=== PATIENT | male | born 1975 | race Two or more races ===

== ENCOUNTER 2021-01-19 09:57 | Emergency (ER) | payer BC, SELFPAY ==
--- NOTE | ~2021-01-19 | XR_ITS ---
EXAMINATION: XR CHEST CLINICAL INFORMATION: Chest pain COMPARISON: None TECHNIQUE: Frontal view of the chest was obtained. FINDINGS: There is no pneumothorax, pleural reaction, airspace consolidation, or effusion. The costophrenic sulci are clear. The heart is normal in size. The hilar and mediastinal contours and visualized bony structures are unremarkable. XR/XR chest 1V IMPRESSION: Unremarkable examination.
[2021-01-19 10:33] VITALS: BP 148/95; PULSE 91; RESP 20; TEMP 36.7; O2SAT 97; BMI 53.2
--- NOTE | 2021-01-19 10:39 | ECG_ITS ---
Test Reason : CHEST PAIN Blood Pressure : / mmHG Vent. Rate : 079 BPM Atrial Rate : 079 BPM P-R Int : 168 ms QRS Dur : 100 ms QT Int : 396 ms P-R-T Axes : 045 -22 031 degrees QTc Int : 454 ms Normal sinus rhythm Left axis deviation Minimal voltage criteria for LVH, may be normal variant ( R in aVL ) RSR' or QR pattern in V1 suggests right ventricular conduction delay Borderline ECG No previous ECGs available Referred By: Generic ED Physician Electronically Signed By:CONCEPCIÓN TOLBERT MD
[2021-01-19 10:57] LABS: MANUAL DIFF FLAG NO
[2021-01-19 11:02] LABS: Basophils Percent Auto 0.4 % (0-2); Eosinophils Absolute Auto 0.1 X10*3/uL (0.0-0.4); Hematocrit 42.9 % (42.0-52.0); Imm Gran Abs Auto 0.01 X10*3/uL (0.00-0.03); Imm Gran Pct Auto 0.1 % (0.0-0.4); Lymphocytes Absolute Auto 2.3 X10*3/uL (1.2-4.9); Lymphocytes Percent Auto 29.1 % (20-40); Mean Corpuscular HGB Conc 32.6 g/dl (31.0-36.0); Mean Corpuscular Hemoglobin 28.2 pg (27.0-33.0); Mean Corpuscular Volume 86.3 fL (80.0-98.0); Mean Platelet Volume 9.6 fL (9.4-12.4); Monocytes Absolute Auto 0.5 X10*3/uL (0.1-1.2); Monocytes Percent Auto 6.5 % (2-11); Neutrophils Absolute Auto 4.9 x10*3/uL (2.0-8.3); Neutrophils Percent Auto 62.9 % (45-73); Platelet Count 229 X10*3/uL (160-400); Red Blood Count 4.97 X10*6/uL (4.60-5.80); Red Cell Distribution Width 13.4 % (11.0-16.0); White Blood Count 7.8 X10*3/uL (4.8-10.8)
[2021-01-19 11:16] LABS: Anion Gap 12 (12-20); Blood Urea Nitrogen 15 mg/dL (9-16); Calcium 8.9 mg/dL (8.4-10.2); Carbon Dioxide 25 mmol/L (22-29); Chloride 104 mmol/L (96-108); Creatinine Clr Calc Pharmacy 168.9; Estimated Glomerular Filt Rate > 60; Glucose Random 128 mg/dL (60-115); Potassium 3.8 mmol/L (3.3-5.1); Sodium 137 mmol/L (135-145)
[2021-01-19 11:24] LABS: Troponin-I High Sensitivity 4.3 ng/L (<3.5-35.0)
[2021-01-19 11:55] VITALS: BP 138/81; PULSE 80; RESP 18; TEMP 36.6; O2SAT 96
--- NOTE | 2021-01-19 12:16 | ED_ITS ---
HPI - Chest Pain General Chief Complaint: Chest Pain Stated Complaint: HTN Time Seen by Provider: 01/19/21 12:16 Source: patient Mode of arrival: ambulatory Limitations: no limitations History of Present Illness HPI narrative: 45-YEAR-OLD MALE CAME IN FOR EVALUATION OF CHEST PAIN. 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 Patient nonsmoker, no history of diabetes. Patient is also complaining occipital headache since this morning, patient has no headache now. Related Data Home Medications Medication Instructions Recorded Confirmed acetaminophen 500 mg tablet 500 mg PO Q6H PRN 01/19/21 (Tylenol Extra Strength) Allergies Allergy/AdvReac Type Severity Reaction Status Date / Time No Known Allergies Allergy Unverified 11/07/19 15:33 Environmental Allergy Unknown Uncoded 11/29/17 00:00 Review of Systems Review of Systems: All other systems are reviewed and are negative Constitutional: Reports as per HPI and Reports no additional constitutional complaints Eyes: Reports as per HPI and Reports no additional eye complaints Reports system reviewed and no additional complaints, except as documented Cardiovascular: Reports as per HPI and Reports no additional cardiovascular complaints Respiratory: Reports as per HPI and Reports no additional respiratory complaints Gastrointestinal: Reports as per HPI and Reports no additional gastrointestinal complaints Genitourinary: Reports no additional female genitourinary complaints Musculoskeletal: Reports no additional musculoskeletal complaints Skin/Breast: Reports system reviewed and no additional complaints, except as docu Psychiatric: Reports no additional psychiatric complaints Endocrine: Reports no additional endocrine complaints Hematologic/Lymphatic: Reports no additional hematologic/lymphatic complaints Allergic/Immunologic: Reports no additional allergic/immunologic complaints Reports system reviewed and no additional complaints, except as documented and Reports Abnormal speech present [facility] [place] Past Medical History Medical History Hypertension Social History Social History Patient Tobacco Use Status: Former Tobacco user (4 years ago ) Advance Directives: No Advance Directives Information Provided: No Physical Exam Vital Signs: Vital Signs: Last Vital Signs Temp 98 F 01/19/21 11:55 Pulse 80 01/19/21 11:55 Resp 18 01/19/21 11:55 BP 138/81 01/19/21 11:55 Pulse Ox 96 01/19/21 11:55 Body Mass Index 53.2 Vital signs have been reviewed as appeared to be correct. Blood pressure normal. Heart rate normal. Respiration rate normal. Temperature normal. Oxygen saturation normal. Appearance: Alert. Oriented X3. No acute distress. Head: Normal external exam. Normocephalic. Atraumatic. No Stewart signs noted. No raccoon eyes noted Eyes: PERRLA. EOMI. Conjunctiva and sclera normal. Eyelids normal. ENT: TM's Normal. Pharynx normal. Uvula midline. Moist mucous membranes. No t rismus noted. No drooling noted. No muffled voice noted. Neck: Normal inspection. Neck supple. FROM. No adenopathy. Thyroid Normal. No meningeal signs. No neck mass noted. CVS: Normal heart rate and rhythm. Heart sound normal. No murmurs noted. Pulses normal throughout. Respiratory: No respiratory distress. Painless inspiration. Breath sounds normal. No wheezes/rales/rhonchi noted. Chest nontender. No accessory muscle usage noted or decreased air movement noted. Abdomen: Soft, obese, nontender Bowel sounds normal in all 4 quadrants. No distention noted. No organomegaly noted. No visible injury noted. Back: No CVA tenderness. Full range of motion noted. Skin: Skin warm and dry. Normal skin color. Normal skin turgor. No rashes/lesions/lacerations noted. Extremities: No lower extremity edema. Extremities exhibit normal range of motion. Extremities nontender. Neuro: Oriented X 3. Cranial nerve exam: II-XII are grossly intact No motor deficit. No sensory deficit. Reflexes normal. Course Course Course Narrative: Assessment and plan. 45-year-old male came in for evaluation of 1 episode of chest pain last night lasted for about 5 minutes, never re-occurred, unremarkable EKG, unremarkable troponin, chest x-ray is normal. Patient has been chest pain free for the past 15 hours. Patient also was complaining of headache that he had when his blood pressure was elevated but now he has no headache. With normal neuro exam. Patient was instructed to follow up with his PCP and keep monitoring his blood pressure. MDM - Chest Pain Medical Records Data Attestation: I reviewed the patient's medical records. Lab Data Attestation: I reviewed the patient's lab results. Result diagrams: 01/19/21 10:52 01/19/21 10:52 Labs: Lab Results 01/19/21 01/19/21 01/19/21 Range/Units 10:52 10:52 10:52 WBC 7.8 (4.8-10.8) X10*3/uL RBC 4.97 (4.60-5.80) X10*6/uL Hgb 14.0 (14.0-18.0) g/dl Hct 42.9 (42.0-52.0) % MCV 86.3 (80.0-98.0) fL MCH 28.2 (27.0-33.0) pg MCHC 32.6 (31.0-36.0) g/dl RDW 13.4 (11.0-16.0) % Plt Count 229 (160-400) X10*3/uL MPV 9.6 (9.4-12.4) fL Immature Gran % (Auto) 0.1 (0.0-0.4) % Neut % (Auto) 62.9 (45-73) % Lymph % (Auto) 29.1 (20-40) % [place] % (Auto) 6.5 (2-11) % Eos % (Auto) 1.0 (0-4) % Baso % (Auto) 0.4 (0-2) % Lymph # (Auto) 2.3 (1.2-4.9) X10*3/uL [place] # (Auto) 0.5 (0.1-1.2) X10*3/uL Eos # (Auto) 0.1 (0.0-0.4) X10*3/uL Baso # (Auto) 0.0 (0.0-0.2) X10*3/uL Abs Immat Gran (auto) 0.01 (0.00-0.03) X10*3/uL Absolute Neuts (auto) 4.9 (2.0-8.3) x10*3/uL Absolute Nucleated RBC 0.000 (0.0-0.012) X10*3/uL Nucleated RBC % (auto) 0.0 (0.0-0.2) /100WBC Sodium 137 (135-145) mmol/L Potassium 3.8 (3.3-5.1) mmol/L Chloride 104 (96-108) mmol/L Carbon Dioxide 25 (22-29) mmol/L Anion Gap 12 (12-20) BUN 15 (9-16) mg/dL Creatinine 0.80 (0.5-1.4) mg/dL Estim Creat Clear Calc 168.9 Estimated GFR > 60 Random Glucose 128 H (60-115) mg/dL Calcium 8.9 (8.4-10.2) mg/dL Troponin I High Sens 4.3 (<3.5-35.0) ng/L Imaging Data Chest x-ray: Radiologist's impression: Unremarkable chest x-ray. ECG Data ECG #1: Interpretation: Normal sinus rhythm at 79 beats per minutes, normal intervals, nonspecific ST-T changes. Discharge Plan Discharge Clinical Impression: Chest pain Patient Disposition: Home, Self-Care Instructions: Chest Pain (ED) Prescriptions: No Action acetaminophen [Tylenol Extra Strength] 500 mg tablet 500 mg PO Q6H PRNRF: 0 Referrals: Warner Burns, FITNESS ATTENDANT-BC [Primary Care Provider] - 2 days Stand Alone Forms: Work/School Release
== END 2021-01-19 12:31 | disposition home or self-care (01) ==
PROVIDERS: Emergency Provider Emergency Medicine; PCP Nurse Practitioner Family
DX: R07.9 Chest pain, unspecified (principal); I10 Essential (primary) hypertension
CPT/HCPCS: 36415; 71045; 80048; 84484; 85025; 93005; 99283

== ENCOUNTER 2021-05-03 09:20 | Outpatient (REF) | payer BC, SELFPAY ==
[2021-05-03 11:29] LABS: Appearance Urine TURBID; Color Urine YELLOW; Glucose Urine UA NEG (NEG); Leukocyte Esterase Urine NEG (NEG); Nitrite Urine NEG (NEG); PH 5.5 (5.0-8.0); Specific Gravity - Urine >= 1.030 (1.005-1.025); UACC Culture Trigger NO; Urine Blood NEG (NEG); Urine Ketones NEG (NEG); Urine Protein 1+ MG/DL (NEG-TRACE)
[2021-05-03 11:40] LABS: MANUAL DIFF FLAG NO
[2021-05-03 11:52] LABS: Amorphous Sediment Urine 4+ /LPF; Basophils Percent Auto 0.7 % (0-2); Eosinophils Absolute Auto 0.3 X10*3/uL (0.0-0.4); Eosinophils Percent Auto 5.4 % (0-4); Hematocrit 45.3 % (42.0-52.0); Hemoglobin 14.4 g/dl (14.0-18.0); Imm Gran Abs Auto 0.02 X10*3/uL (0.00-0.03); Imm Gran Pct Auto 0.3 % (0.0-0.4); Lymphocytes Percent Auto 34.4 % (20-40); Mean Corpuscular HGB Conc 31.8 g/dl (31.0-36.0); Mean Corpuscular Hemoglobin 28.2 pg (27.0-33.0); Mean Corpuscular Volume 88.6 fL (80.0-98.0); Mean Platelet Volume 10.4 fL (9.4-12.4); Monocytes Absolute Auto 0.4 X10*3/uL (0.1-1.2); Monocytes Percent Auto 6.4 % (2-11); Neutrophils Percent Auto 52.8 % (45-73); Platelet Count 218 X10*3/uL (160-400); RBC Urine 0 /HPF (0); Red Blood Count 5.11 X10*6/uL (4.60-5.80); Red Cell Distribution Width 13.5 % (11.0-16.0); Squamous Epithelial Cell Urine TRACE /LPF; WBC Urine 0 /HPF (0-4); White Blood Count 5.8 X10*3/uL (4.8-10.8)
[2021-05-03 12:09] LABS: Alanine Aminotransferase 24 U/L (0-40); Alkaline Phosphatase 61 U/L (39-117); Anion Gap 12 (12-20); Aspartate Amino Transferase 14 U/L (5-37); Bilirubin Total 0.4 mg/dL (0.0-1.0); Blood Urea Nitrogen 17 mg/dL (9-16); Calcium 8.5 mg/dL (8.4-10.2); Carbon Dioxide 26 mmol/L (22-29); Chloride 108 mmol/L (96-108); Cholesterol 151 mg/dL; Estimated Glomerular Filt Rate > 60; Glucose Fasting 122 mg/dL (60-99); HDL Cholesterol 35 mg/dL; LDL Cholesterol Calculated 106 mg/dl; Potassium 4.1 mmol/L (3.3-5.1); Sodium 142 mmol/L (135-145); Total Protein 6.5 g/dL (6.5-8.0); Triglycerides 53 mg/dL
[2021-05-03 12:35] LABS: TSH reflex Free T4 0.85 uIU/mL (0.32-4.0)
[2021-05-03 12:41] LABS: Estimated Average Glucose 126 mg/dL
== END 2021-05-03 09:21 | disposition home or self-care (01) ==
LOC: HO.HMGCLDS 09:20
PROVIDERS: PCP Nurse Practitioner Family; Visit Provider Nurse Practitioner Family
DX: Z00.00 Encounter for general adult medical examination without abnormal findings (principal); I10 Essential (primary) hypertension; R73.01 Impaired fasting glucose
CPT/HCPCS: 36415; 80053; 80061; 81001; 83036; 84443; 85025

== ENCOUNTER 2021-08-13 19:22 | Emergency (ER) | payer BC, SELFPAY ==
--- NOTE | 2021-08-13 | ECG_ITS ---
Test Reason : CHEST PAIN Blood Pressure : / mmHG Vent. Rate : 079 BPM Atrial Rate : 079 BPM P-R Int : 166 ms QRS Dur : 102 ms QT Int : 380 ms P-R-T Axes : 049 -22 034 degrees QTc Int : 435 ms Normal sinus rhythm Minimal voltage criteria for LVH, may be normal variant ( R in aVL ) Borderline ECG When compared with ECG of 19-JAN-2021 10:44, No significant change was found Referred By: Generic ED Physician Electronically Signed By:JUSTIN VERDIN MD
[2021-08-13 19:25] VITALS: BMI 53.1
[2021-08-13 19:33] VITALS: BP 147/81; PULSE 84; RESP 18; TEMP 36.9; O2SAT 98
[2021-08-13 19:36] LABS: MANUAL DIFF FLAG NO
[2021-08-13 19:37] LABS: Basophils Percent Auto 0.4 % (0-2); Eosinophils Absolute Auto 0.2 X10*3/uL (0.0-0.4); Eosinophils Percent Auto 2.5 % (0-4); Hematocrit 41.7 % (42.0-52.0); Hemoglobin 13.8 g/dl (14.0-18.0); Imm Gran Abs Auto 0.02 X10*3/uL (0.00-0.03); Imm Gran Pct Auto 0.3 % (0.0-0.4); Lymphocytes Absolute Auto 1.8 X10*3/uL (1.2-4.9); Lymphocytes Percent Auto 26.3 % (20-40); Mean Corpuscular HGB Conc 33.1 g/dl (31.0-36.0); Mean Corpuscular Volume 87.6 fL (80.0-98.0); Mean Platelet Volume 9.5 fL (9.4-12.4); Monocytes Absolute Auto 0.5 X10*3/uL (0.1-1.2); Monocytes Percent Auto 7.8 % (2-11); Neutrophils Absolute Auto 4.3 x10*3/uL (2.0-8.3); Neutrophils Percent Auto 62.7 % (45-73); Platelet Count 216 X10*3/uL (160-400); Red Blood Count 4.76 X10*6/uL (4.60-5.80); Red Cell Distribution Width 13.5 % (11.0-16.0); White Blood Count 6.9 X10*3/uL (4.8-10.8)
[2021-08-13 19:53] LABS: Alanine Aminotransferase 33 U/L (0-40); Albumin Level 4.1 g/dL (3.5-5.0); Alkaline Phosphatase 61 U/L (39-117); Anion Gap 11 (12-20); Aspartate Amino Transferase 17 U/L (5-37); Bilirubin Total 0.3 mg/dL (0.0-1.0); Blood Urea Nitrogen 18 mg/dL (9-16); Calcium 8.5 mg/dL (8.4-10.2); Carbon Dioxide 26 mmol/L (22-29); Chloride 106 mmol/L (96-108); Creatinine Clr Calc Pharmacy 171.2; Estimated Glomerular Filt Rate > 60; Glucose Random 177 mg/dL (60-115); Potassium 4.2 mmol/L (3.3-5.1); Sodium 139 mmol/L (135-145); Total Protein 6.5 g/dL (6.5-8.0)
[2021-08-13 19:56] LABS: Troponin-I High Sensitivity < 3.5 ng/L (<3.5-35.0)
--- NOTE | 2021-08-13 20:06 | ED_ITS ---
HPI - Chest Pain General Chief Complaint: Chest Pain Stated Complaint: Chest pain Time Seen by Provider: 08/13/21 20:05 History of Present Illness HPI narrative: Patient is a 46-year-old male presents today with having chest pain. The chest pain is mid chest. 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 Denies any leg swelling no history of DVTs in the past no history of travel. No history of blood clots. Patient claims the pain lasted for about an hour still have some residual pain but not as severe. Patient denies any fever chills no cough no congestion immunized for COVID. No history diabetes. Positive history of hypertension un bob control. No history of [place]. No history of smoking. No focal weakness. Related Data Home Medications Medication Instructions Recorded Confirmed acetaminophen 500 mg tablet 500 mg PO Q6H PRN 01/19/21 07/12/21 (Tylenol Extra Strength) Previous Rx's Medication Instructions Recorded lisinopril 10 mg tablet 10 mg PO DAILY 30 days #30 tabs 05/22/21 Allergies Allergy/AdvReac Type Severity Reaction Status Date / Time Environmental Allergy Unknown unknown Uncoded 07/12/21 09:43 Review of Systems Review of Systems: Positive chest pain No diaphoresis No fever no chills All system reviewed otherwise negative PMFSH Past Medical History Attestation statement: The following information was validated with the patient. Medical History Hypertension Family History Family History Other Mental health disorder Social History Social History Housing: House Patient Tobacco Use Status: Former Tobacco user (4 years ago ) Tobacco use type: Cigarette e-Cigarette/Vaping Use: Never Used Second Hand Smoke Exposure: No Advance Directives: No Advance Directives Information Provided: Yes Current occupational status: employed Cognitive needs: No Hearing needs: No Vision needs: No Physical Exam Vital Signs: Vital Signs: Last Vital Signs Temp 97.6 F 08/13/21 21:24 Pulse 78 08/13/21 21:24 Resp 18 08/13/21 21:24 BP 170/89 H 08/13/21 21:24 Pulse Ox 96 08/13/21 21:24 O2 Del Method 08/13/21 21:24 BMI result Body Mass Index 53.1 Appearance: Alert. Oriented X3. No acute distress. Eyes: Pupils equal, round and reactive to light. ENT: Pharynx normal. Neck: Normal inspection. Neck supple. No lymph nodes noted. No crepitus CVS: Normal heart rate and rhythm. Pulses normal. Normal S1 and S2 Respiratory: No respiratory distress. Breath sounds normal. No Wheezing. No rales Abdomen: Soft and nontender. No rigidity. No distention. good BS x4 Skin: Skin warm and dry. Normal skin color. Normal skin turgor. Extremities: No lower extremity edema. Neurovascular intact to all extremities. No Lacerations. No Rash Neuro: Oriented X 3. No motor deficit. No sensory deficit. Moving all extermities. No slurred speech MDM - Chest Pain MDM Narrative Medical decision making narrative: EKG showed a sinus pattern heart rate is 80 VA QRS QTC within normal limits is no acute ST segment elevation noted. Two sets of cardiac enzymes were negative. Patient well-appearing. Chest pain atypical for ACS. Patient risk factor being hypertension. No history diabetes no history of TX. Patient's EKG was benign appearing. Heart score is a 3. Will have patient follow-up on an outpatient basis. In stable condition. Medical Records Data Attestation: I reviewed the patient's medical records. Lab Data Attestation: I reviewed the patient's lab results. Result diagrams: 08/13/21 19:32 08/13/21 19:32 Labs: Lab Results 08/13/21 08/13/21 08/13/21 Range/Units 19:32 19:32 19:32 WBC 6.9 (4.8-10.8) X10*3/uL RBC 4.76 (4.60-5.80) X10*6/uL Hgb 13.8 L (14.0-18.0) g/dl Hct 41.7 L (42.0-52.0) % MCV 87.6 (80.0-98.0) fL MCH 29.0 (27.0-33.0) pg MCHC 33.1 (31.0-36.0) g/dl RDW 13.5 (11.0-16.0) % Plt Count 216 (160-400) X10*3/uL MPV 9.5 (9.4-12.4) fL Immature Gran % (Auto) 0.3 (0.0-0.4) % Neut % (Auto) 62.7 (45-73) % Lymph % (Auto) 26.3 (20-40) % [place] % (Auto) 7.8 (2-11) % Eos % (Auto) 2.5 (0-4) % Baso % (Auto) 0.4 (0-2) % Lymph # (Auto) 1.8 (1.2-4.9) X10*3/uL [place] # (Auto) 0.5 (0.1-1.2) X10*3/uL Eos # (Auto) 0.2 (0.0-0.4) X10*3/uL Baso # (Auto) 0.0 (0.0-0.2) X10*3/uL Abs Immat Gran (auto) 0.02 (0.00-0.03) X10*3/uL Absolute Neuts (auto) 4.3 (2.0-8.3) x10*3/uL Absolute Nucleated RBC 0.000 (0.0-0.012) X10*3/uL Nucleated RBC % (auto) 0.0 (0.0-0.2) /100WBC Sodium 139 (135-145) mmol/L Potassium 4.2 (3.3-5.1) mmol/L Chloride 106 (96-108) mmol/L Carbon Dioxide 26 (22-29) mmol/L Anion Gap 11 L (12-20) BUN 18 H (9-16) mg/dL Creatinine 0.78 (0.5-1.4) mg/dL Estim Creat Clear Calc 171.2 Estimated GFR > 60 Random Glucose 177 H D (60-115) mg/dL Calcium 8.5 (8.4-10.2) mg/dL Total Bilirubin 0.3 (0.0-1.0) mg/dL AST 17 (5-37) U/L ALT 33 (0-40) U/L Alkaline Phosphatase 61 (39-117) U/L Troponin I High Sens < 3.5 (<3.5-35.0) ng/L Total Protein 6.5 (6.5-8.0) g/dL Albumin 4.1 (3.5-5.0) g/dL 08/13/21 Range/Units 21:33 WBC (4.8-10.8) X10*3/uL RBC (4.60-5.80) X10*6/uL Hgb (14.0-18.0) g/dl Hct (42.0-52.0) % MCV (80.0-98.0) fL MCH (27.0-33.0) pg MCHC (31.0-36.0) g/dl RDW (11.0-16.0) % Plt Count (160-400) X10*3/uL MPV (9.4-12.4) fL Immature Gran % (Auto) (0.0-0.4) % Neut % (Auto) (45-73) % Lymph % (Auto) (20-40) % [place] % (Auto) (2-11) % Eos % (Auto) (0-4) % Baso % (Auto) (0-2) % Lymph # (Auto) (1.2-4.9) X10*3/uL [place] # (Auto) (0.1-1.2) X10*3/uL Eos # (Auto) (0.0-0.4) X10*3/uL Baso # (Auto) (0.0-0.2) X10*3/uL Abs Immat Gran (auto) (0.00-0.03) X10*3/uL Absolute Neuts (auto) (2.0-8.3) x10*3/uL Absolute Nucleated RBC (0.0-0.012) X10*3/uL Nucleated RBC % (auto) (0.0-0.2) /100WBC Sodium (135-145) mmol/L Potassium (3.3-5.1) mmol/L Chloride (96-108) mmol/L Carbon Dioxide (22-29) mmol/L Anion Gap (12-20) BUN (9-16) mg/dL Creatinine (0.5-1.4) mg/dL Estim Creat Clear Calc Estimated GFR Random Glucose (60-115) mg/dL Calcium (8.4-10.2) mg/dL Total Bilirubin (0.0-1.0) mg/dL AST (5-37) U/L ALT (0-40) U/L Alkaline Phosphatase (39-117) U/L Troponin I High Sens < 3.5 (<3.5-35.0) ng/L Total Protein (6.5-8.0) g/dL Albumin (3.5-5.0) g/dL Discharge Plan Discharge Clinical Impression: Chest pain Patient Disposition: Home, Self-Care Instructions: Chest Pain (ED) Prescriptions: No Action lisinopril 10 mg tablet 10 mg PO DAILY 30 Days Qty: 30 3RF acetaminophen [Tylenol Extra Strength] 500 mg tablet 500 mg PO Q6H PRN Referrals: Moises Cleary MD [Physician] -
[2021-08-13 21:24] VITALS: BP 170/89; PULSE 78; RESP 18; TEMP 36.4; O2SAT 96
[2021-08-13 22:01] LABS: Troponin-I High Sensitivity < 3.5 ng/L (<3.5-35.0)
[2021-08-13 22:45] VITALS: BP 176/98; PULSE 80; RESP 14; O2SAT 96
== END 2021-08-13 22:53 | disposition home or self-care (01) ==
PROVIDERS: Emergency Provider Emergency Medicine Emergency Medical Services; PCP Nurse Practitioner Family
DX: R07.89 Other chest pain (principal); Z87.891 Personal history of nicotine dependence; Z79.899 Other long term (current) drug therapy
CPT/HCPCS: 36415; 80053; 84484; 85025; 93005; 99283; 99284

== ENCOUNTER 2022-01-06 08:33 | Day surgery (SDC) | payer BC, SELFPAY ==
[2021-12-29 20:07] VITALS: BMI 50.1
--- NOTE | 2022-01-05 12:05 | HO.ANESPROP2 ---
Documented by User: Madeleine Chaudhari NP 01/05/22 12:09 HPI - Anesthesia Eval Consult details Narrative: 46yo M for Excision Lipoma Forehead, Left Excision scalp Cyst PMFSH Active Problems Active Problems: All Active Problems (Updated 12/29/21 @ 20:07 by Kae Torres RN) Chest pain (Acute) HTN (hypertension) (Acute) Elevated fasting glucose (Acute) Chest discomfort (Acute) Physical exam (Acute) Left shoulder strain (Acute) Right shoulder strain (Acute) Dermoid cyst of head (Acute) Lipoma of forehead (Acute) Morbid (severe) obesity due to excess calories (Acute) Past Medical History Medical History (Updated 12/29/21 @ 20:07 by Kae Torres RN) Asthma, stable Hypertension Migraine Snores Family History Family History Other Mental health disorder Surgical History Surgical History (Updated 12/29/21 @ 20:05 by Kae Torres RN) S/P excision of lipoma [place] teeth extracted Social History Social History Housing: House Patient Tobacco Use Status: Former Tobacco user Tobacco use type: Cigarette e-Cigarette/Vaping Use: Never Used Second Hand Smoke Exposure: No Use of substances other than those prescribed or required for medical reasons: No Are you DNR?: No Advance Directives: No Advance Directives Information Provided: Yes Advance Directives on File: No Recently lost weight without trying: No Nutrition Risks: No Nutritional Risk Current occupational status: employed Cognitive needs: No Hearing needs: No Vision needs: No Meds Allergies Allergy/AdvReac Type Severity Reaction Status Date / Time Environmental Allergy Unknown unknown Uncoded 12/07/21 07:54 Home Medications Medication Instructions Recorded Confirmed Last Taken Type acetaminophen 500 mg tablet 500 mg PO Q6H PRN Pain 01/19/21 12/29/21 Unknown History (Tylenol Extra Strength) Exam Exam Date and Time: January 05, 2022 1205 Height,Weight and Vital Signs: Height 5 ft 8 in Weight 149.685 kg Pertinent Lab Results Pertinent Lab Results: Laboratory Tests 08/13/21 08/13/21 19:32 19:32 WBC 6.9 Hgb 13.8 L Hct 41.7 L Plt Count 216 Sodium 139 Potassium 4.2 Chloride 106 Carbon Dioxide 26 BUN 18 H Creatinine 0.78 Narrative Narrative: EKG 07/2021 Vent. Rate : 079 BPM ? ? Atrial Rate : 079 BPM ?? P-R Int : 166 ms? QRS Dur : 102 ms ? ? QT Int : 380 ms ? ? ? P-R-T Axes : 049 -22 034 degrees ?? QTc Int : 435 ms ? Normal sinus rhythm Minimal voltage criteria for LVH, may be normal variant ( R in aVL ) Borderline ECG When compared with ECG of 19-JAN-2021 10:44, No significant change was found Assessment and Plan Assessment Anesthesia Assessment: Chart Reviewed Documented by User: Philip Aguirre MD 01/06/22 12:46 PMFSH Past Medical History Medical History (Updated 12/29/21 @ 20:07 by Kae Torres RN) Asthma, stable Hypertension Migraine Snores Family History Family History Other Mental health disorder Family history of problems with anesthesia: No Surgical History Surgical History (Updated 12/29/21 @ 20:05 by Kae Torres RN) S/P excision of lipoma [place] teeth extracted History of Problems with Anesthesia: No Social History Social History Housing: House Patient Tobacco Use Status: Former Tobacco user Tobacco use type: Cigarette e-Cigarette/Vaping Use: Never Used Second Hand Smoke Exposure: No Use of substances other than those prescribed or required for medical reasons: No Are you DNR?: No Advance Directives: No Advance Directives Information Provided: Yes Advance Directives on File: No Recently lost weight without trying: No Nutrition Risks: No Nutritional Risk Current occupational status: employed Cognitive needs: No Hearing needs: No Vision needs: No Meds Allergies Allergy/AdvReac Type Severity Reaction Status Date / Time Environmental Allergy Unknown unknown Uncoded 12/07/21 07:54 Home Medications Medication Instructions Recorded Confirmed Last Taken Type acetaminophen 500 mg tablet 500 mg PO Q6H PRN Pain 01/19/21 12/29/21 Unknown History (Tylenol Extra Strength) Exam Airway Mallampati Class: III TM Dist: <=3cm Neck ROM: Full Loose/Missing/Broken Teeth: Yes and Upper Heart: ok Lungs: ok Assessment and Plan Assessment Anesthesia Assessment: Anesthesia Plan Discussed and Chart Reviewed Final Anesthetic Review Family History of Problems with Anesthesia: No History of Problems with Anesthesia: No NPO: Yes ASA Class: III Final Preanesthetic Review: No Changes in Pt Med Stat, Meds/Allgs Chart Reviewed, Consent Obtained/Reviewed and Anes Risks/Benef Reviewed Patient Risk: High Procedure Risk: Low Anesthetic Plan Anesthetic Plan: GA and Agree w/ Assess. and Plan Disposition: Standard PACU
[2022-01-06] VITALS (13 sets, daily range): BP systolic 102–133; BP diastolic 60–72; PULSE 59–80; RESP 18–20; TEMP 36.3–36.8; O2SAT 91–100; BMI 51.7
--- NOTE | 2022-01-06 | ECG_ITS ---
Test Reason : postop Blood Pressure : / mmHG Vent. Rate : 062 BPM Atrial Rate : 062 BPM P-R Int : 172 ms QRS Dur : 102 ms QT Int : 448 ms P-R-T Axes : 045 -14 037 degrees QTc Int : 454 ms Normal sinus rhythm Minimal voltage criteria for LVH, may be normal variant ( R in aVL ) RSR' or QR pattern in V1 suggests right ventricular conduction delay Nonspecific T wave abnormality Inferior leads When compared with ECG of 13-AUG-2021 19:21, No significant change was found Heart rate has decreased Referred By: Tien Stewart Electronically Signed By:CONCEPCIÓN TOLBERT MD
[2022-01-06] MEDS: Lactated Ringers 1,000 ML 100 ML IVCONT (10:11)
--- NOTE | 2022-01-06 10:40 | MHC.SHP ---
Pre-Procedural Eval Section A Date of Service: 01/06/22 The patient is an INPATIENT: No The History & Physical has been completed within 30 days and I have reviewed it.: Yes Section B Chief Complaint: lipoma, cyst Allergies: Allergies Allergy/AdvReac Type Severity Reaction Status Date / Time Environmental Allergy Unknown unknown Uncoded 12/07/21 07:54 Plan I have reviewed the history and physical and performed a pertinent physical examination on my patient. No changes have occurred unless specified.
--- NOTE | 2022-01-06 13:51 | W.PM.OPN ---
Operative Note Operative Note Date of Service: 01/06/22 Narrative: Preop diagnosis: [1) Lipoma, forehead; sebaceous cyst, LEFT retroauricular scalp] Postop diagnosis: [1) sub fascial forehead lipoma measuring approximately 3.5 by 3.0 cm; left retroauricular scalp sebaceous cyst, noninfected] Procedure: [1) excision of a subfascial lipoma on the forehead with intermediate closure of 5 cm incision; 2) excision of sebaceous cyst, left return to a reticular scalp] Surgeon: Bennie Back MD Assist: [none] Anesthesia: [General via LMA; local Lidocaine, 1% & bupivicaine, 0.5% w/ epi] Estimated blood loss: [3cc] Specimen: [1) forehead lipoma; 2) LEFT scalp/retroauricular sebaceous cyst] Intraoperative findings: [Subfascial/frontalis lipoma on the forehead; noninfected sebaceous cyst left retroauricular scalp skin] Indications: [The patient is a 46-year-old gentleman who is had a slowly growing lipoma on his forehead that suddenly started to rapidly grow and is causing grooming issues given its proximity to his forehead and scalp hairline. He also has a sebaceous cyst behind his left ear that is growing and has no signs or symptoms of infection, but again, due to grooming issues he wanted it removed. I reviewed the inherent risks of bleeding, infection, scar formation, possibility of wound complications that could cause additional scarring or needed another procedure and the possibility of recurrence. Activity restrictions were reviewed and apparently understood. The patient declined the option of a 2nd opinion wanted to proceed.] Procedure: [The patient was identified in preoperative holding by myself and marked. He denied interval change to his health history. 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 He was placed in operating suite 3 supine position and general via LMA was administered with excellent effect. He was then prepped and draped using Betadine and his hair clipped in the area of the sebaceous cyst and near the forehead to minimize possible fire risk. H was then positioned with his head elevated 30 degrees and slightly turned to his right Local was infiltrated into the skin and subcutaneous tissues. At the forehead, a 5 cm incision was made sharply and carried into subcutaneous tissues using electrocautery for hemostasis. The lipoma was not identified in the subcutaneous tissues, consequently, the fascia was opened and the lipoma very clearly demonstrated. Tenotomy scissors were used to remove the lipoma from the skull and the area was irrigated copiously inspected for hemostasis which was good. An intermediate closure using interrupted 3-0 Polysorb on the fascia was performed, but the skin was closed with 4-0 polypropylene sutures. The area was then washed and dried. Attention was then directed to the left retroauricular scalp where local it previously been infiltrated. A transverse incision measuring approximately 3 cm was made and careful circumferential of the cyst was performed with extraction of the entire cyst wall and contents. The area was then irrigated and interrupted 3-0 polypropylene sutures used to close the skin. The area was, the patient's face and scalp were all washed bacitracin and dressings applied. Patient tolerated the procedure well was sent extubated the recovery in stable condition. All sponge needle instrument counts were correct. At the patient's request, I contacted his mother at [phone] and apprised her of the operation, activity restrictions and recommendations regarding ice and [id number] Tylenol/ibuprofen mix. Her questions seemed to be satisfactorily answered.]
[2022-01-06] MEDS: Acetaminophen 325 MG TABLET 650 MG PO (14:42)
--- NOTE | 2022-01-06 15:12 | PC.NURSE ---
BS 122. EKG and labs ordered by Dr. Stewart. Dr. Wade, Dr. Stewart and Dr. Aguirre assessed pt prior to orders.
[2022-01-06 15:13] LABS: Glucose, Whole Blood 122 mg/dL (60-115)
--- NOTE | 2022-01-06 15:14 | PC.NURSE ---
ekg at bedside. Patient denies chest pain. VS WNL. only diaphoresis noted. pt tolerating PO fluids well. notes pain improvement at this time.
--- NOTE | 2022-01-06 15:32 | PM.EVENT ---
Event Note Date of Service: 01/06/22 Event Note: Patient seen in PACU secondary to diaphoresis. He denies chest pain, difficulty breathing or shortness of breath. He had some left scalp pain that was rendered pain-free by Tylenol. At this time, he denies any significant issues. Case reviewed with Dr. Aguirre; EKG WNL; troponin pending Incision care instructions were reviewed again with the patient. The patient seems to understand.
[2022-01-06 16:01] LABS: Troponin-I High Sensitivity < 3.5 ng/L (<3.5-35.0)
--- NOTE | 2022-01-06 16:04 | PC.NURSE ---
Dr. Stewart and Dr. Wade updated regarding lab results. Both stated patient can be discharged home. Diaphoresis is resolved.
== END 2022-01-06 16:13 | disposition home or self-care (01) ==
LOC: HO.SSS 08:33
PROVIDERS: Anesthesiology; PCP Nurse Practitioner Family; Visit Provider Surgery
PROC: (CPT 21014; principal; 2022-01-06 11:00)
PROC: (CPT 21014; 2022-01-06 11:00)
DX: D17.0 Benign lipomatous neoplasm of skin and subcutaneous tissue of head, face and neck (principal); L72.11 Pilar cyst; I97.89 Other postprocedural complications and disorders of the circulatory system, not elsewhere classified; R61 Generalized hyperhidrosis; I10 Essential (primary) hypertension; R73.03 Prediabetes; J45.909 Unspecified asthma, uncomplicated; R07.9 Chest pain, unspecified; R06.83 Snoring; G43.909 Migraine, unspecified, not intractable, without status migrainosus; E66.01 Morbid (severe) obesity due to excess calories; Z68.43 Body mass index [BMI] 50.0-59.9, adult; Z79.899 Other long term (current) drug therapy; Z87.891 Personal history of nicotine dependence
CPT/HCPCS: 21014; 11422; 36415; 82947; 84484; 88304; 93005; J0690; J3010

== ENCOUNTER 2022-12-06 11:36 | Outpatient (AMB) | payer BC, SELFPAY ==
--- NOTE | 2022-12-06 11:41 | MHC.OFFVIS ---
Intake Vital Signs 12/06/22 11:42 Height 5 ft 7 in Weight 324 lb 15.382 oz BMI 50.9 BP 136/58 L Blood Pressure Location Lt brachial Position Sitting Pulse 75 Intake Visit Reasons: Colonoscopy Screening Intake Note: Patient presents to in office visit today as a new patient for colonoscopy screening. CC: One episode of diarrhea a few days ago but is now resolved. Hx of hemorrhoids and colonoscopy when PT was about 16-17 years old. Denies having any other GI symptoms or concerns today. 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 He is referred by Warner Burns of [facility] [place]. PMX Asthma Hypertension Morbid obesity Migraines Snoring Dermoid cyst of the forehead Elevated fasting glucose Right and left shoulder pain * SURGICAL HISTORY Forehead excision [place] teeth extracted TOnsillectomy age 16ish * ALLERGIES: NKDA * [place] LABS: NONE RECENT TODAY'S VISIT He had a prior colonoscopy in his teen years for RB and roids. HE denies any bowel or upper GI problems. There are no prior problems with anesthesia or sedation. He has well controlled asthma and snores at night but not tested for WILL, no cardiac problems. No ID problems. There is no known FHX of crc or polyps. [facility] Medical History (Updated 12/06/22 @ 12:20 by SATURNINO Richard) Migraine Snores Asthma, stable Hypertension Surgical History History of tonsillectomy H/O colonoscopy S/P excision of lipoma [place] teeth extracted Family History Other Mental health disorder Social History Housing: House Patient Tobacco Use Status: Former Tobacco user Tobacco use type: Cigarette e-Cigarette/Vaping Use: Never Used Second Hand Smoke Exposure: No Current occupational status: employed Cognitive needs: No Hearing needs: No Vision needs: No Review of Systems Const Denies fatigue, Denies fever(s), Denies night sweats, Denies poor appetite and Denies weight loss Eyes Details: glasses Reports requires corrective lenses ENT Reports Normal hearing present, Denies dental pain, Denies dysphagia, Denies hearing loss, Denies mouth pain, Denies odynophagia, Denies throat swelling, Denies tongue swelling and Reports other (Dentition adequate) Card Reports no additional complaints Resp Reports no additional complaints GI Denies abdominal pain, Denies melena, Denies bloating, Denies hematochezia, Denies constipation, Denies GI cramping, Denies dysphagia, Denies excessive flatus, Denies early satiety, Denies heartburn, Denies diarrhea, Denies nausea, Denies odynophagia, Denies vomiting and Denies hematemesis Skin/Breast Denies pruritus, Denies lesions, Denies rash and Denies jaundice Neuro Reports Normal hearing present and Denies Abnormal speech present Endo Denies fatigue Aller/Immun Denies throat swelling and Denies tongue swelling Physical Exam Vital Signs: Last Vital Signs Pulse 75 12/06/22 11:42 BP 136/58 L 12/06/22 11:42 BMI result Body Mass Index 50.9 Const General: cooperative, no acute distress, well developed and well groomed Nutritional Appearance: well nourished and obese morbidly obese Orientation/consciousness: oriented to person, oriented to place and oriented to time Limitations: No language barrier HEENT Head: Yes normocephalic and Yes atraumatic Eyes General: appearance normal, both eyes and all related structures Pupils: Equal, round and reactive pupils present Neck Neck: Yes normal visual inspection and Yes no lymphadenopathy Thyroid: Thyroid normal Resp Effort & Inspection: normal respiratory effort and able to speak in complete sentences Auscultation: clear to auscultation bilaterally Cardio Rate: regular rate Rhythm: regular rhythm Heart sounds: Normal, physiologic split S2 sound present Peripheral pulses: radial pulses present and posterior tibial pulses present GI Inspection: No distended, Yes Abdominal panniculus present and Yes obesity Palpation (GI): Soft to palpation, nontender, no guarding, not rigid and No hepatosplenomegaly present Percussion: Yes normal to percussion Auscultation: normal bowel sounds Rectal Exam - Male: Yes deferred Skin General skin exam: no rashes or lesions noted, turgor normal, skin not dry, no jaundice, No spider nevi and no striae Rashes: no rashes Nails: normal Neuro General: oriented to person, oriented to place and oriented to time Cranial nerves: Yes Equal, round and reactive pupils present and Yes Normal hearing present Speech: No Abnormal speech present Extrem General: Yes normal to inspection, No clubbing, No cyanosis and No edema Psych Appearance: grossly normal and well kempt Mental Status: mental status grossly normal Speech and movement: Normal speech and movement present Affect: normal affect Attitude: cooperative Thought process: Normal thought process present and not confabulating Thought content: Normal thought content present Insight: Good insight present (Psych) Judgement: Good judgement present (Psych) Assessment & Plan Assessment & Plan (1) Pre-op examination: Code(s): Z01.818 - Encounter for other preprocedural examination Plan: He had a prior colonoscopy in his teen years for RB and roids. HE denies any bowel or upper GI problems. There are no prior problems with anesthesia or sedation. He has well controlled asthma and snores at night but not tested for WILL, no cardiac problems. No ID problems. There is no known FHX of crc or polyps. (2) Morbid (severe) obesity due to excess calories: Code(s): E66.01 - Morbid (severe) obesity due to excess calories (3) Asthma, stable: Code(s): J45.909 - Unspecified asthma, uncomplicated (4) Snores: Comment: ?WILL NOT TESTED Code(s): R06.83 - Snoring Orders: Orders Colonoscopy - GI Use Only Today Z01.818 - Encounter for other preprocedural examination Medications: New peg 3350-electrolytes 236-22.74-6.74 -5.86 gram (Golytely) until fecal effluent is clear; do not exceed a total volume of 2,000 mL 240 mL PO Q10M 1 day 4,000 mL 0RF Z12.11 - Encounter for screening for malignant neoplasm of colon Coding Level of Care Code New Pt Level 3 (77680) Diagnoses Pre-op examination Z01.818 Morbid (severe) obesity due to excess calories E66.01 Asthma, stable J45.909 Snores R06.83
[2022-12-06 11:42] VITALS: BP 136/58; PULSE 75; BMI 50.9
== END 2022-12-06 12:55 | disposition home or self-care (01) ==
PROVIDERS: PCP Nurse Practitioner Family; Visit Provider Nurse Practitioner
DX: Z01.818 Encounter for other preprocedural examination (principal); Z12.11 Encounter for screening for malignant neoplasm of colon; K52.9 Noninfective gastroenteritis and colitis, unspecified
CPT/HCPCS: S0285

== ENCOUNTER → 2022-12-06 11:36 | Outpatient (BNVA) | payer BC, SELFPAY | PROVIDERS: PCP Nurse Practitioner Family; Visit Provider Nurse Practitioner ==

== ENCOUNTER 2022-12-19 09:10 | Outpatient (REF) | payer BC, SELFPAY | END 2022-12-19 09:11 | disposition home or self-care (01) | LOC: HO.LAB 09:10 | PROVIDERS: PCP Nurse Practitioner Family; Visit Provider Nurse Practitioner | DX: Z13.89 Encounter for screening for other disorder (principal) ==

== ENCOUNTER 2023-01-27 08:10 | Outpatient (AMB) | payer BC, SELFPAY ==
--- NOTE | 2023-01-27 09:47 | AM.OFFWIN_ITS ---
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) Intake Note: pt is here for c/o right knee pain Patient Tobacco Use Status: Former Tobacco user Allergies No Known Drug Allergies Allergy (Unknown, Verified 01/27/23 09:49) none Environmental Allergy (Unknown, Uncoded 12/07/21 07:54) unknown Do you need a note to return to daycare/school/sports/work: Yes HPI HPI Comments History of Present Illness Details 1010 47-year-old male history of obesity, hyp ertension, WILL presents with right-sided knee pain since last Monday, patient reports he was walking last Monday out of his office heard a pop in his right knee in suddenly started experiencing pain. Reports he has been wearing a knee brace with some relief. Pain is worse when he sits still for long periods of times or at time when he stands up and walks goes up a step. He denies numbness, tingling, fevers, chills, blunt trauma. Physical exam slight discomfort with range of motion of right knee particularly with ambulation. Negative anterior, posterior drawer. Positive Lynne's sign. 2+ dorsalis pedis, anterior tibialis and posterior to his the Allis pulses equal bilateral History and physical exam concerning for possible meniscus injury versus osteoarthritis. Other differentials include inflammatory arthritis, knee sprain or strain. Unlikely neurovascular compromise or threat to limb Plan at this time imaging will give orthopedic referral. Educated patient on diagnosis and treatment plan, answered all question, patient verbalizes understanding. At this time patient will be discharged home, advised to return with new or worsening symptoms. Educated on worrisome signs and symptoms and when to return. At this time I feel comfortable discharge home. [facility] Medical History Migraine Snores Asthma, stable Hypertension Surgical History History of tonsillectomy H/O colonoscopy S/P excision of lipoma [place] teeth extracted Family History Other Mental health disorder Social History Housing: House Patient Tobacco Use Status: Former Tobacco user Tobacco use type: Cigarette e-Cigarette/Vaping Use: Never Used Second Hand Smoke Exposure: No Current occupational status: employed Cognitive needs: No Hearing needs: No Vision needs: No Review of Systems Const Details: Constitutional : No Weight loss, No Fever, No Chills, No Fatigue, No Malaise ENT/Mouth : No sore throat, No Rhinorrhea Eyes: No Eye Pain, No Swelling, No Redness Cardiovascular : No Chest Pain, No SOB, No Dyspnea on Exertion, No Orthopnea, No Edema, No Palpitations Respiratory : No Cough, No Sputum, No Wheezing Gastrointestinal : No Nausea, No Vomiting, No Diarrhea, No Constipation, No abdominal Pain, No Hematochezia, No Melena Genitourinary : No Dysuria, No Urinary Frequency, No Hematuria, Musculoskeletal : + joint pain, No Myalgias, + Joint Swelling Skin : No Skin Lesions, No rash Neuro : No Weakness, No Numbness, No Dizziness, No Headache Psych : No Anxiety/Panic, No Depression All other systems reviewed and are negative All systems reviewed & are unremarkable except as noted in HPI and below Physical Exam Vital Signs: Last Vital Signs Temp 98.0 F 01/27/23 09:48 Pulse 78 01/27/23 09:48 BP 152/90 H 01/27/23 09:48 Pulse Ox 98 01/27/23 09:48 Oxygen Delivery Method Room Air 01/27/23 09:48 BMI result Body Mass Index 51.1 Vital signs stable Appearance: Alert.? Oriented X3.? No acute distress.? Head: Normocephalic, atraumatic, no step-offs or deformities Eyes: Pupils equal, round and reactive to light.? ENT: Pharynx normal.? Neck: Normal inspection.? Neck supple.? CVS: Normal heart rate and rhythm.? Pulses normal.? Respiratory: No respiratory distress.? Breath sounds normal.? Abdomen: Soft and nontender.? Skin: Skin warm and dry.? Normal skin color.? Normal skin turgor.? Extremities: No lower extremity edema.? No calf ttp. 5/5 strength to bilateral upper and lower extremities +slight discomfort with range of motion of right knee particularly with ambulation. Negative anterior, posterior drawer. Positive Lynne's sign. 2+ dorsalis pedis, anterior tibialis and posterior to his the Allis pulses equal bilateral Back: No midline tenderness, no C-spine tenderness, full range of motion, no CVA tenderness bilaterally Neuro: Oriented X 3.? No motor deficit.? No sensory deficit. CN 2-12 intact Assessment & Plan Assessment & Plan (1) Right knee pain: Code(s): M25.561 - Pain in right knee Plan Take your medications as prescribed. If you were prescribed antibiotics today, it is important that you take your medication to their entirety, do not skip any doses, do not finish them early. Follow-up with your primary care provider this week. Return to the emergency department with new or worsening symptoms. Such as fevers, chills, chest pain, shortness of breath, nausea, vomiting, dizziness, headache, vision changes, lethargy In case of emergency call 911 Orders: Orders XR knee RT 2V Today M25.561 - Pain in right knee Referrals Orthopedics Referral M25.561 - Pain in right knee Medications: New lisinopril 10 mg PO DAILY 30 tabs 0RF Coding Level of Care Code Est Pt Level 3 (34458) Diagnoses Right knee pain M25.561
[2023-01-27 09:48] VITALS: BP 152/90; PULSE 78; TEMP 36.7; O2SAT 98; BMI 51.1
== END 2023-01-27 10:52 | disposition home or self-care (01) ==
PROVIDERS: PCP Nurse Practitioner Family; Visit Provider Physician Assistant
DX: M25.561 Pain in right knee (principal)
CPT/HCPCS: 99213

== ENCOUNTER 2023-01-27 10:02 | Outpatient (REF) | payer BC, SELFPAY ==
--- NOTE | ~2023-01-27 | XR_ITS ---
EXAMINATION: XR KNEE, RIGHT CLINICAL INFORMATION: Right knee pain. COMPARISON: None available. TECHNIQUE: Four views of the right knee. FINDINGS: Small suprapatellar effusion. No fracture or dislocation. Mild medial knee joint narrowing. XR/XR knee RT 2V IMPRESSION: Small suprapatellar effusion. No acute bony pathology.
== END 2023-01-27 10:03 | disposition home or self-care (01) ==
LOC: HO.HMGCX 10:02
PROVIDERS: PCP Nurse Practitioner Family; Visit Provider Physician Assistant
DX: M25.561 Pain in right knee (principal)
CPT/HCPCS: 73560

== ENCOUNTER 2023-02-22 07:43 | Outpatient (AMB) | payer BC, SELFPAY ==
--- NOTE | 2023-02-22 07:45 | MHC.OFFVIS ---
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 Patient reports he was walking out of his office heard a pop in his right knee in suddenly started experiencing pain. He states wearing a knee brace provides him mild relief. The patient has tried Tylenol and anti-inflammatory medicines which gave him minimal relief. He has also done physical therapy exercises which aggravated his pain. He states that his right knee will give out several times per day. Allergies No Known Drug Allergies Allergy (Unknown, Verified 02/22/23 07:56) none Environmental Allergy (Unknown, Uncoded 12/07/21 07:54) unknown Medication List - Last Reconciled 02/22/23 by David Santo MD acetaminophen (Tylenol Extra Strength) 500 mg PO Q6H PRN ibuprofen 800 mg PO Q8H PRN lisinopril 10 mg PO DAILY lisinopril 10 mg PO DAILY 30 days [facility] Medical History Migraine Snores Asthma, stable Hypertension Surgical History History of tonsillectomy H/O colonoscopy S/P excision of lipoma [place] teeth extracted Family History Other Mental health disorder Social History Housing: House Patient Tobacco Use Status: Former Tobacco user Tobacco use type: Cigarette e-Cigarette/Vaping Use: Never Used Second Hand Smoke Exposure: No Current occupational status: employed Cognitive needs: No Hearing needs: No Vision needs: No Physical Exam Vital Signs: BMI result Body Mass Index 51.1 Const Other: Well-nourished well-developed very friendly male awake alert and oriented x3 in no acute distress Extrem Other: Bilateral lower extremity examination shows good capillary refill, no skin lesions noted, normal sensation light touch Right knee examination shows a minimal effusion, minimal crepitus with range of motion, tenderness along his medial joint line, positive Lynne's test, no instability Results Reviewed Results Reviewed: Standing full weight-bearing x-rays of the patient's right knee show mild grade 1 Kellgren joint space narrowing, no acute bony abnormalities Assessment & Plan Assessment & Plan (1) Right knee pain: Code(s): M25.561 - Pain in right knee Plan Mr. Pradhan presents with progressively worsening right knee pain and giving way most likely due to a tear of his medial meniscus. Thus, I will send the patient for an MRI of his right knee for further evaluation of his medial meniscus. If he does have a significant tear I will recommend arthroscopic surgery to optimize is future functional level. I will see him back once the MRI is completed to discuss the findings and treatment options. Feel free to call me at any time should questions regarding his orthopedic management arise. Thank you very much for asking me to see this very friendly gentleman. I spent 22 minutes in reviewing the patient's records and imaging studies, seeing the patient and documenting in the medical record. Orders: Orders MR knee RT wo con Today M25.561 - Pain in right knee Coding Level of Care Code New Pt Level 2 (08755) Diagnoses Right knee pain M25.561
[2023-02-22 07:47] VITALS: BMI 51.1
== END 2023-02-22 08:06 | disposition home or self-care (01) ==
PROVIDERS: PCP Nurse Practitioner Family; Visit Provider Orthopaedic Surgery
DX: M25.561 Pain in right knee (principal)
CPT/HCPCS: 99202

== ENCOUNTER → 2023-02-22 07:43 | Outpatient (BNVA) | payer BC, SELFPAY | PROVIDERS: PCP Nurse Practitioner Family; Visit Provider Orthopaedic Surgery ==

== ENCOUNTER 2023-03-08 07:37 | Outpatient (AMB) | payer BC, SELFPAY ==
--- NOTE | 2023-03-08 07:39 | A.OFFVIS_ITS ---
Intake Intake Visit Reasons: ov-Right knee MRI review Intake Note: Kali is a 47 year old male who presents today with complaints of right knee pain and giving way. Patient reports he was walking out of his office heard a pop in his right knee in suddenly started experiencing pain. He states wearing a knee brace provides him mild relief. The patient has tried Tylenol and anti- inflammatory medicines which gave him minimal relief. He has also done physical therapy exercises which aggravated his pain. He states that his right knee will give out several times per day. Allergies No Known Drug Allergies Allergy (Unknown, Verified 03/08/23 07:39) none Environmental Allergy (Unknown, Uncoded 03/08/23 07:39) unknown Medication List - Last Reconciled 03/08/23 by David Santo MD acetaminophen (Tylenol Extra Strength) 500 mg PO Q6H PRN ibuprofen 800 mg PO Q8H PRN lisinopril 10 mg PO DAILY lisinopril 10 mg PO DAILY 30 days [facility] Medical History Migraine Snores Asthma, stable Hypertension Surgical History History of tonsillectomy H/O colonoscopy S/P excision of lipoma [place] teeth extracted Family History Other Mental health disorder Social History Housing: House Patient Tobacco Use Status: Former Tobacco user Tobacco use type: Cigarette e-Cigarette/Vaping Use: Never Used Second Hand Smoke Exposure: No Current occupational status: employed Cognitive needs: No Hearing needs: No Vision needs: No Physical Exam Const Other: Well-nourished well-developed very friendly male awake alert and oriented x3 in no acute distress Extrem Other: Bilateral lower extremity examination shows good capillary refill, no skin lesions noted, normal sensation light touch Right knee examination shows a minimal effusion, minimal crepitus with range of motion positive Lynne's test, tenderness along his medial joint line, no instability Results Reviewed Results Reviewed: Standing full weight-bearing x-rays of the patient's right knee show minimal grade 1 Kellgren joint space narrowing, no acute bony abnormalities MRI of the patient's right knee shows mild diffuse joint space narrowing as well as a tear of the medial meniscus Assessment & Plan Assessment & Plan (1) Right knee pain: Code(s): M25.561 - Pain in right knee Plan Mr. Pradhan presents with progressively worsening right knee pain and mechanical symptoms due to a tear of his medial meniscus. I had a lengthy discussion with the patient regarding the treatment options. At this point he has failed continued non operative treatments. The risks and benefits of right knee arthroscopic surgery were discussed at length with the patient. The patient wishes to proceed with surgery. Surgery will most likely involve right knee diagnostic arthroscopy with partial medial meniscectomy. The patient does understand that he may not get 100% relief of his symptoms depending on the severity of his degenerative changes. The patient will be scheduled for a next available date. He will follow-up as instructed. Feel free to call me at any time should questions regarding his orthopedic management arise. I spent 20 minutes in reviewing the patient's records and imaging studies, seeing the patient and documenting in the medical record. Coding Level of Care Code Est Pt Level 2 (69888) Diagnoses Right knee pain M25.561
== END 2023-03-08 07:48 | disposition home or self-care (01) ==
PROVIDERS: PCP Nurse Practitioner Family; Visit Provider Orthopaedic Surgery
DX: S83.241A Other tear of medial meniscus, current injury, right knee, initial encounter (principal)
CPT/HCPCS: 99213

== ENCOUNTER → 2023-03-08 07:37 | Outpatient (BNVA) | payer BC, SELFPAY | PROVIDERS: PCP Nurse Practitioner Family; Visit Provider Orthopaedic Surgery ==

== ENCOUNTER 2023-04-06 07:51 | Outpatient (AMB) | payer BC, SELFPAY ==
--- NOTE | 2023-04-06 07:57 | A.OFFVIS_ITS ---
Intake Vital Signs 04/06/23 07:59 Height 5 ft 7 in Weight 326 lb BMI 51.1 Intake Visit Reasons: Pre-Rt Knee 04/28/23 Intake Note: Kali is a 47 year old male who presents today with complaints of right knee pain and giving way. Patient reports he was walking out of his office heard a pop in his right knee in suddenly started experiencing pain. He states wearing a knee brace provides him mild relief. The patient has tried Tylenol and anti- inflammatory medicines which gave him minimal relief. He has also done physical therapy exercises which aggravated his pain. He states that his right knee will give out several times per day. Allergies No Known Drug Allergies Allergy (Unknown, Verified 04/06/23 08:00) none Environmental Allergy (Unknown, Uncoded 03/08/23 07:39) unknown Medication List - Last Reviewed 04/06/23 by Darlin iGlmore CMA acetaminophen (Tylenol Extra Strength) 500 mg PO Q6H PRN ibuprofen 800 mg PO Q8H PRN lisinopril 10 mg PO DAILY lisinopril 10 mg PO DAILY 30 days [facility] Medical History Migraine Snores Asthma, stable Hypertension Surgical History History of tonsillectomy H/O colonoscopy S/P excision of lipoma [place] teeth extracted Family History Other Mental health disorder Social History Housing: House Patient Tobacco Use Status: Former Tobacco user Tobacco use type: Cigarette e-Cigarette/Vaping Use: Never Used Second Hand Smoke Exposure: No Current occupational status: employed Cognitive needs: No Hearing needs: No Vision needs: No Physical Exam Vital Signs: BMI result Body Mass Index 51.1 Const Other: Well-nourished well-developed very friendly male awake alert and oriented x3 in no acute distress Lungs - clear to auscultation bilaterally with symmetric expansion Cardiovascular exam - regular rate and rhythm Abdominal exam - soft nontender nondistended Extrem Other: Bilateral lower extremity examination shows good capillary refill, no skin lesions noted, normal sensation light touch Right knee examination shows a minimal effusion, minimal crepitus with range of motion, tenderness along his medial and lateral joint lines, positive Lynne's test, no instability Results Reviewed Results Reviewed: Standing full weight-bearing x-rays of the patient's right knee show mild diffuse joint space narrowing, no acute bony abnormalities MRI of the patient's right knee shows mild diffuse degenerative changes, tearing of the medial meniscus and possible lateral meniscus tearing, no acute bony abnormalities Assessment & Plan Assessment & Plan (1) Right knee pain: Code(s): M25.561 - Pain in right knee Plan Mr. Pradhan presents with progressively worsening right knee pain and giving way due to a medial meniscus tear and possible lateral meniscus tearing. I had a lengthy discussion with the patient regarding the treatment options. At this point he has failed continued non operative treatments. The risks and benefits of right knee arthroscopic surgery were discussed at length with the patient. The patient wishes to proceed with surgery. Surgery will most likely involve right knee diagnostic arthroscopy with partial medial meniscectomy and possible partial lateral meniscectomy. The patient does understand that he may not get 100% relief of his symptoms depending on the severity of his degenerative changes. He was given a prescription for oxycodone at his preoperative appointment. He will follow-up as instructed. Free to call me at any time should questions regarding his orthopedic management arise. I spent 22 minutes in reviewing the patient's records and imaging studies, seeing the patient and documenting in the medical record. Medications: New oxycodone Partial Fill upon patient request. 5 mg PO Q6H PRN 20 tabs 0RF pain Coding Level of Care Code Est Pt Level 2 (46004) Diagnoses Right knee pain M25.561
[2023-04-06 07:59] VITALS: BMI 51.1
== END 2023-04-06 08:11 | disposition home or self-care (01) ==
PROVIDERS: PCP Nurse Practitioner Family; Visit Provider Orthopaedic Surgery
DX: M25.561 Pain in right knee (principal)
CPT/HCPCS: 99024

== ENCOUNTER → 2023-04-06 07:51 | Outpatient (BNVA) | payer BC, SELFPAY | PROVIDERS: PCP Nurse Practitioner Family; Visit Provider Orthopaedic Surgery ==

== ENCOUNTER 2023-04-21 09:16 | Day surgery (SDC) | payer BC, SELFPAY ==
--- NOTE | 2023-04-20 12:10 | HO.ANESPROP2 ---
Documented by User: Madeleine Chaudhari NP 04/20/23 12:10 HPI - Anesthesia Eval Consult details Narrative: 48yo M for Colonoscopy PMFSH Active Problems Active Problems: All Active Problems (Updated 02/22/23 @ 08:07 by David Santo MD) Right knee pain (Acute) Snores (Acute) Asthma, stable (Acute) Pre-op examination (Acute) Screening for colon cancer (Acute) Chest pain (Acute) HTN (hypertension) (Acute) Elevated fasting glucose (Acute) Chest discomfort (Acute) Physical exam (Acute) Left shoulder strain (Acute) Right shoulder strain (Acute) Dermoid cyst of head (Acute) Lipoma of forehead (Acute) Morbid (severe) obesity due to excess calories (Acute) Past Medical History Medical History Migraine Snores Asthma, stable Hypertension Family History Family History Other Mental health disorder Family history of problems with anesthesia: No Surgical History Surgical History History of tonsillectomy H/O colonoscopy S/P excision of lipoma [place] teeth extracted History of Problems with Anesthesia: No Social History Social History Housing: House Patient Tobacco Use Status: Former Tobacco user Tobacco use type: Cigarette e-Cigarette/Vaping Use: Never Used Second Hand Smoke Exposure: No Use of substances other than those prescribed or required for medical reasons: No Are you DNR?: No Advance Directives: No Advance Directives Information Provided: Yes Current occupational status: employed Cognitive needs: No Hearing needs: No Vision needs: No Meds Allergies Allergy/AdvReac Type Severity Reaction Status Date / Time No Known Drug Allergies Allergy Unknown none Verified 04/21/23 12:00 Environmental Allergy Unknown unknown Uncoded 04/21/23 12:00 Home Medications Medication Instructions Recorded Confirmed Last Taken Type acetaminophen 500 mg tablet 500 mg PO Q6H PRN Pain 01/19/21 04/21/23 Unknown History (Tylenol Extra Strength) ibuprofen 800 mg tablet 800 mg PO Q8H PRN Pain 12/06/22 04/21/23 Unknown History Assessment and Plan Assessment Anesthesia Assessment: Chart Reviewed Final Anesthetic Review Family History of Problems with Anesthesia: No History of Problems with Anesthesia: No Documented by User: Kelsie Mccauley MD 04/21/23 12:55 [facility] Past Medical History Medical History Migraine Snores Asthma, stable Hypertension Family History Family History Other Mental health disorder Surgical History Surgical History History of tonsillectomy H/O colonoscopy S/P excision of lipoma [place] teeth extracted Social History Social History Housing: House Patient Tobacco Use Status: Former Tobacco user Tobacco use type: Cigarette e-Cigarette/Vaping Use: Never Used Second Hand Smoke Exposure: No Use of substances other than those prescribed or required for medical reasons: No Are you DNR?: No Advance Directives: No Advance Directives Information Provided: Yes Current occupational status: employed Cognitive needs: No Hearing needs: No Vision needs: No Meds Allergies Allergy/AdvReac Type Severity Reaction Status Date / Time No Known Drug Allergies Allergy Unknown none Verified 04/21/23 12:00 Environmental Allergy Unknown unknown Uncoded 04/21/23 12:00 Home Medications Medication Instructions Recorded Confirmed Last Taken Type acetaminophen 500 mg tablet 500 mg PO Q6H PRN Pain 01/19/21 04/21/23 Unknown History (Tylenol Extra Strength) ibuprofen 800 mg tablet 800 mg PO Q8H PRN Pain 12/06/22 04/21/23 Unknown History Exam Airway Mallampati Class: III (one false tooth top) TM Dist: >3cm Neck ROM: Full Heart: rrr Lungs: cta Assessment and Plan Assessment Anesthesia Assessment: Anesthesia Plan Discussed Final Anesthetic Review NPO: Yes ASA Class: III Final Preanesthetic Review: No Changes in Pt Med Stat, Meds/Allgs Chart Reviewed and Consent Obtained/Reviewed Patient Risk: Intermediate Procedure Risk: Low Anesthetic Plan Anesthetic Plan: MAC: Disposition: Standard PACU
[2023-04-21 11:52] VITALS: BMI 50.6
--- NOTE | 2023-04-21 11:59 | P.HPSUR_ITS ---
Pre-Procedural Eval Section A - 24 Hr Update-Section A only Date of Service: 04/21/23 The patient is an INPATIENT: No The patient has been examined within 24 hours of the surgical procedure. The History & Physical has been completed within 30 days and I have reviewed it.: No Section B - Complete if H&P > 30 days Chief Complaint: screening Relevant Family History (Specify if Yes): No Relevant Social History: Tobacco Use (former smoker) Present Medications: see Short Stay Collaborative assessment Medical History: Significant History (Asthma Hypertension Morbid obesity Migraines Snoring Dermoid cyst of the forehead Elevated fasting glucose Right and left shoulder pain ) History of Previous Operations: Relevant previous surgery/procedure and date(s) (History of tonsillectomy H/O colonoscopy S/P excision of lipoma [place] teeth extracted) Allergies: Allergies Allergy/AdvReac Type Severity Reaction Status Date / Time No Known Drug Allergies Allergy Unknown none Verified 04/06/23 08:00 Environmental Allergy Unknown unknown Uncoded 03/08/23 07:39 Review of Systems Sugical H&P ROS: Negative: Constitution, Cardiovascular, Respiratory and Gastrointestinal Exam Surgical H&P Exam: Normal: Heart, Normal: Lungs, Normal: Extremities and Normal: Abdomen Plan Diagnosis/Plan: Unchanged I have reviewed the history and physical and performed a pertinent physical examination on my patient. No changes have occurred unless specified. Time Spent With Patient Time: Total time managing care of this patient today ____ minutes.
[2023-04-21 12:14] VITALS: BP 140/86; PULSE 80; RESP 16; TEMP 36.4; O2SAT 96
--- NOTE | 2023-04-21 12:57 | P.OP_ITS ---
Operative Note Operative Note Date of Service: 04/21/23 Narrative: COLONOSCOPY TILL CECUM Pre-op diagnosis: Colon cancer screening. Post-op diagnosis:? Diverticulosis, hemorrhoids Endoscopist:? Chris Stephen MD Anesthesia:?MAC Consent: Indications for the procedure and potential complications of bleeding, perforation, reaction to medications and missed diagnosis were discussed with the patient and informed consent was obtained. Instrument: Olympus CF H 190 L variable stiffness adult colonoscope Monitoring: Vital signs and clinical assessment, intermittent blood pressure monitoring, continuous EKG monitoring, Pulse oximetry and Carbon Dioxide monitoring were done throughout the procedure. Please see anesthesia flowsheet. Colon withdrawl time was 22 minutes. Procedure: The patient was placed in the left lateral decubitis position and pre-procedure medications were administered. After a digital rectal examination of the ano-rectum, the video colonoscope was inserted into the rectum and advanced through the colon to the cecum. The colonoscope was slowly withdrawn in a retrograde panoramic fashion and the colon mucosa was carefully examined including a retroflexed view of the rectum. Findings and interventions are described below. Procedure Difficulty: Colon was long and there was spasm and some loop formation Findings: Terminal Ileum: Not evaluated Cecum: Normal Ascending Colon: Normal Transverse Colon: Normal Descending Colon: Normal Sigmoid Colon: Moderate diverticulosis Rectum: Normal Ano-rectum: Moderate internal hemorrhoids Colon preparation: Good to fair despite copious irrigation. There was scattered undigested vegetable matter which could not be suctioned. [place] Bowel Preparation Scale Right colon; 1 Transverse colon: 2 Left colon; 1 (0 = Unprepared colon segment with mucosa not seen due to solid stool that cannot be cleared. 1 = Portion of mucosa of the colon segment seen, but other areas of the colon segment not well seen due to staining, residual stool and/or opaque liquid. 2 = Minor amount of residual staining, small fragments of stool and/or opaque liquid, but mucosa of colon segment seen well. 3 = Entire mucosa of colon segment seen well with no residual staining, small fragments of stool or opaque liquid) Impression and Post Procedure Diagnosis: Colonoscopy Findings: No polyps were detected Moderate diverticulosis seen in the sigmoid colon Moderate hemorrhoids on retroflexed exam. Prep was fair in some areas of the colon due to undigested vegetable matter which could not be suctioned (Pt admitted to taking rice and beans the day before colonoscopy) Plan: Pt has a FU appointment on 05/05/23 with Mady Mccauley NP Repeat Colonoscopy in 1-2 years due to sub-optimal prep (needs dulcolax 2 tablets daily x 5 days prior to next colonoscopy and an adult colonoscope for future colonoscopies). Above findings were reviewed with the patient.
[2023-04-21 13:41] VITALS: BP 150/67; PULSE 89; RESP 20; TEMP 36.6; O2SAT 94
[2023-04-21 13:56] VITALS: BP 136/83; PULSE 85; RESP 16; O2SAT 96
[2023-04-21 14:11] VITALS: BP 143/87; PULSE 80; RESP 16; TEMP 36.4; O2SAT 97
[2023-04-21 14:20] VITALS: BP 142/84; PULSE 79; RESP 16; TEMP 36.4; O2SAT 97
== END 2023-04-21 14:55 | disposition home or self-care (01) ==
PROVIDERS: PCP Nurse Practitioner Family; Visit Provider Internal Medicine Gastroenterology
PROC: 0DJD8ZZ Inspection of Lower Intestinal Tract, Via Natural or Artificial Opening Endoscopic (ICD-10-PCS; CPT 45378; principal; 2023-04-21 12:10)
DX: Z12.11 Encounter for screening for malignant neoplasm of colon (principal); K56.2 Volvulus; K57.30 Diverticulosis of large intestine without perforation or abscess without bleeding; K64.8 Other hemorrhoids; I10 Essential (primary) hypertension; J45.909 Unspecified asthma, uncomplicated; E66.9 Obesity, unspecified; Z68.43 Body mass index [BMI] 50.0-59.9, adult; Z79.899 Other long term (current) drug therapy
CPT/HCPCS: 45378; J2704

== ENCOUNTER → 2023-04-21 09:16 | Outpatient (BNV) | payer BC, SELFPAY | PROVIDERS: PCP Nurse Practitioner Family; Visit Provider Internal Medicine Gastroenterology | DX: Z12.11 Encounter for screening for malignant neoplasm of colon (principal); K57.90 Diverticulosis of intestine, part unspecified, without perforation or abscess without bleeding; K64.8 Other hemorrhoids | CPT/HCPCS: 45378 ==

== ENCOUNTER 2023-04-28 05:36 | Day surgery (SDC) | payer BC, SELFPAY ==
[2023-04-26 08:05] VITALS: BMI 51.1
--- NOTE | 2023-04-26 13:32 | P.CONAN_ITS ---
Documented by User: Madeleine Chaudhari NP 04/26/23 13:34 HPI - Anesthesia Eval Consult details Narrative: 48yo M for Right Knee Arthroscopy with partial Medial menisectomy PMFSH Active Problems Active Problems: All Active Problems (Updated 02/22/23 @ 08:07 by David Santo MD) Right knee pain (Acute) Snores (Acute) Asthma, stable (Acute) Pre-op examination (Acute) Screening for colon cancer (Acute) Chest pain (Acute) HTN (hypertension) (Acute) Elevated fasting glucose (Acute) Chest discomfort (Acute) Physical exam (Acute) Left shoulder strain (Acute) Right shoulder strain (Acute) Dermoid cyst of head (Acute) Lipoma of forehead (Acute) Morbid (severe) obesity due to excess calories (Acute) Past Medical History Medical History (Updated 04/26/23 @ 13:33 by Madeleine Chaudhari NP) Morbid (severe) obesity due to excess calories Migraine Snores Asthma, stable Hypertension Family History Family History Other Mental health disorder Family history of problems with anesthesia: No Surgical History Surgical History History of tonsillectomy H/O colonoscopy S/P excision of lipoma [place] teeth extracted History of Problems with Anesthesia: No Social History Social History Housing: House Patient Tobacco Use Status: Former Tobacco user Quit Date: 2019 Tobacco use type: Cigarette Years Smoked: 20 Smoked in Last 30 Days: No e-Cigarette/Vaping Use: Never Used Second Hand Smoke Exposure: No Use of substances other than those prescribed or required for medical reasons: No Are you DNR?: No Advance Directives: No Advance Directives Information Provided: Yes Current occupational status: employed Cognitive needs: No Hearing needs: No Vision needs: No Meds Allergies Allergy/AdvReac Type Severity Reaction Status Date / Time No Known Allergies Allergy Verified 04/28/23 06:10 Home Medications Medication Instructions Recorded Confirmed Last Taken Type acetaminophen 500 mg tablet 500 mg PO Q6H PRN Pain 01/19/21 04/28/23 Unknown History (Tylenol Extra Strength) ibuprofen 800 mg tablet 800 mg PO Q8H PRN Pain 12/06/22 04/28/23 02/27/23 History Exam Height,Weight and Vital Signs: Height 5 ft 7 in Weight 147.871 kg Assessment and Plan Assessment Anesthesia Assessment: Chart Reviewed Final Anesthetic Review Family History of Problems with Anesthesia: No History of Problems with Anesthesia: No Documented by User: Africa Gould MD 04/28/23 07:33 PMFSH Past Medical History Medical History (Updated 04/26/23 @ 13:33 by Madeleine Chaudhari NP) Morbid (severe) obesity due to excess calories Migraine Snores Asthma, stable Hypertension Family History Family History Other Mental health disorder Surgical History Surgical History History of tonsillectomy H/O colonoscopy S/P excision of lipoma [place] teeth extracted Social History Social History Housing: House Patient Tobacco Use Status: Former Tobacco user Quit Date: 2019 Tobacco use type: Cigarette Years Smoked: 20 Smoked in Last 30 Days: No e-Cigarette/Vaping Use: Never Used Second Hand Smoke Exposure: No Use of substances other than those prescribed or required for medical reasons: No Are you DNR?: No Advance Directives: No Advance Directives Information Provided: Yes Current occupational status: employed Cognitive needs: No Hearing needs: No Vision needs: No Meds Allergies Allergy/AdvReac Type Severity Reaction Status Date / Time No Known Allergies Allergy Verified 04/28/23 06:10 Home Medications Medication Instructions Recorded Confirmed Last Taken Type acetaminophen 500 mg tablet 500 mg PO Q6H PRN Pain 01/19/21 04/28/23 Unknown History (Tylenol Extra Strength) ibuprofen 800 mg tablet 800 mg PO Q8H PRN Pain 12/06/22 04/28/23 02/27/23 History Exam Airway Mallampati Class: III TM Dist: >3cm Neck ROM: Limited Heart: rrr Lungs: cta Assessment and Plan Assessment Anesthesia Assessment: Anesthesia Plan Discussed Final Anesthetic Review NPO: Yes ASA Class: III Final Preanesthetic Review: No Changes in Pt Med Stat, Meds/Allgs Chart R wesley, Consent Obtained/Reviewed and Anes Risks/Benef Reviewed Patient Risk: Intermediate Procedure Risk: Intermediate Anesthetic Plan Anesthetic Plan: GA Disposition: Standard PACU
[2023-04-28] VITALS (9 sets, daily range): BP systolic 108–193; BP diastolic 48–118; PULSE 65–81; RESP 12–18; TEMP 36.1–36.2; O2SAT 95–98; BMI 50.9
[2023-04-28] MEDS: Lactated Ringers 1,000 ML 100 ML IVCONT (07:00)
--- NOTE | 2023-04-28 07:38 | PC.NURSE ---
Patient hasn't taken Lisinopril for one month. States My PCP appointment got rescheduled and my refill has . Patient hypertensive at todays visit, 193/118, taken again 5 mins later at rest, 152/91. Dr. Gould made aware. No new orders. Okay to proceed with procedure.
--- NOTE | 2023-04-28 08:38 | PM.OP ---
Brief Operative Note Date of Service: 04/28/23 Pre-op diagnosis: Right knee medial meniscus tear, right knee lateral meniscus tear, right knee degenerative joint disease Post-op diagnosis: same Procedure: Right knee diagnostic arthroscopy with right knee arthroscopic partial medial and lateral meniscectomies, right knee arthroscopic chondroplasty of the undersurface of the patella as well as the medial femoral condyle Surgeon: David Santo MD Anesthesia: GLMA Was an Collar Padder Blindstitch used for this Procedure?: No Estimated blood loss (mL): 10 Pathology: none sent Condition: stable Disposition: PACU
--- NOTE | 2023-04-28 08:39 | W.PM.OPN ---
Operative Note Operative Note Date of Service: 04/28/23 Narrative: After the patient was identified as Kali rPadhan and his right knee was initialed by myself they were brought to the operating room where general anesthesia was induced by the anesthesiologist in routine fashion. The patient was given 3 g of IV Ancef for infection prophylaxis. A formal time-out was completed. The patient's right lower extremity was prepped and draped in sterile fashion. Marcaine with epinephrine was injected into the planned incision sites as well as their right knee joint. A # 11 scalpel blade was used to make an anterolateral portal 1 cm proximal to the joint line and 1 cm lateral to the patellar tendon. Blunt trocar technique was used into the suprapatellar pouch with the knee in extension. Diagnostic arthroscopy showed multiple bands of thickened plica which would be excised at the end of the procedure. There were no loose bodies or abnormalities found in either the medial or lateral gutters. There were diffuse grades 1 and 2 degenerative changes of the undersurface of the patella as well as grade 1 degenerative changes of the trochlear groove. The patient's knee was flexed to 45 degrees and a valgus force was placed upon it. The medial compartment was entered. An anteromedial portal was made 1 cm proximal to the joint line and 1 cm medial to the patellar tendon. Probing of the medial meniscus showed a radial tear of the anterior horn. A partial medial meniscectomy was performed using the arthroscopic shaver. Following the partial meniscectomy the remainder of the meniscus tissue was stable. There were diffuse grades 1 and 2 degenerative changes of the medial femoral condyle as well as diffuse grade 1 degenerative changes of the medial tibial plateau. The articular surface of the medial femoral condyle was made smooth using the arthroscopic shaver. The articular surface of the medial tibial plateau was already smooth so no chondroplasty was indicated. The patient's knee was then placed into a neutral position. There was no injury to the anterior cruciate ligament. The patient's knee was then placed into the figure of 4 position and the lateral compartment was entered. There were minimal degenerative changes of the lateral femoral condyle and lateral tibial plateau. There was a radial tear of the anterior horn of the lateral meniscus. A partial lateral meniscectomy was performed using the arthroscopic shaver. Following the partial meniscectomy the remainder of the meniscus tissue was stable. The patient's knee was once again brought into extension and the suprapatellar pouch was entered. The arthroscopic shaver and the ArthroCare Wand were used to excise the thickened bands of plica. The undersurface of the patella was then made smooth using the arthroscopic shaver. The articular surface of the trochlear groove was already smooth so no chondroplasty was indicated. The knee joint was irrigated and then drained. All arthroscopic instruments were removed. The 2 portals were closed with 3-0 nylon interrupted suture. The knee joint was injected with Marcaine. Dry sterile dressing and Alex bandages were placed over the patient's knee. The patient was awoken and extubated in the operating room. They were transferred to the recovery room in stable condition.
[2023-04-28] MEDS: cefTRIAXone sodium 1 GM in 0.9 % Sodium Chloride 50 ML IV (08:49)
--- NOTE | 2023-04-28 10:33 | PC.NURSE ---
patient returned from discharged unit with nuasea and vomiting. Dr. Beach ordered sl zofran. This rn administered as ordered awaiting results. No further vomiting at this time.
[2023-04-28] MEDS: Ondansetron ODT 4 MG TAB.RAPDIS TRANSLINGU (10:37)
== END 2023-04-28 10:57 | disposition home or self-care (01) ==
PROVIDERS: PCP Nurse Practitioner Family; Visit Provider Orthopaedic Surgery
PROC: (CPT 29870; principal; 2023-04-28 07:30)
DX: S83.241A Other tear of medial meniscus, current injury, right knee, initial encounter (principal); S83.281A Other tear of lateral meniscus, current injury, right knee, initial encounter; M17.11 Unilateral primary osteoarthritis, right knee; M67.51 Plica syndrome, right knee; M23.51 Chronic instability of knee, right knee; Y93.01 Activity, walking, marching and hiking; Y92.69 Other specified industrial and construction area as the place of occurrence of the external cause; Y99.8 Other external cause status; I10 Essential (primary) hypertension; J45.909 Unspecified asthma, uncomplicated; G43.909 Migraine, unspecified, not intractable, without status migrainosus; R06.83 Snoring; E66.01 Morbid (severe) obesity due to excess calories; Z68.43 Body mass index [BMI] 50.0-59.9, adult; Z79.1 Long term (current) use of non-steroidal anti-inflammatories (NSAID); Z79.899 Other long term (current) drug therapy; Z87.891 Personal history of nicotine dependence
CPT/HCPCS: 29880; 29876; J0131; J0171; J0690; J0696; J1100; J1885; J2250; J2405; J2795; J3010

== ENCOUNTER → 2023-04-28 05:36 | Outpatient (BNV) | payer BC, SELFPAY | PROVIDERS: PCP Nurse Practitioner Family; Visit Provider Orthopaedic Surgery | DX: S83.241A Other tear of medial meniscus, current injury, right knee, initial encounter (principal); S83.281A Other tear of lateral meniscus, current injury, right knee, initial encounter | CPT/HCPCS: 29880 ==

== ENCOUNTER 2023-05-05 09:46 | Outpatient (AMB) | payer BC, SELFPAY ==
--- NOTE | 2023-05-05 09:50 | MHC.OFFVIS ---
Intake Vital Signs 05/05/23 09:51 Height 5 ft 7 in Weight 297 lb 2.93 oz BMI 46.5 BP 142/81 H Blood Pressure Location Lt brachial Position Sitting Pulse 91 Intake Visit Reasons: S/p colon Intake Note: Patient in office today in follow up of colonoscopy on 04/21/23. CC: Patient reports doing well and denies having any GI symptoms or concerns today. [employer] Maker Required: No Accompanied by: Self / Same As Patient Allergies No Known Allergies Allergy (Verified 05/05/23 10:00) HPI S/p colon HPI Details Assessment & Plan (1) Pre-op examination: Code(s): Z01.818 - Encounter for other preprocedural examination Plan: He had a prior colonoscopy in his teen years for RB and roids. HE denies any bowel or upper GI problems. There are no prior problems with anesthesia or sedation. He has well controlled asthma and snores at night but not tested for WILL, no cardiac problems. No ID problems. There is no known FHX of crc or polyps. (2) Morbid (severe) obesity due to excess calories: Code(s): E66.01 - Morbid (severe) obesity due to excess calories (3) Asthma, stable: Code(s): J45.909 - Unspecified asthma, uncomplicated (4) Snores: Comment: ?WILL NOT TESTED Code(s): R06.83 - Snoring Orders: Orders Colonoscopy - GI U se Only Today Z01.818 - Encounte r for other prepro cedural examinatio n Medications: New peg 3350-electroly yasmeen 236-22.74-6.74 -5.86 gram (Golyt naila) until feca l effluent is rossy r; do not exceed a total volume of 2 ,000 mL 240 mL PO Q10M 1 day 4,000 mL 0RF Z12.11 - Encounter for screening for malignant neoplas m of colon COLONOSCOPY 04/21/23? Findings: Terminal Ileum: Not evaluated Cecum: Normal Ascending Colon: Normal Transverse Colon: Normal Descending Colon: Normal Sigmoid Colon: Moderate diverticulosis Rectum: Normal Ano-rectum: Moderate internal hemorrhoids Impression and Post Procedure Diagnosis: Colonoscopy Findings: No polyps were detected Moderate diverticulosis seen in the sigmoid colon Moderate hemorrhoids on retroflexed exam. Prep was fair in some areas of the colon due to undigested vegetable matter which could not be suctioned (Pt admitted to taking rice and beans the day before colonoscopy) Plan: Pt has a FU appointment on 05/05/23 with Mady Mccauley NP Repeat Colonoscopy in 1-2 years due to sub-optimal prep (needs dulcolax 2 tablets daily x 5 days prior to next colonoscopy and an adult colonoscope for future colonoscopies). TODAY'S VISIT He completed the prep but did not clear, so we will have to do a different prep with 2 bisacodyl x 5 days prior to the next scope. He is agreeable to a 2 year recall. The procedure was well tolerated. The results were explained and the patient is agreeable to the follow-up interval as stated. The bowel pattern has returned to normal. Education was provided to tell any 1st degree relatives about their findings to be sure that they are screened by age 45. Educated that they will be put on a recall list when it is time for their repeat scope but should they move out of state or away from the hospital they will need to remember along with their primary to repeat the procedure in a timely fashion to avoid any adverse complications. He has been eating better with more fiber and vegetables as his dtr is helping prepare food - with this he is losing weight which is intentional. He just had knee surgery which went well for him. [facility] Medical History Morbid (severe) obesity due to excess calories Migraine Snores Asthma, stable Hypertension Surgical History (Updated 05/05/23 @ 16:40 by SATURNINO Richard) History of tonsillectomy H/O colonoscopy S/P excision of lipoma [place] teeth extracted Family History Other Mental health disorder Social History (Reviewed 05/05/23 @ 09:57 by PRAVEEN Palma Housing: House Patient Tobacco Use Status: Former Tobacco user Quit Date: 2019 Tobacco use type: Cigarette Years Smoked: 20 e-Cigarette/Vaping Use: Never Used Second Hand Smoke Exposure: No Current occupational status: employed Cognitive needs: No Hearing needs: No Vision needs: No Review of Systems Const Denies fatigue, Denies fever(s), Denies night sweats, Denies poor appetite and Denies weight loss ENT Reports Normal hearing present, Denies dysphagia, Denies odynophagia, Denies throat swelling and Denies tongue swelling Card Reports no additional complaints Resp Reports no additional complaints GI Details: Denies abdominal pain, Denies melena, Denies bloating, Denies hematochezia, Denies constipation, Denies GI cramping, Denies dysphagia, Denies excessive flatus, Denies early satiety, Denies heartburn, Denies diarrhea, Denies nausea, Denies odynophagia, Denies vomiting and Denies hematemesis Skin/Breast Denies pruritus, Denies lesions, Denies rash and Denies jaundice Neuro Reports Normal hearing present and Denies Abnormal speech present Endo Denies fatigue Aller/Immun Denies throat swelling and Denies tongue swelling Physical Exam Vital Signs: Last Vital Signs Pulse 91 05/05/23 09:51 BP 142/81 H 05/05/23 09:51 BMI result Body Mass Index 46.5 Const General: cooperative, no acute distress, well developed and well groomed Nutritional Appearance: well nourished and obese morbidly obese Orientation/consciousness: oriented to person, oriented to place and oriented to time Limitations: No language barrier and ambulation with cane HEENT Head: Yes normocephalic and Yes atraumatic Eyes General: appearance normal, both eyes and all related structures Pupils: Equal, round and reactive pupils present Neck Neck: Yes normal visual inspection and Yes no lymphadenopathy Thyroid: Thyroid normal Resp Effort & Inspection: normal respiratory effort and able to speak in complete sentences Auscultation: clear to auscultation bilaterally Cardio Rate: regular rate Rhythm: regular rhythm Heart sounds: Normal, physiologic split S2 sound present Peripheral pulses: radial pulses present and posterior tibial pulses present GI Inspection: No distended, Yes Abdominal panniculus present and Yes obesity Palpation (GI): Soft to palpation, nontender, no guarding, not rigid and No hepatosplenomegaly present Percussion: Yes normal to percussion Auscultation: normal bowel sounds Rectal Exam - Male: Yes deferred Skin General skin exam: no rashes or lesions noted, turgor normal, skin not dry, no jaundice, No spider nevi and no striae Rashes: no rashes Nails: normal Neuro General: oriented to person, oriented to place and oriented to time Cranial nerves: Yes Equal, round and reactive pupils present and Yes Normal hearing present Speech: No Abnormal speech present Extrem General: Yes normal to inspection, No clubbing, No cyanosis and No edema Psych Appearance: grossly normal and well kempt Mental Status: mental status grossly normal Speech and movement: Normal speech and movement present Affect: normal affect Attitude: cooperative Thought process: Normal thought process present and not confabulating Thought content: Normal thought content present Insight: Fair insight present (Psych) Judgement: Fair judgement present (Psych) Assessment & Plan Assessment & Plan (1) H/O colonoscopy: Comment: 04/21/23 Dr. Stephen Code(s): Z98.890 - Other specified postprocedural states Plan He completed the prep but did not clear, so we will have to do a different prep with 2 bisacodyl x 5 days prior to the next scope. He is agreeable to a 2 year recall. The procedure was well tolerated. The results were explained and the patient is agreeable to the follow-up interval as stated. The bowel pattern has returned to normal. Education was provided to tell any 1st degree relatives about their findings to be sure that they are screened by age 45. Educated that they will be put on a recall list when it is time for their repeat scope but should they move out of state or away from the hospital they will need to remember along with their primary to repeat the procedure in a timely fashion to avoid any adverse complications. He has been eating better with more fiber and vegetables as his dtr is helping prepare food - with this he is losing weight which is intentional. He just had knee surgery which went well for him. Coding Level of Care Code Est Pt Level 3 (91344) Diagnoses H/O colonoscopy Z98.890
[2023-05-05 09:51] VITALS: BP 142/81; PULSE 91; BMI 46.5
== END 2023-05-05 10:08 | disposition home or self-care (01) ==
PROVIDERS: PCP Nurse Practitioner Family; Visit Provider Nurse Practitioner
DX: Z98.890 Other specified postprocedural states (principal)
CPT/HCPCS: 99213

== ENCOUNTER → 2023-05-05 09:46 | Outpatient (BNVA) | payer BC, SELFPAY | PROVIDERS: PCP Nurse Practitioner Family; Visit Provider Nurse Practitioner ==

== ENCOUNTER 2023-05-11 08:44 | Outpatient (AMB) | payer BC, SELFPAY ==
--- NOTE | 2023-05-11 06:20 | A.OFFVIS_ITS ---
Intake Vital Signs 05/11/23 09:23 Height 5 ft 7 in Weight 297 lb BMI 46.5 Intake Visit Reasons: PO-Rt Knee 04/28/23 Intake Note: Kali a 48 year old male presents today for a post operative right knee on 04/28/23 . Patient reports he is doing well, states his pain is brought on with prolong walking. He uses a cane for support. Allergies No Known Allergies Allergy (Verified 05/11/23 09:23) HPI PO-Rt Knee 04/28/23 HPI Details 48-year-old male who returns to the [facility] today for post-op right knee , 04/28/[address] Santo. He states he has mild discomfort as well as pain with prolonged walking. He uses a cane for support. He is doing well otherwise and has no other concerns today. [facility] Medical History (Updated 05/11/23 @ 09:32 by Ana Magaña PA-C) Morbid (severe) obesity due to excess calories Migraine Snores Asthma, stable Hypertension Surgical History History of tonsillectomy H/O colonoscopy S/P excision of lipoma [place] teeth extracted Family History Other Mental health disorder Social History Housing: House Patient Tobacco Use Status: Former Tobacco user Quit Date: 2019 Tobacco use type: Cigarette Years Smoked: 20 e-Cigarette/Vaping Use: Never Used Second Hand Smoke Exposure: No Current occupational status: employed Cognitive needs: No Hearing needs: No Vision needs: No Review of Systems Const All systems reviewed & are unremarkable except as noted in HPI and below Physical Exam Vital Signs: BMI result Body Mass Index 46.5 Extrem Other: Right knee: Incision clean, dry and intact. No erythema or drainage. ROM is 0-95 degrees. Calf supple, nontender. NVI. Results Reviewed Results Reviewed: Brief Operative Note Date of Service: 04/28/23 Pre-op diagnosis: Right knee medial meniscus tear, right knee lateral meniscus tear, right knee degenerative joint disease Post-op diagnosis: same Procedure: Right knee diagnostic arthroscopy with right knee arthroscopic partial medial and lateral meniscectomies, right knee arthroscopic chondroplasty of the undersurface of the patella as well as the medial femoral condyle Surgeon: David Santo MD Assessment & Plan Assessment & Plan (1) Tear of meniscus of right knee as current injury: Code(s): S83.206A - Unspecified tear of unspecified meniscus, current injury, right knee, initial encounter (2) Osteoarthritis of right knee: Code(s): M17.11 - Unilateral primary osteoarthritis, right knee Plan Sutures removed today, steri strips applied. He will begin a course of physical therapy to work on gait training, ROM and strengthening. He will remain out of work till he see me back in [address] Santo, sooner if needed. Orders: Orders PT Evaluation and Treatment Today M17.11 - Unilateral primary osteoarthritis, right knee, S83.206A - Unspecified tear of unspecified meniscus, current injury, right knee, initial encounter Patient Instructions: Scribed for Ana Magaña PA-C, by Vickey Recinos medical office asst, on 05/11/2023 at 9:30 AM EST. I, Ana Magaña PA-C, have personally reviewed and agree with the information entered by the scribe. Coding Level of Care Code Global (50280) Diagnoses Tear of meniscus of right knee as current injury S83.206A Osteoarthritis of right knee M17.11
[2023-05-11 09:23] VITALS: BMI 46.5
== END 2023-05-11 09:52 | disposition home or self-care (01) ==
PROVIDERS: PCP Nurse Practitioner Family; Visit Provider Physician Assistant
DX: S83.206A Unspecified tear of unspecified meniscus, current injury, right knee, initial encounter (principal); M17.11 Unilateral primary osteoarthritis, right knee
CPT/HCPCS: 99024

== ENCOUNTER → 2023-05-11 08:44 | Outpatient (BNVA) | payer BC, SELFPAY | PROVIDERS: PCP Nurse Practitioner Family; Visit Provider Physician Assistant ==

== ENCOUNTER 2023-06-08 07:42 | Outpatient (AMB) | payer BC, SELFPAY ==
--- NOTE | 2023-06-08 07:46 | A.OFFVIS_ITS ---
Intake Intake Visit Reasons: PO-Rt knee 04/28/23 Intake Note: Kali is a 48 year old male who presents for his post operative appointment s/p Right knee 04/28/2023. Patient reports he is doing good and has no problems or concerns at this time. He states that he has lost 50 lb over the last 6 months with his exercise program and diet. Allergies No Known Allergies Allergy (Verified 06/08/23 07:47) Medication List - Last Reconciled 06/08/23 by David Santo MD acetaminophen (Tylenol Extra Strength) 500 mg PO Q6H PRN ibuprofen 800 mg PO Q8H PRN lisinopril 10 mg PO DAILY 90 days oxycodone 5 mg PO Q6H PRN PFSH Medical History Morbid (severe) obesity due to excess calories Migraine Snores Asthma, stable Hypertension Surgical History History of tonsillectomy H/O colonoscopy S/P excision of lipoma [place] teeth extracted Family History Other Mental health disorder Social History Housing: House Patient Tobacco Use Status: Former Tobacco user Quit Date: 2019 Tobacco use type: Cigarette Years Smoked: 20 e-Cigarette/Vaping Use: Never Used Second Hand Smoke Exposure: No Current occupational status: employed Cognitive needs: No Hearing needs: No Vision needs: No Physical Exam Extrem Other: Right knee examination shows that the surgical incisions are well healed, no erythema, no crepitus with range motion, minimal discomfort with range of motion Assessment & Plan Assessment & Plan (1) Right knee pain: Code(s): M25.561 - Pain in right knee Plan Mr. Pradhan continues to do very well after undergoing right knee arthroscopic surgery on 04/28/2023. He will continue with his exercise and diet programs. He will contact me prior to his follow-up appointment in 2-3 months should any questions or concerns arise. Feel free to call me at any time should questions regarding his orthopedic management arise. Coding Level of Care Code Global (04731) Diagnoses Right knee pain M25.561
== END 2023-06-08 07:58 | disposition home or self-care (01) ==
PROVIDERS: PCP Nurse Practitioner Family; Visit Provider Orthopaedic Surgery
DX: M25.561 Pain in right knee (principal)
CPT/HCPCS: 99024

== ENCOUNTER → 2023-06-08 07:42 | Outpatient (BNVA) | payer BC, SELFPAY | PROVIDERS: PCP Nurse Practitioner Family; Visit Provider Orthopaedic Surgery ==

== ENCOUNTER 2023-06-09 07:00 | Outpatient (RCR) | payer BC, SELFPAY ==
--- NOTE | 2023-05-18 10:35 | MHC.PT.EP ---
[facility] [place] Office [place] Office [place] Office [address] Arian Belle [address] [phone] F: [phone] F: [phone] F: [phone] F: [phone] Physical Therapy Plan of Care Date of Evaluation: 05/18/23 Date of Surgery: 04/28/2023 Diagnosis: meniscus tear, R Assessment: Patient is a 48 year old male presenting to PT s/p R menisectomy on 04/28/2023. He presents today with impairments in pain, ROM, hip strength, knee strength. 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 Clinical presentation today is most consistent with signs and sx associated with s/p R menisecomty on 04/28/2023 and pt will benefit from skilled PT 2 week x 4 weeks to address the following problems and impairments noted upon evaluation: pain, ROM, hip strength, knee strength. These problems limit the patient with the following functional activities: ambulating, stair negotiation, ADLs, work. The prescribed treatment plan of care is medically necessary. Co-morbidities of HTN were identified and taken into considerations of plan of care. Pt was educated on HEP, role of PT, prognosis, POC. Frequency and Duration: The patient will be seen 2 x week x 4 weeks Short Term Goals: Pt will demonstrate symmetrical ROM in 2 weeks. Pt will demonstrate 5/5 knee MMT strength in 2 weeks. Pt will demonstrate improved hip MMT strength by 1/3 grade in 2 weeks for improved lumbopelvic stability. Nursing Home Goals: Pt will demonstrate improved LEFI score by 9 points in 4 weeks for improved functional mobility. Pt will demonstrate ability to ambulate with normal mechanics and no pain in 4 weeks for return to PLOF. Pt will demonstrate ability to negotiate stairs with min to no pain in 4 weeks for return to PLOF. Treatment Plan: Modalities to reduce pain, spasms and effusion. Manual therapy to restore motion and function. Therapeutic exercise to improve strength and flexibility. Neuromuscular re-education for posture and balance. Therapeutic activities to return to functional activities of daily living. Electronically signed by: Alena Lomeli, PT, DPT, ATC Please sign and return to therapist. Thank you for your referral.
--- NOTE | 2023-06-09 07:58 | MHC.PT.DC ---
[facility] [place] Office [place] Office [place] Office [address] Arian Belle [address] [phone] F: [phone] F: [phone] F: [phone] F: [phone] Physical Therapy Discharge Report Diagnosis: meniscus tear, R Date of Surgery: 04/28/2023 Date of Evaluation: 05/18/23 Date of Discharge: 06/09/23 Treatments to Date: 7 Cancellations to Date: 0 No Shows to Date: 0 Discharge Status: Achieved Goals Improved Function Independent with HEP Discharge Summary: 06/09/2023: Pt has made good progress since start of care. He is demonstrate improved ROM and strength at this time and having minimal to no pain. He is independent and compliant with his HEP and planning to return to work soon. At this time max benefits of PT have been provided and skilled PT is no longer indicated. Pt is in agreement with d/c today. He understands importance of continuing with his exercises to maintain all gains. Electronically signed by: Alena Lomeli, PT, DPT, ATC Please sign and return to therapist. Thank you for your referral.
== END 2023-06-09 07:58 | disposition home or self-care (01) ==
LOC: HO.PTCHIC 07:00
PROVIDERS: PCP Nurse Practitioner Family; Visit Provider Physician Assistant
DX: S83.206D Unspecified tear of unspecified meniscus, current injury, right knee, subsequent encounter (principal); M17.11 Unilateral primary osteoarthritis, right knee
CPT/HCPCS: 97110; 97112; 97161; 97530

== ENCOUNTER 2023-06-20 08:33 | Outpatient (AMB) | payer BC, SELFPAY ==
--- NOTE | 2023-06-20 08:37 | MHC.PC.OV ---
Vital Signs 06/20/23 08:39 06/20/23 09:22 Height 5 ft 7 in Weight 322 lb BMI 50.4 BP 134/90 H 130/84 Blood Pressure Location Rt brachial Position Sitting Pulse 72 Pulse Source Pulse Oximeter Pulse Oximetry (%) 98 Oxygen Delivery Method Room Air Intake Visit Reasons: Annual PE/Last PE 2021 Intake Note: Patient here for physical exam, pt would like to discuss bumps on lower back of head that have been present for a couple of months. Allergies No Known Allergies Allergy (Verified 06/20/23 08:40) Tobacco use date assessed: 06/20/23 Dental Screening Dental Screen Date: 06/20/23 Did you have a dental visit in the last 12 months?: No Did you have a dental problem in the last 6 months where you did not have access to dental care?: No Was dental information given to patient?: Patient has dentist HPI Annual PE/Last PE 2021 HPI Details Pt is here for a PE. Will order labs. Colon screen is up to date. [facility] Medical History Morbid (severe) obesity due to excess calories Migraine Snores Asthma, stable Hypertension Surgical History History of tonsillectomy H/O colonoscopy S/P excision of lipoma [place] teeth extracted Family History Other Mental health disorder Social History Housing: House Patient Tobacco Use Status: Former Tobacco user Quit Date: 2019 Tobacco use type: Cigarette Years Smoked: 20 e-Cigarette/Vaping Use: Never Used Second Hand Smoke Exposure: No Current occupational status: employed Cognitive needs: No Hearing needs: No Vision needs: No Questionnaire Thrive Questionnaire Date Thrive assessed: 01/21/21 AUDIT C Alcohol Use Questionnaire (AUDIT-C) 1. How often do you have a drink containing alcohol?: Never 3. How often do you have six or more drinks on one occasion?: Never Total Score: 0 SANDY-7 AMB Questionnaire SANDY-7 Date SANDY - 7 assessed: 01/21/21 Source: Developed by Drs. Tom Baptiste, Vivian Jaimes, Juaquin Meneses and colleagues, with an educational carmelo from [employer]. Review of Systems Const Denies chills and Denies fever(s) Eyes Denies blurry vision ENT Denies vertigo, Denies dizziness and Denies sore throat Card Denies chest pain at rest, Denies chest pain with activity, Denies diaphoresis, Denies dyspnea and Denies dyspnea on exertion Resp Denies cough, Denies dyspnea, Denies dyspnea on exertion and Denies wheezing GI Denies abdominal pain, Denies melena, Denies hematochezia, Denies constipation, Denies diarrhea and Denies loose stools Denies hematuria Musc Denies numbness and Denies tingling Skin/Breast Denies lesions Neuro Denies vertigo, Denies dizziness, Denies numbness and Denies tingling Psych Denies anxiety, Denies depression, Denies homicidal ideation, Denies suicidal ideation and Denies other (substance abuse) Aller/Immun Denies wheezing Physical exam (Primary Care) Vital Signs: Last Vital Signs Pulse 72 06/20/23 08:39 BP 134/90 H 06/20/23 08:39 Pulse Ox 98 06/20/23 08:39 Oxygen Delivery Method Room Air 06/20/23 08:39 BMI result Body Mass Index 50.4 Tobacco/Smoking Status: Tobacco use Status Tobacco use date assessed 06/20/23 06/20/23 08:42 Patient Tobacco Use Status Former Tobacco user 06/20/23 08:42 Tobacco use type Cigarette 06/20/23 08:42 e-Cigarette/Vaping Use Never Used 06/20/23 08:42 Thrive Assessment: Date of Thrive Assessment Date Thrive assessed 01/21/21 06/20/23 08:42 Const General: cooperative Nutritional Appearance: obese morbidly obese Orientation/consciousness: patient oriented x3 HENMT Head: Yes normal to inspection, Yes normocephalic and Yes atraumatic Ears: TM's normal bilaterally Eyes General: appearance normal, both eyes and all related structures Alignment and Position: alignment normal and position normal Neck Other: ? enlarged thyroid Neck: Yes normal visual inspection and Yes no lymphadenopathy Resp Effort & Inspection: normal respiratory effort Auscultation: clear to auscultation bilaterally Cardio Rate: regular rate Rhythm: regular rhythm Heart sounds: S1 normal heart sound present, S2 normal heart sound present and no murmurs GI Palpation (GI): Soft to palpation and nontender Auscultation: normal bowel sounds Male General Exam: Yes normal external exam Penis: normal penis Scrotum: scrotum normal, testes descended bilaterally and no inguinal hernias Testes: no testicular mass Skin Other: acanthosis nigricans especially to neck, occipital scalp with ? foliculitis, small pustules Rashes: no rashes Neuro General: patient oriented x3, moves all extremities, no focal motor deficits and deep tendon reflexes 2+ bilaterally Romberg Test: Negative Psych Appearance: grossly normal Mental Status: mental status grossly normal Speech and movement: Normal speech and movement present Affect: normal affect Attitude: cooperative Thought process: Normal thought process present Thought content: Normal thought content present Insight: Good insight present (Psych) Judgement: Good judgement present (Psych) Assessment and Plan Assessment & Plan (1) Physical exam: Code(s): Z00.00 - Encounter for general adult medical examination without abnormal findings Plan: Labs ordered (2) Enlarged thyroid: Code(s): E04.9 - Nontoxic goiter, unspecified Plan: US ordered (3) Follicular acne: Code(s): L70.8 - Other acne Plan: Clindamycin sent Plan The patient agreed to the use of a medical records receptionist for this encounter. Scribed for ODALIS Cota by Sandra Gonzalez medical records receptionist, on 06/20/2023 at 09:05 EST. Orders: Orders Comprehensive [place]. Panel Fast Today Z00.00 - Encounter for general adult medical examination without abnormal findings TSH reflex Free T4 Today Z00.00 - Encounter for general adult medical examination without abnormal findings US thyroid Today E04.9 - Nontoxic goiter, unspecified Complete Blood Count Auto Diff Today Z00.00 - Encounter for general adult medical examination without abnormal findings UA CC w/rflx Micro + Cult Today Z00.00 - Encounter for general adult medical examination without abnormal findings Lipid Panel Today Z00.00 - Encounter for general adult medical examination without abnormal findings Medications: New clindamycin phosphate 1% 1 appl topical BEDTIME 20 days 60 grams 0RF Coding Level of Care Code Est Pt Prev Care 40-64y(86851) Diagnoses Physical exam Z00.00 Enlarged thyroid E04.9 Follicular acne L70.8
[2023-06-20 08:39] VITALS: BP 134/90; PULSE 72; O2SAT 98; BMI 50.4
[2023-06-20 09:22] VITALS: BP 130/84
== END 2023-06-20 09:18 | disposition home or self-care (01) ==
PROVIDERS: PCP Nurse Practitioner Family; Visit Provider Nurse Practitioner Family
DX: Z00.00 Encounter for general adult medical examination without abnormal findings (principal); E04.9 Nontoxic goiter, unspecified; L70.8 Other acne
CPT/HCPCS: 99396

== ENCOUNTER 2023-06-20 09:18 | Outpatient (REF) | payer BC, SELFPAY ==
[2023-06-20 10:24] LABS: MANUAL DIFF FLAG NO
[2023-06-20 10:41] LABS: Basophils Percent Auto 0.7 % (0-2); Eosinophils Absolute Auto 0.1 X10*3/uL (0.0-0.4); Eosinophils Percent Auto 2.6 % (0-4); Hematocrit 42.8 % (42.0-52.0); Hemoglobin 14.4 g/dl (14.0-18.0); Imm Gran Abs Auto 0.01 X10*3/uL (0.00-0.03); Imm Gran Pct Auto 0.2 % (0.0-0.4); Lymphocytes Absolute Auto 2.1 X10*3/uL (1.2-4.9); Lymphocytes Percent Auto 39.1 % (20-40); Mean Corpuscular HGB Conc 33.6 g/dl (31.0-36.0); Mean Corpuscular Hemoglobin 28.6 pg (27.0-33.0); Mean Corpuscular Volume 85.1 fL (80.0-98.0); Mean Platelet Volume 10.2 fL (9.4-12.4); Monocytes Absolute Auto 0.3 X10*3/uL (0.1-1.2); Monocytes Percent Auto 5.6 % (2-11); Neutrophils Absolute Auto 2.8 x10*3/uL (2.0-8.3); Neutrophils Percent Auto 51.8 % (45-73); Platelet Count 205 X10*3/uL (160-400); Red Blood Count 5.03 X10*6/uL (4.60-5.80); Red Cell Distribution Width 12.9 % (11.0-16.0); White Blood Count 5.4 X10*3/uL (4.8-10.8)
[2023-06-20 10:43] LABS: Appearance Urine Clear; Color Urine Yellow; Glucose Urine UA >=1000 mg/dL (Negative); Leukocyte Esterase Urine Negative (Negative); Nitrite Urine Negative (Negative); PH 5.5 (5.0-9.0); Specific Gravity - Urine >= 1.030 (1.005-1.025); UMIC TRIGGER UACC YES; Urine Blood Negative (Negative); Urine Ketones Negative (Negative); Urine Protein 30 (1+) mg/dL (Neg-Trace)
[2023-06-20 10:50] LABS: Bacteria Urine None Seen (None Seen); Hyaline Casts Urine 0-2 /LPF (0-2); RBC Urine 0-2 /HPF (0-2); Squamous Epithelial Cell Urine 0-2 /HPF (0-2); WBC Urine 0-5 /HPF (0-5)
[2023-06-20 11:29] LABS: Alanine Aminotransferase 37 U/L (0-40); Albumin Level 4.2 g/dL (3.5-5.0); Alkaline Phosphatase 78 U/L (39-117); Anion Gap 14 (12-20); Aspartate Amino Transferase 16 U/L (5-37); Bilirubin Total 0.3 mg/dL (0.0-1.0); Blood Urea Nitrogen 16 mg/dL (9-16); Calcium 8.9 mg/dL (8.4-10.2); Carbon Dioxide 24 mmol/L (22-29); Chloride 104 mmol/L (96-108); Cholesterol 190 mg/dL (<200); Estimated Glomerular Filt Rate > 60; Glucose Fasting 287 mg/dL (60-99); HDL Cholesterol 37 mg/dL (>40); LDL Cholesterol Calculated 131 mg/dL (<100); Sodium 138 mmol/L (135-145); Total Protein 6.9 g/dL (6.5-8.0); Triglycerides 114 mg/dL (<150)
== END 2023-06-20 09:19 | disposition home or self-care (01) ==
LOC: HO.HMGCLDS 09:18
PROVIDERS: PCP Nurse Practitioner Family; Visit Provider Nurse Practitioner Family
DX: Z00.00 Encounter for general adult medical examination without abnormal findings (principal)
CPT/HCPCS: 36415; 80053; 80061; 81001; 84443; 85025

== ENCOUNTER 2023-07-03 11:19 | Outpatient (REF) | payer BC, SELFPAY ==
--- NOTE | ~2023-07-03 | US_ITS ---
EXAMINATION: US THYROID CLINICAL INFORMATION: Nontoxic goiter, unspecified. COMPARISON: None available. TECHNIQUE: Linear transducer phillips-scale and color Doppler examination with attention to the region of the thyroid. FINDINGS: SIZE: Measurements of the thyroid lobes and nodules are given in sagittal, anteroposterior and transverse dimensions respectively. Right Thyroid Lobe: 4.3 x 2.2 x 1.5 cm, volume 7.6 mL. Parenchyma: The gland echotexture is heterogeneous. Thyroid vascularity is normal. Left Thyroid Lobe: 5.0 x 1.9 x 1.7 cm, volume 8.4 mL. Parenchyma: The gland echotexture is heterogeneous. Thyroid vascularity is normal. Isthmus: 0.50 cm in maximum AP dimension. Multiple subcentimeter cystic TR 1 benign-appearing nodules. No suspicious thyroid nodule identified. NODES: No lymphadenopathy is seen in the tissue surrounding the thyroid gland. US/US thyroid IMPRESSION: Multiple subcentimeter cystic TR 1 benign-appearing nodules. No suspicious thyroid nodule identified. There is no indication for followup imaging. ACR TI-RADS RECOMMENDATION REFERENCE: Ultrasound-guided fine-needle aspiration, followup ultrasound, no further follow up. * TR1 (0 point) and TR2 (2 points): No FNA or follow up. * TR3 (3 points): FNA if more than or equal to 2.5 cm in maximum dimension, followup ultrasound in 1, 3 and 5 years if 1.5 to 2.4 cm in maximum dimension. * TR4 (4-6 points): FNA if more than or equal to 1.5 cm in maximum dimension, followup ultrasound in 1, 2, 3 and 5 years if 1 to 1.4 cm in maximum dimension. * TR5 (more than or equal to 7 points): FNA if more than or equal to 1 cm in maximum dimension, followup ultrasound every year for 5 years if 0.5 to 0.9 cm in maximum dimension. * TR3, TR4 or TR5 nodules that are below the size threshold for followup receive no follow up.
== END 2023-07-03 11:20 | disposition home or self-care (01) ==
LOC: HO.HMGCX 11:19
PROVIDERS: PCP Nurse Practitioner Family; Visit Provider Nurse Practitioner Family
DX: E04.9 Nontoxic goiter, unspecified (principal)
CPT/HCPCS: 76536

== ENCOUNTER 2023-08-17 08:18 | Outpatient (AMB) | payer BC, SELFPAY ==
--- NOTE | 2023-08-17 08:22 | MHC.OFFVIS ---
Vital Signs 08/17/23 08:23 Height 5 ft 7 in Intake Visit Reasons: Bilateral knee pain Intake Note: Mr. Pradhan is a 48-year-old male who presents with complaints of intermittent discomfort and giving way in both of his knees. He did undergo right knee arthroscopic surgery on 04/28/2023. The patient states that he got fairly good relief from that procedure. 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 The patient denies any fevers or chills. He has done physical therapy exercises which did not help with the feeling of instability. He wishes to hold off on surgery if at all possible. Has tried Tylenol and anti-inflammatory medicines which gave him fairly good relief of his discomfort. Allergies No Known Allergies Allergy (Verified 08/17/23 08:24) Medication List - Last Reconciled 08/17/23 by David Santo MD acetaminophen (Tylenol Extra Strength) 500 mg PO Q6H PRN atorvastatin 10 mg PO BEDTIME blood sugar diagnostic (OneTouch Verio test strips) Test blood sugar once a day blood-glucose meter (2NDNATURETouch Verio Flex Meter) As directed clindamycin phosphate 1% 1 appl topical BEDTIME 20 days glipizide 5 mg PO BID 90 days ibuprofen 800 mg PO Q8H PRN lancets (OneTouch Delica Plus Lancet) Test blood sugar once a day lisinopril 10 mg PO DAILY 90 days COUNT INCLUDES THE [facility] Medical History Morbid (severe) obesity due to excess calories Migraine Snores Asthma, stable Hypertension Surgical History History of tonsillectomy H/O colonoscopy S/P excision of lipoma [place] teeth extracted Family History Other Mental health disorder Social History Housing: House Patient Tobacco Use Status: Former Tobacco user Tobacco use type: Cigarette Years Smoked: 20 e-Cigarette/Vaping Use: Never Used Second Hand Smoke Exposure: No Current occupational status: employed Cognitive needs: No Hearing needs: No Vision needs: No Physical Exam Const Other: Well-nourished well-developed very friendly male awake alert and oriented x3 in no acute distress Extrem Other: Bilateral lower extremity examination shows good capillary refill, no skin lesions noted, normal sensation light touch Bilateral knee examination shows minimal effusions, minimal crepitus with range of motion, mild pain with range of motion, his patellae track well Assessment & Plan Assessment & Plan (1) Pain in both knees: Code(s): M25.561 - Pain in right knee; M25.562 - Pain in left knee Plan Mr. Pradhan presents with bilateral knee symptoms of instability most likely due to early degenerative joint disease. I had a lengthy discussion with the patient regarding the treatment options. He wishes to hold off on further surgery for as long as possible. I agree with this plan. I did have the patient fitted for bilateral knee braces. I do feel that the knee braces are a medical necessity to help with his feelings of instability and prevent further injury. The patient will follow up with me on an as-needed basis should his symptoms not plateau at an unacceptable level over the next few months. Feel free to call me at any time should questions regarding orthopedic management arise. I spent 22 minutes in reviewing the patient's records and imaging studies, seeing the patient and documenting in the medical record. Coding Level of Care Code Est Pt Level 3 (74084) Diagnoses Pain in both knees M25.561; M25.562
== END 2023-08-17 08:52 | disposition home or self-care (01) ==
LOC: HO.HOS 08:18
PROVIDERS: PCP Nurse Practitioner Family; Visit Provider Orthopaedic Surgery
DX: M25.561 Pain in right knee (principal); M25.562 Pain in left knee
CPT/HCPCS: 99213

== ENCOUNTER → 2023-08-17 08:18 | Outpatient (BNVA) | payer BC, SELFPAY | PROVIDERS: PCP Nurse Practitioner Family; Visit Provider Orthopaedic Surgery ==

== ENCOUNTER 2023-09-11 07:50 | Outpatient (AMB) | payer BC, SELFPAY ==
--- NOTE | 2023-09-11 08:06 | MHC.OFFVIS ---
Vital Signs 09/11/23 08:07 Height 5 ft 7 in Weight 333 lb 1.895 oz BMI 52.2 BP 150/88 H Blood Pressure Location Lt brachial Position Sitting Pulse 81 Pulse Source Pulse Oximeter Intake Visit Reasons: Type 2 DM-confirmed Intake Note: New patient presents today for D2MT. Last Diabetic Eye exam: 2021 Last Podiatry Visit: Doesn't have one Random Glucose: 181 mg/dl HgA1c: 11% 07/13/23. Forensic Social Worker Required: No Accompanied by: Self / Same As Patient Allergies No Known Allergies Allergy (Verified 09/11/23 08:12) Medication List - Last Reconciled 09/11/23 by Ryann Peña PA-C acetaminophen (Tylenol Extra Strength) 500 mg PO Q6H PRN aspirin 81 mg PO DAILY atorvastatin 10 mg PO BEDTIME blood sugar diagnostic (OneTouch Verio test strips) Test blood sugar once a day blood-glucose meter (OneTouch Verio Flex Meter) As directed cholecalciferol (vitamin D3) 50 mcg PO DAILY clindamycin phosphate 1% 1 appl topical BEDTIME 20 days glipizide 5 mg PO BID 90 days ibuprofen 800 mg PO Q8H PRN lancets (OneTouch Delica Plus Lancet) Test blood sugar once a day lisinopril 10 mg PO DAILY 90 days tirzepatide (Mounjaro) 2.5 mg (0.5 mL) subcut QWEEK 4 weeks HPI HPI Type 2 DM-confirmed: Details: Patient is a 48-year-old male who presents today for a diabetic follow-up. He has a significant past medical history of hypertension, poorly controlled type 2 diabetes, and hyperlipidemia. Endo: He was recently diagnosed with diabetes a few months ago. His last A1c was 11. He is currently on glipizide 5 mg twice a day. He states that he tolerates this well. His PCP sent him in a prescription for mounjaro about a week ago and he states that he just picked this up but plans to start it today. -He has been checking his blood sugars 1-2 x a day. He states this morning it was 220. No hypoglycemic events. He states that he does notice when he eats sugary things he gets tired. He has been really trying to lose weight and walk more. He states that his daughter has been following with a marketing administrator and that they are on the same sort of program. He is trying to now increase his protein intake and make sure he walks about a miles a day. -he is on an APOLINAR-inhibitor and statin. -He states most people in his family have t2dm. 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 He states in the past they clipped the toenails off but they grew back with the same deformity. He has not used anything for this. -he is referred for an eye exam and states that he expects to have an appointment soon. Denies any known vision changes. CV: Blood pressure today in the office is a 150/88. He is on lisinopril 10 mg. He states he was nervous today and most of his bps at home have been normal. Cholesterol is controlled Lipitor 10 mg. [facility] Medical History Morbid (severe) obesity due to excess calories Migraine Snores Asthma, stable Hypertension Surgical History History of tonsillectomy H/O colonoscopy S/P excision of lipoma [place] teeth extracted Family History Other Mental health disorder Social History Housing: House Patient Tobacco Use Status: Former Tobacco user Tobacco use type: Cigarette Years Smoked: 20 e-Cigarette/Vaping Use: Never Used Second Hand Smoke Exposure: No Current occupational status: employed Cognitive needs: No Hearing needs: No Vision needs: No Physical Exam Vital Signs: Last Vital Signs Pulse 81 09/11/23 08:07 BP 150/88 H 09/11/23 08:07 BMI result Body Mass Index 52.2 Const Orientation/consciousness: patient oriented x3 Neck Neck: Yes no lymphadenopathy Thyroid: Thyroid normal Carotids: no bruits Resp Auscultation: clear to auscultation bilaterally Cardio Rate: regular rate Rhythm: regular rhythm Heart sounds: S1 normal heart sound present and S2 normal heart sound present Peripheral pulses: dorsalis pedis present Skin Nails: yellow and thickened Neuro General: patient oriented x3, gait normal and no focal motor deficits Extrem Other: Monofilament sensation intact bilaterally. Vibratory sensation intact bilaterally. Skin intact. General: Yes normal to inspection Results Reviewed Results Reviewed: Laboratory Tests 06/20/23 07/13/23 09:41 14:29 Sodium 138 Potassium 4.0 Chloride 104 Carbon Dioxide 24 Anion Gap 14 BUN 16 Creatinine 0.74 Hgb A1c (Clinic) 11.0 H AST 16 ALT 37 Alkaline Phosphatase 78 Triglycerides 114 Cholesterol 190 LDL Cholesterol, Calc 131 H HDL Cholesterol 37 L TSH 1.50 Assessment & Plan Assessment & Plan (1) Uncontrolled type 2 diabetes mellitus with hyperglycemia: Code(s): E11.65 - Type 2 diabetes mellitus with hyperglycemia Category: Medical Plan: I will add metformin. We discussed risks and benefits and adverse effects of this medication. He is starting mounjaro today after this appointment. We discussed risks and benefits and adverse effects including nausea, vomiting and increased risk of pancreatitis. We discussed increased risk of thyroid malignancy as well. Advised patient to start this medication and take the metformin a few days later in case he develops side effects. We discussed that the metformin may cause diarrhea. Advised to take with food. Continue with the glipizide. I spent greater than 75 min counseling him on the pathophysiology of diabetes, diet changes and exercise. We discussed the importance of eye exams and regularly checking the feet. We discussed complications associated with diabetes. Signs and symptoms of hyper and hypoglycemia that require emergent medical treatment were reviewed. He has testing supplies at home. I have referred him to diabetic Education. (2) HTN (hypertension): Code(s): I10 - Essential (primary) hypertension Category: Medical Qualifiers: Hypertension type: primary hypertension Qualified Code(s): I10 - Essential (primary) hypertension Plan: Discussed that if his blood pressure is still elevated at our next visit I will increase his lisinopril. He will follow up in 1 month and I will recheck his blood pressure at that appointment. -he does endorse snoring a lot it is listed in his problem list. We did discuss the possibilities of obstructive sleep apnea and he is following up with his PCP in regards to this. (3) Hyperlipidemia: Code(s): E78.5 - Hyperlipidemia, unspecified Category: Medical Qualifiers: Hyperlipidemia type: pure hypercholesterolemia Qualified Code(s): E78.00 - Pure hypercholesterolemia, unspecified Plan: Continue Lipitor. Working on diet changes. Last LFTs were WNL. We discussed that his cholesterol could be a little bit better. (4) Onychomycosis: Code(s): B35.1 - Tinea unguium Category: Medical Plan: Start Penlac solution. Referral to podiatry. Orders: Orders Hemoglobin A1c Today E11.65 - Type 2 diabetes mellitus with hyperglycemia, E78.5 - Hyperlipidemia, unspecified, I10 - Essential (primary) hypertension Basic Metabolic Panel Today E11.65 - Type 2 diabetes mellitus with hyperglycemia, E78.5 - Hyperlipidemia, unspecified, I10 - Essential (primary) hypertension Microalbumin, Random (w Creat) Today E11.65 - Type 2 diabetes mellitus with hyperglycemia, E78.5 - Hyperlipidemia, unspecified, I10 - Essential (primary) hypertension Referrals Diabetes Education Referral E11.65 - Type 2 diabetes mellitus with hyperglycemia Podiatry Referral B35.1 - Tinea unguium, E11.65 - Type 2 diabetes mellitus with hyperglycemia Medications: New metformin ER 500 mg PO DAILY 90 tabs 0RF ciclopirox 8% 1 appl topical DAILY 4 weeks 6.6 mL 3RF Coding Level of Care Code New Pt Level 5 (59779) Complex EM visit Add On G2211 Diagnoses Uncontrolled type 2 diabetes mellitus with hyperglycemia E11.65 Primary hypertension I10 Hypertension type: primary hypertension Pure hypercholesterolemia E78.00 Hyperlipidemia type: pure hypercholesterolemia Onychomycosis B35.1 Time Spent (min) 80
[2023-09-11 08:07] VITALS: BP 150/88; PULSE 81; BMI 52.2
[2023-09-11 08:18] LABS: Glucose, Whole Blood 181 mg/dL (60-115)
== END 2023-09-11 08:51 | disposition home or self-care (01) ==
PROVIDERS: PCP Nurse Practitioner Family; Visit Provider Physician Assistant
DX: E11.65 Type 2 diabetes mellitus with hyperglycemia (principal); I10 Essential (primary) hypertension; E78.00 Pure hypercholesterolemia, unspecified; B35.1 Tinea unguium
CPT/HCPCS: 99205; 99417

== ENCOUNTER → 2023-09-11 07:50 | Outpatient (BNVA) | payer BC, SELFPAY | PROVIDERS: PCP Nurse Practitioner Family; Visit Provider Physician Assistant | DX: E11.65 Type 2 diabetes mellitus with hyperglycemia (principal); I10 Essential (primary) hypertension; E78.00 Pure hypercholesterolemia, unspecified; B35.1 Tinea unguium; Z79.899 Other long term (current) drug therapy | CPT/HCPCS: 82947 ==

== ENCOUNTER 2023-10-03 06:58 | Outpatient (AMB) | payer BC, SELFPAY ==
--- NOTE | 2023-10-03 07:32 | A.OFFVIS_ITS ---
Intake Intake Visit Reasons: Type 2 DM-confirmed Pacu Nurse Required: No Accompanied by: Self / Same As Patient Allergies No Known Allergies Allergy (Verified 09/11/23 08:12) HPI Comprehensive Diabetes Asmnt Most Recent Diabetes Results: Cholesterol 190 mg/dL (<200) 06/20/23 HDL Cholesterol 37 mg/dL (>40) L 06/20/23 Triglycerides 114 mg/dL (<150) 06/20/23 Creatinine 0.74 mg/dL (0.5-1.4) 06/20/23 Blood Urea Nitrogen 16 mg/dL (9-16) 06/20/23 Sodium 138 mmol/L (135-145) 06/20/23 Potassium 4.0 mmol/L (3.3-5.1) 06/20/23 Chloride 104 mmol/L (96-108) 06/20/23 Carbon Dioxide 24 mmol/L (22-29) 06/20/23 Calcium 8.9 mg/dL (8.4-10.2) 06/20/23 AST 16 U/L (5-37) 06/20/23 ALT 37 U/L (0-40) 06/20/23 Total Protein 6.9 g/dL (6.5-8.0) 06/20/23 Albumin 4.2 g/dL (3.5-5.0) 06/20/23 [facility] Medical History (Updated 09/11/23 @ 08:54 by Ryann Peña PA-C) Hyperlipidemia Uncontrolled type 2 diabetes mellitus with hyperglycemia Morbid (severe) obesity due to excess calories Migraine Snores Asthma, stable Hypertension Surgical History History of tonsillectomy H/O colonoscopy S/P excision of lipoma [place] teeth extracted Family History Other Mental health disorder Social History Housing: House Patient Tobacco Use Status: Former Tobacco user Tobacco use type: Cigarette Years Smoked: 20 e-Cigarette/Vaping Use: Never Used Second Hand Smoke Exposure: No Current occupational status: employed Cognitive needs: No Hearing needs: No Vision needs: No Assessment & Plan Assessment & Plan (1) Uncontrolled type 2 diabetes mellitus with hyperglycemia: Code(s): E11.65 - Type 2 diabetes mellitus with hyperglycemia Plan: Diabetes self-management education and support participation record Assessment/scale: 1= needs instructed? 2= needs review? 3= comprehend keep point? 4= demonstrates understanding/ competent? NC= Not Covered Topics Learning Objective: Initial visit Initial or post srvc Initial or post srvc Initial or post srvc Initial or post srvc Initial or post srvc Post srvc Comments Pre Edu-assessment/plan Outcome or reassess Outcome or reassess Outcome or reassess Outcome or reassess Outcome or reassess Outcome or reassess Diabetes pathophysiology 1 C Healthy eating 2 Being active 1 Taking medication 1 Monitoring glucose 2 Acute complication 1 Chronic complicated 2 Lifestyle and healthy coping 1 Diabetes distress in support 1 ?Diabetes pathophysiology: ?Defined diabetes med identify own type of diabetes; list 3 options for treating diabetes Healthy eating: ?Described effect of type, amount and ?timing of food on blood glucose; list 3 methods for planning meal Being active: ?State effect of exercise on blood glucose level Taking medication: ?State effect of diabetes medications on diabetes; name diabetes medications taking, action and side effects Monitoring glucose: ?Identify recommended blood glucose targets and personal target Acute complication: ?List symptoms and treatment of hyper and hypoglycemia, DKA, sick day guidelines and guidelines for severe weather or situations of crisis and diabetes supply manage Chronic complication: ?To find the relationship of blood glucose levels to long- term complications of diabetes in screening and preventative measures Lifestyle and healthy coping: ?Described lifestyle and healthy coping strategies to rule out diabetes self-management Diabetes to stress and support: ?Recognize Diabetes to stress and be able to identified support options Learning objectives: The patient was provided with verbal and written education on the following topics as outlined below. The patient met all learning objectives and was able to verbalize understanding and provide teach back of education topics discussed . The patient was provided with the opportunity to ask questions and all questions were answered. 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 Patient identified several foods off carbohydrate food list that he currently is eating Patient questions/concerns, patient reports he was diagnosed with type 2 diabetes in May 2023, patient's last A1c 11% on 07/13/2023 What is Diabetes? Pathophysiology How the body produces and uses insulin Identify type of DM Risk factors Signs of Diabetes Brief overview of Diabetes Management Monitoring blood sugar Following a meal plan Regular exercise Maintaining a healthy weight Taking medication as needed Members of the care team (PCP, RN, MA, RD, CDE, planer tailer) Blood glucose monitoring When/how often to test Target blood sugar ranges Patient is testing sporadically throughout the week Glucose on meter range from 108-180 mg/dL Introduction to Nutrition Importance of healthy diet in managing DM Diet is personalized to individual preference Review patient?s regular diet/food preferences Who prepares meals/does food shopping/ Dining out?/ Barriers? How diet effects glucose Eating 3 balanced meals a day with small, healthy snacks between meals Review food groups Carbohydrates: What is a carbohydrate/Which food/food groups are considered carbohydrates Effect of carbohydrates on blood glucose Portion sizes Reading food labels Basic carb counting (if applicable per nursing assessment) Plate method Meal planning Recommendations: Follow plate method, consistent carbs and read nutritional labels. Smart Goal: Educational Materials: The patient was provided with the following written educational materials: Planning Healthy Meals Handout Patient Response to instructions: Comprehension of Instructions: Fair Readiness to make changes: Contemplation How confident they feel about making changes: Positive Portions of this note were created using voice recognition software, please excuse any words or phrases that may have been misinterpreted. Patient Instructions: Include regular daily activity. ADA recommends 30 minutes of exercise 5 days a week. Weight loss talk to PCP or [facility] before starting new plan. Test blood sugar as directed; Fasting and 2hpp largest meal. Watch trends in results. Utilize results and to assess how food, physical activity and m edications affect blood sugar results. Bring glucometer or CGM to next visit. Be knowledgeable about diabetes medication, its action, side effects, efficacy, toxicity, prescribed dosage, appropriate timing and frequency of administration, effect of missed and delayed doses and instructions for storage, travel and safety. Problem solving techniques to monitor hypo/hyperglycemia episodes and treat ments. Reduce risk reduction behaviors, smoking cessation, regular eye, foot and dental examinations. Coding Level of Care Code Est Pt Level 1 (96449) Diagnoses Uncontrolled type 2 diabetes mellitus with hyperglycemia E11.65
== END 2023-10-03 07:33 | disposition home or self-care (01) ==
PROVIDERS: PCP Nurse Practitioner Family; Visit Provider Registered Nurse Diabetes Educator
DX: E11.65 Type 2 diabetes mellitus with hyperglycemia (principal)

== ENCOUNTER → 2023-10-03 06:58 | Outpatient (BNVA) | payer BC, SELFPAY | PROVIDERS: PCP Nurse Practitioner Family; Visit Provider Registered Nurse Diabetes Educator | DX: E11.65 Type 2 diabetes mellitus with hyperglycemia (principal) | CPT/HCPCS: 99211 ==

== ENCOUNTER 2023-10-10 09:09 | Outpatient (REF) | payer BC, SELFPAY ==
[2023-10-10 10:20] LABS: Estimated Average Glucose 166 mg/dL; Hemoglobin A1c % 7.4 % (<6.0)
[2023-10-10 11:09] LABS: Anion Gap 11 (12-20); Blood Urea Nitrogen 15 mg/dL (9-16); Calcium 9.3 mg/dL (8.4-10.2); Carbon Dioxide 28 mmol/L (22-29); Chloride 108 mmol/L (96-108); Estimated Glomerular Filt Rate > 60; Glucose Random 85 mg/dL (60-115); Potassium 3.6 mmol/L (3.3-5.1); Sodium 143 mmol/L (135-145)
[2023-10-10 11:40] LABS: Creatinine Urine 255.16 mg/dL; Microalbum/Creatinine Ratio Ur 203.7 ug/mg cr (<30)
== END 2023-10-10 09:10 | disposition home or self-care (01) ==
LOC: HO.LAB 09:09
PROVIDERS: PCP Nurse Practitioner Family; Visit Provider Physician Assistant
DX: E11.65 Type 2 diabetes mellitus with hyperglycemia (principal); E78.5 Hyperlipidemia, unspecified; I10 Essential (primary) hypertension
CPT/HCPCS: 36415; 80048; 82043; 82570; 83036

== ENCOUNTER 2023-10-16 08:39 | Outpatient (AMB) | payer BC, SELFPAY ==
--- NOTE | 2023-10-16 08:22 | A.OFFVIS_ITS ---
Vital Signs 10/16/23 08:45 Height 5 ft 7 in Weight 332 lb 14.368 oz BMI 52.1 BP 132/84 Blood Pressure Location Rt brachial Position Sitting Pulse 86 Pulse Source Pulse Oximeter Intake Visit Reasons: F/u DM/CONFIRMED Intake Note: Patient presents today for [facility] follow up visit. Last Diabetic Eye exam: DueOctober Last Podiatry Visit: Does not see a Functional Skills Tutor Random Glucose: 174 mg/dL, Today HgA1c: 7.4% 10/10/23 [employer] Required: No Accompanied by: Self / Same As Patient Allergies No Known Allergies Allergy (Verified 10/16/23 08:43) Medication List - Last Reconciled 10/16/23 by Ryann Peña PA-C acetaminophen (Tylenol Extra Strength) 500 mg PO Q6H PRN aspirin 81 mg PO DAILY atorvastatin 10 mg PO BEDTIME blood sugar diagnostic ([employer] Ver[employer] test strips) Test blood sugar once a day blood-glucose meter ([employer] Verio Flex Meter) As directed cholecalciferol (vitamin D3) 50 mcg PO DAILY ciclopirox 8% 1 appl topical DAILY 4 weeks clindamycin phosphate 1% 1 appl topical BEDTIME 20 days glipizide 5 mg PO BID 90 days ibuprofen 800 mg PO Q8H PRN lancets ([employer] Delica Plus Lancet) Test blood sugar once a day lisinopril 10 mg PO DAILY 90 days metformin ER 500 mg PO DAILY HPI HPI F/u DM/CONFIRMED: Details: Patient is a 48-year-old male who presents today for a diabetic follow-up. He has a significant past medical history of hypertension, poorly controlled type 2 diabetes, and hyperlipidemia. He was last seen by myself a month ago. Endo: He was recently diagnosed with diabetes a few months ago. His last A1c was 11 and now it is 7.4. He is currently on glipizide 5 mg twice a day, Mounjaro 2.5 mg weekly, and metformin 500 mg daily. -he is tolerating meds without issues. -He has been checking his blood sugars 1-2 x a day. He states this morning it was 150. He states it was only high because he has been sick with a cold for the last 3 days. He is starting to feel better. His blood sugars generally at home for about 120.. No hypoglycemic events. He states that he does notice when he eats sugary things he gets tired. He has been really trying to lose weight and walk more. He states that his daughter has been following with a ultimate hoops trainer and that they are on the same sort of program. He is trying to now increase his protein intake and make sure he walks about a miles a day. -he is on an APOLINAR-inhibitor and statin. -He states most people in his family have t2dm. -he was started on Penlac solution. He feels that this is helping. -he is referred for an eye exam and states that he expects to have an appointment soon. Denies any known vision changes. CV: Blood pressure today in the office is 132/82. At our last visit his blood pressure was elevated above goal. He is on lisinopril 10 mg. He states he was nervous today and most of his bps at home have been normal. Cholesterol is controlled Lipitor 10 mg. [facility] Medical History (Updated 10/16/23 @ 08:58 by Ryann Peña PA-C) Hyperlipidemia Uncontrolled type 2 diabetes mellitus with hyperglycemia Morbid (severe) obesity due to excess calories Migraine Snores Asthma, stable Hypertension Surgical History History of tonsillectomy H/O colonoscopy S/P excision of lipoma [place] teeth extracted Family History Other Mental health disorder Social History Housing: House Patient Tobacco Use Status: Former Tobacco user Tobacco use type: Cigarette Years Smoked: 20 e-Cigarette/Vaping Use: Never Used Second Hand Smoke Exposure: No Current occupational status: employed Cognitive needs: No Hearing needs: No Vision needs: No Physical Exam Const Orientation/consciousness: patient oriented x3 Neck Neck: Yes no lymphadenopathy Thyroid: Thyroid normal Carotids: no bruits Resp Auscultation: clear to auscultation bilaterally Cardio Rate: regular rate Rhythm: regular rhythm Heart sounds: S1 normal heart sound present and S2 normal heart sound present Peripheral pulses: dorsalis pedis present Skin Nails: yellow and thickened Neuro General: patient oriented x3, gait normal and no focal motor deficits Extrem Other: Monofilament sensation intact bilaterally. Vibratory sensation intact bilaterally. Skin intact. General: Yes normal to inspection Results Reviewed Results Reviewed: Laboratory Tests 07/13/23 10/10/23 14:29 09:27 Sodium 143 Potassium 3.6 Chloride 108 Carbon Dioxide 28 Anion Gap 11 L BUN 15 Creatinine 0.75 Estimated GFR > 60 Random Glucose 85 Estimat Average Glucose 166 Hgb A1c (Clinic) 11.0 H Hemoglobin A1c % 7.4 H Calcium 9.3 Assessment & Plan Assessment & Plan (1) Uncontrolled type 2 diabetes mellitus with hyperglycemia: Code(s): E11.65 - Type 2 diabetes mellitus with hyperglycemia Category: Medical Plan: increase mounjaro to 5 mg. continue with metformin and glipizide. follow up in 3 months. labs prior (2) HTN (hypertension): Code(s): I10 - Essential (primary) hypertension Category: Medical Qualifiers: Hypertension type: primary hypertension Qualified Code(s): I10 - Essential (primary) hypertension Plan: Continue current regimen (3) Hyperlipidemia: Code(s): E78.5 - Hyperlipidemia, unspecified Category: Medical Qualifiers: Hyperlipidemia type: pure hypercholesterolemia Qualified Code(s): E78.00 - Pure hypercholesterolemia, unspecified Plan: Continue current regimen Orders: Orders Hemoglobin A1c 3 Months E11.65 - Type 2 diabetes mellitus with hyperglycemia, E78.00 - Pure hypercholesterolemia, unspecified, I10 - Essential (primary) hypertension Comprehensive [place]. Panel Fast 3 Months E11.65 - Type 2 diabetes mellitus with hyperglycemia, E78.00 - Pure hypercholesterolemia, unspecified, I10 - Essential (primary) hypertension Medications: New tirzepatide (Mounjaro) 5 mg (0.5 mL) subcut QWEEK 2 mL 4RF Coding Level of Care Code Est Pt Level 4 (99414) Complex EM visit Add On G2211 Diagnoses Uncontrolled type 2 diabetes mellitus with hyperglycemia E11.65 Primary hypertension I10 Hypertension type: primary hypertension Pure hypercholesterolemia E78.00 Hyperlipidemia type: pure hypercholesterolemia
[2023-10-16 08:45] VITALS: BP 132/84; PULSE 86; BMI 52.1
[2023-10-16 08:54] LABS: Glucose, Whole Blood 174 mg/dL (60-115)
== END 2023-10-16 09:04 | disposition home or self-care (01) ==
PROVIDERS: PCP Nurse Practitioner Family; Visit Provider Physician Assistant
DX: E11.65 Type 2 diabetes mellitus with hyperglycemia (principal); I10 Essential (primary) hypertension; E78.00 Pure hypercholesterolemia, unspecified
CPT/HCPCS: 99214

== ENCOUNTER → 2023-10-16 08:39 | Outpatient (BNVA) | payer BC, SELFPAY | PROVIDERS: PCP Nurse Practitioner Family; Visit Provider Physician Assistant | DX: E11.65 Type 2 diabetes mellitus with hyperglycemia (principal); I10 Essential (primary) hypertension; E78.00 Pure hypercholesterolemia, unspecified | CPT/HCPCS: 82947 ==

== ENCOUNTER 2023-11-01 06:55 | Outpatient (AMB) | payer BC, SELFPAY ==
--- NOTE | 2023-11-01 07:09 | A.OFFVIS_ITS ---
Intake Intake Visit Reasons: 60 Min/LVM Allergies No Known Allergies Allergy (Verified 10/16/23 08:43) HPI Comprehensive Diabetes Asmnt Most Recent Diabetes Results: Microalb/Creat Ratio 203.7 ug/mg cr (<30) H 10/10/23 Cholesterol 190 mg/dL (<200) 06/20/23 HDL Cholesterol 37 mg/dL (>40) L 06/20/23 Triglycerides 114 mg/dL (<150) 06/20/23 Creatinine 0.75 mg/dL (0.5-1.4) 10/10/23 Blood Urea Nitrogen 15 mg/dL (9-16) 10/10/23 Sodium 143 mmol/L (135-145) 10/10/23 Potassium 3.6 mmol/L (3.3-5.1) 10/10/23 Chloride 108 mmol/L (96-108) 10/10/23 Carbon Dioxide 28 mmol/L (22-29) 10/10/23 Calcium 9.3 mg/dL (8.4-10.2) 10/10/23 AST 16 U/L (5-37) 06/20/23 ALT 37 U/L (0-40) 06/20/23 Total Protein 6.9 g/dL (6.5-8.0) 06/20/23 Albumin 4.2 g/dL (3.5-5.0) 06/20/23 [facility] Medical History Hyperlipidemia Uncontrolled type 2 diabetes mellitus with hyperglycemia Morbid (severe) obesity due to excess calories Migraine Snores Asthma, stable Hypertension Surgical History History of tonsillectomy H/O colonoscopy S/P excision of lipoma [place] teeth extracted Family History Other Mental health disorder Social History Housing: House Patient Tobacco Use Status: Former Tobacco user Tobacco use type: Cigarette Years Smoked: 20 e-Cigarette/Vaping Use: Never Used Second Hand Smoke Exposure: No Current occupational status: employed Cognitive needs: No Hearing needs: No Vision needs: No Assessment & Plan Assessment & Plan (1) Uncontrolled type 2 diabetes mellitus with hyperglycemia: Code(s): E11.65 - Type 2 diabetes mellitus with hyperglycemia Plan: Diabetes self-management education and support participation record Assessment/scale: 1= needs instructed? 2= needs review? 3= comprehend keep point? 4= demonstrates understanding/ competent? NC= Not Covered Topics Learning Objective: Initial visit Initial or post srvc Initial or post srvc Initial or post srvc Initial or post srvc Initial or post srvc Post srvc Comments Pre Edu-assessment/plan Outcome or reassess Outcome or reassess Outcome or reassess Outcome or reassess Outcome or reassess Outcome or reassess Diabetes pathophysiology 1 Healthy eating 2 3 Being active 1 3 Taking medication 1 3 Monitoring glucose 2 2 Acute complication 1 2 Chronic complicated 2 3 Lifestyle and healthy coping 1 Diabetes distress in support 1 ?Diabetes pathophysiology: ?Defined diabetes med identify own type of diabetes; list 3 options for treating diabetes Healthy eating: ?Described effect of type, amount and ?timing of food on blood glucose; list 3 methods for planning meal Being active: ?State effect of exercise on blood glucose level Taking medication: ?State effect of diabetes medications on diabetes; name diabetes medications taking, action and side effects Monitoring glucose: ?Identify recommended blood glucose targets and personal target Acute complication: ?List symptoms and treatment of hyper and hypoglycemia, DKA, sick day guidelines and guidelines for severe weather or situations of crisis and diabetes supply manage Chronic complication: ?To find the relationship of blood glucose levels to long- term complications of diabetes in screening and preventative measures Lifestyle and healthy coping: ?Described lifestyle and healthy coping strategies to rule out diabetes self-management Diabetes to stress and support: ?Recognize Diabetes to stress and be able to identified support options Learning objectives: The patient was provided with verbal and written education on the following topics as outlined below. Patient questions/concerns, patient's A1c has improved from 11.0% on 07/13/2023, to 7.4 10/10/2023 Patient reports he has significantly reduced carbohydrate portions at mealtimes, has stopped drinking high carbohydrate drinks The patient met all learning objectives and was able to verbalize understanding and provide teach back of education topics discussed . The patient was provided with the opportunity to ask questions and all questions were answered. Topics covered in today?s session included: Medications (If applicable) * Name of medication? * Dosing/administration instructions? * Mechanism of action? * Potential side effects? * Potential adverse reaction and appropriate treatment? * Review onset, peak, duration Assess for concerns re: insurance coverage, cost, barriers to compliance Insulin/Injectables (If applicable) * Storage/care of insulin?? * Injection sites? * Site rotation? * Onset, peak, duration * Drawing up insulin? * Injecting insulin/other injectables? * Sharps disposal Continuous blood glucose monitoring (if applicable) Hypoglycemia and Hyperglycemia * Signs and symptoms? * Causes?? * Treatment? * Preventing hypoglycemia? * When to seek medical attention Target Goals: * Blood glucose targets and how you feel when your blood glucose is in and out of your target ranges. * Monitoring and knowing your A1C. * What can make blood glucose go up and down and preventing high and low blood glucose. * Review of blood sugar targets in expected goal range and outside of expected goal range. * Problem solving and preventing hyper/hypoglycemia. * Sick day management of diabetes. * Using blood sugar results in decision making process in managing diabetes. ?Patient was receptive to information provided and participated in the discussion. Asked?appropriate questions and demonstrated good understanding of the topics discussed.? ? Educational Materials: The patient was provided with the following written educational materials: Target Goal handout Smart Goal: Patient will check glucose once a day at varied times of the day Patient Response to instructions: Comprehension of Instructions: Good Readiness to make changes:? action How confident they feel about making changes: Positive Portions of this note were created using voice recognition software, please e xcuse any words or phrases that may have been misinterpreted. Patient Instructions: People with diabetes face a higher risk for complications. In general, people with diabetes are more likely to experience severe symptoms and complications when infected with a virus. The problem people with diabetes face is primarily a problem of worse outcomes Before you get sick,?make a plan: Gather your supplies: ? Phone numbers of your doctors and healthcare team, your pharmacy and your insurance provider ? List of medications and doses (including vitamins and supplements) ? Simple carbs like regular soda, honey, jam, Jell-O, hard candies or popsicles to help keep your blood sugar up if you are at risk for lows and too ill to eat ? If a state of emergency is declared, get extra refills on your prescriptions so you do not have to leave the house ?? If you can't get to the pharmacy, find out about having your medications delivered ? Always have enough insulin for the week ahead, in case you get sick or cannot refill ? Extra supplies like rubbing alcohol and soap to wash your hands ? Glucagon and ketone strips, in case of lows and highs ? Have enough household items and groceries on hand so that you will be prepared to stay at home for a period of time Talk to your health care team about the following: ? When to call your doctor's office (for ketones, changes in food intake, medication adjustments, etc.) ? How often to check your blood sugar ? When to check for ketones ? Medications you should use for colds, flu, virus, and infections ? Any changes to your diabetes medications when you are sick Take everyday precautions: ? Avoid close contact with people who are sick ? Take preventive actions: ??? Clean your hands often Wash your hands often with soap and water for at least 20 seconds, especially after blowing your nose, coughing, or sneezing, or having been in a public place. ?? If soap and water are not available, use a hand general office associate that contains at least 60% alcohol. To the extent possible, avoid touching high-touch surfaces in public places?elevator buttons, door handles, handrails, handshaking with people, etc. Use a tissue or your sleeve to cover your hand or finger if you must touch something. Wash your hands after touching surfaces in public places. ? Avoid touching your face, nose, eyes, etc. Clean and disinfect your home to remove germs: practice routine cleaning of frequently touched surfaces (for example: tables, doorknobs, light switches, handles, desks, toilets, faucets, sinks & cell phones) Avoid crowds, especially in poorly ventilated spaces. Your risk of exposure to respiratory viruses like COVID-19 may increase in crowded, closed-in settings with little air circulation if there are people in the crowd who are sick. Avoid all non-essential travel including plane trips, and especially avoid embarking on cruise ships. Watch for emergency warning signs: If you develop emergency warning signs get medical attention?immediately. In adults, emergency warning signs include: ? Difficulty breathing or shortness of breath ? Persistent pain or pressure in the chest ? New confusion or inability to arouse ? Bluish lips or face If you do get sick, know what to do: Here are some common tips, which may vary for each person: ? Drink lots of fluids. If you're having trouble keeping water down, have small sips every 15 minutes or so throughout the day to avoid dehydration. ? If you are experiencing a low (blood sugar below 70 mg/dl or your target range), eat 15 grams of simple carbs that are easy to digest like honey, jam, Jell-O, hard candy, popsicles, juice or regular soda, and re-check your blood sugar in 15 minutes to make sure your levels are rising. Check your blood sugar extra times throughout the day and night (generally, every 2-3 hours; if using a CGM, monitor frequently). ? If your blood sugar has registered high (BG greater than 240mg/dl) more than 2 times in a row ? Call your doctor's office immediately, if you have medium or large ketones (and if instructed to with trace or small ketones). ? Wash your hands and clean your injection/infusion and finger-stick sites with soap and water or rubbing alcohol. Why do blood glucose values go up when I am sick? Your body is under stress when you are sick. Hormones that are released to help fight the illness can also raise your glucose levels. Your body becomes less sensitive to your insulin too, so you need more to have the same effect compared to when you are well. What should I always keep on hand to be prepared for a sick day? Glucose testing kit and strips (more than you think you will need) or CGM sensors ? Ketone testing supplies, either urine or special test strips for fingerstick testing with specific meter (even if you feel you never get sick because the level of ketones lets you and your team know how severely your diabetes is being affected by your illness) ? Plenty of water or sugar-free beverages ? Plenty of all your types of insulin What should I do when I am sick? Continue to take your insulin even if you are not eating much. Take your long acting insulin or continue your basal insulin if you are on an insulin pump. ? Check your blood glucose values every 3-4 hours. If you have a continuous glucose monitor, watch for trends and make sure your correctional insulin is working. ? Stay well hydrated, drinking fluid every hour ? tea, water, diet soda, broth. ? Make sure you are also eating some carbohydrates When should I call for help? You have been sick or had a fever for a few days and are not getting better. ? You are vomiting or have diarrhea for more than 6 hours. ? You have moderate to large ketones even if your glucose is not high. ? Your blood glucose values stay above 240 mg/dl even when you are giving extra insulin. You are not sure what to do Coding Level of Care Code Est Pt Level 1 (81664) Diagnoses Uncontrolled type 2 diabetes mellitus with hyperglycemia E11.65
== END 2023-11-01 07:31 | disposition home or self-care (01) ==
PROVIDERS: PCP Nurse Practitioner Family; Visit Provider Registered Nurse Diabetes Educator
DX: E11.65 Type 2 diabetes mellitus with hyperglycemia (principal)

== ENCOUNTER → 2023-11-01 06:55 | Outpatient (BNVA) | payer BC, SELFPAY | PROVIDERS: PCP Nurse Practitioner Family; Visit Provider Registered Nurse Diabetes Educator | DX: E11.65 Type 2 diabetes mellitus with hyperglycemia (principal) | CPT/HCPCS: 99211 ==

== ENCOUNTER 2023-11-28 07:45 | Outpatient (AMB) | payer BC, SELFPAY ==
--- NOTE | 2023-11-28 07:51 | A.OFFPC_ITS ---
Vital Signs 11/28/23 07:55 Height 5 ft 7 in Weight 340 lb BMI 53.2 BP 108/62 Blood Pressure Location Rt brachial Position Sitting Pulse 82 Pulse Source Pulse Oximeter Pulse Oximetry (%) 96 Oxygen Delivery Method Room Air Intake Visit Reasons: 6M F/U Intake Note: Pt is here today for his 6mo. f/u Allergies No Known Allergies Allergy (Verified 11/28/23 07:56) Tobacco use date assessed: 11/28/23 Dental Screening Dental Screen Date: 11/28/23 Did you have a dental visit in the last 12 months?: No Did you have a dental problem in the last 6 months where you did not have access to dental care?: No Was dental information given to patient?: No HPI 6M F/U HPI Details HTN: stable currently. Will order labs. For his diabetes he is seeing endo. Microalbumin elevated, will refer to nephrology, though already on a Alex. Pt reports working on his diabetes, doing well. Obesity: referring for sleep study. Pt does report snoring as well. Denies any CP, SOB, dizziness, RODRIGUEZ, or blurred vision. Does reports some fatigue. [facility], [facility] Medical History Hyperlipidemia Uncontrolled type 2 diabetes mellitus with hyperglycemia Morbid (severe) obesity due to excess calories Migraine Snores Asthma, stable Hypertension Surgical History History of tonsillectomy H/O colonoscopy S/P excision of lipoma [place] teeth extracted Family History Other Mental health disorder Social History Housing: House Patient Tobacco Use Status: Former Tobacco user Tobacco use type: Cigarette Years Smoked: 20 e-Cigarette/Vaping Use: Never Used Second Hand Smoke Exposure: No Current occupational status: employed Cognitive needs: No Hearing needs: No Vision needs: No Questionnaire PHQ-9 Over the last 2 weeks, how often have you been bothered by any of the following problems? 1. Little interest or pleasure in doing things: not at all 2. Feeling down, depressed, or hopeless: not at all 3. Trouble falling or staying asleep, or sleeping too much: several days 4. Feeling tired or having little energy: not at all 5. Poor appetite or overeating: not at all 6. Feeling bad about yourself - or that you are a failure or have let yourself or your family down: not at all 7. Trouble concentrating on things, such as reading the newspaper or watching television: not at all 8. Moving or speaking so slowly that other people could have noticed. Or the opposite - being so fidgety or restless that you have been moving around a lot more than usual: not at all 9. Thoughts that you would be better off or of hurting yourself in some way: not at all Total score: 1 Depression Screening Interpretation: Negative Depression Screening Done: Yes 16020 - PHQ-9 Billing: Yes Source: Developed by Drs. Tom Baptiste, Vivian Jaimes, Juaquin Meneses and colleagues, with an educational carmelo from [employer]. Thrive Questionnaire Date Thrive assessed: 11/21/23 I am a: Patient What is your living situation today?: I have a steady place to live Within the past 12 months, did the food you bought not last and you didn't have the money to get more?: Never true Within the past 12 months, did you worry whether your food would run out before you got money to buy more?: Never true Do you have trouble paying for medicines?: No Do you have trouble getting transportation to medical appointments?: No Do you have trouble paying your heating and electricity bill?: No Do you have trouble taking care of your child, family member or friend?: No Do you have trouble with day-to-day activities such as bathing, preparing meals, shopping, managing finances, etc.?: No Are you interested in more education?: No Please select the resources that you would like help with: None Currently or been in a relationship where the following occur: No concerns reported THRIVE Score: 0 AUDIT C Alcohol Use Questionnaire (AUDIT-C) 1. How often do you have a drink containing alcohol?: Monthly or less 2. How many drinks containing alcohol do you have on a typical day when you are drinking?: 1 or 2 3. How often do you have six or more drinks on one occasion?: Less than monthly Total Score: 2 SANDY-7 AMB Questionnaire SANDY-7 Date SANDY - 7 assessed: 01/21/21 Feeling nervous, anxious, or on edge: 0 = Not at all Not being able to stop or control worryin = Not at all Worrying too much about different things: 0 = Not at all Trouble relaxin = Several days Being so restless that it is hard to sit still: 1 = Several days Becoming easily annoyed or irritable: 1 = Several days Feeling afraid as if something awful might happen: 1 = Several days Total SANDY-7 score (0-4 normal; 5-9 mild; 10-14 moderate; 15-21 severe): 4 Source: Developed by Drs. Tom Baptiste, Vivian Jaimes, Juaquin Meneses and colleagues, with an educational carmelo from [employer]. SANDY-7 Assessment Billing SANDY-7 Assessment Tool: SANDY-7 Assessment 65544 Review of Systems Const Denies chills and Denies fever(s) Eyes Denies blurry vision ENT Denies vertigo, Denies dizziness and Denies sore throat Card Denies chest pain at rest, Denies chest pain with activity, Denies diaphoresis, Denies dyspnea and Denies dyspnea on exertion Resp Denies cough, Denies dyspnea, Denies dyspnea on exertion and Denies wheezing GI Denies abdominal pain, Denies melena, Denies hematochezia, Denies constipation, Denies diarrhea and Denies loose stools Denies hematuria Musc Denies numbness and Denies tingling Skin/Breast Denies lesions Neuro Denies vertigo, Denies dizziness, Denies numbness and Denies tingling Psych Denies anxiety, Denies depression, Denies homicidal ideation, Denies suicidal ideation and Denies other (substance abuse) Aller/Immun Denies wheezing Physical exam (Primary Care) Vital Signs: Last Vital Signs Pulse 82 11/28/23 07:55 BP 108/62 11/28/23 07:55 Pulse Ox 96 11/28/23 07:55 Oxygen Delivery Method Room Air 11/28/23 07:55 BMI result Body Mass Index 53.2 Tobacco/Smoking Status: Tobacco use Status Tobacco use date assessed 11/28/23 11/28/23 07:58 Patient Tobacco Use Status Former Tobacco user 11/28/23 07:52 Tobacco use type Cigarette 11/28/23 07:52 e-Cigarette/Vaping Use Never Used 11/28/23 07:52 PHQ-9: PHQ-9 Score PHQ-9: Total score 1 11/28/23 07:58 Depression Screening Interpretation: Negative Thrive Assessment: Date of Thrive Assessment Date Thrive assessed 11/21/23 11/28/23 07:52 Currently or been in a relationship where the following occur: No concerns reported Const General: cooperative Nutritional Appearance: well nourished and obese Orientation/consciousness: patient oriented x3 HENMT Head: Yes normal to inspection, Yes normocephalic and Yes atraumatic Eyes General: appearance normal, both eyes and all related structures Alignment and Position: alignment normal and position normal Resp Effort & Inspection: normal respiratory effort Auscultation: clear to auscultation bilaterally Cardio Rate: regular rate Rhythm: regular rhythm Heart sounds: S1 normal heart sound present, S2 normal heart sound present and no murmurs GI Palpation (GI): Soft to palpation and nontender Auscultation: normal bowel sounds Male General Exam: Yes normal external exam Neuro General: patient oriented x3, moves all extremities, no focal motor deficits and deep tendon reflexes 2+ bilaterally Romberg Test: Negative Extrem Other: Onychomycosis noted bilateral (toe nails), + sensation with use of monofilament, intact feet bilat Right lower extremity: no edema Left lower extremity: no edema Psych Affect: normal affect Attitude: cooperative Thought process: Normal thought process present Immunizations pneumoc 20-chikis conj-dip cr(PF) 0.5 mL IM syringe Performing Provider: ODALIS Larson Performing Location: [facility] Administered by: Kennedy López CMA on 11/28/23 08:38 Dose Route Admin Location Dispensed Lot Number Expiration Date [facility] Seismograph Supervisor 0.5 mL IM Right Deltoid 0.5 mL [id number] 02/08/25 5864-5121-03 [employer] VIS Given Date VIS Provided VIS Publication Date 11/28/23 Single Vaccine 21 Eligibility Eligibility Date Funding Source Not [facility] Eligible 11/28/23 Private Coding Level of Care Code Est Pt Level 3 (11207) Diagnoses Uncontrolled type 2 diabetes mellitus with hyperglycemia E11.65 Microalbuminuria R80.9 Primary hypertension I10 Hypertension type: primary hypertension Snores R06.83 Obesity E66.9 Additional Codes SANDY-7 Assessment Billing - SANDY-7 Assessment Tool: SANDY-7 Assessment 34717 ([id number]) Assessment & Plan Assessment & Plan (1) Uncontrolled type 2 diabetes mellitus with hyperglycemia: Code(s): E11.65 - Type 2 diabetes mellitus with hyperglycemia Category: Medical Plan: Following up with endo. Last A1c appears to be 7.4. (2) Microalbuminuria: Code(s): R80.9 - Proteinuria, unspecified Category: Medical Plan: On an Alex. Referring to Nephrology (3) HTN (hypertension): Code(s): I10 - Essential (primary) hypertension Category: Medical Qualifiers: Hypertension type: primary hypertension Qualified Code(s): I10 - Essential (primary) hypertension Plan: Currently stable. (4) Snores: Code(s): R06.83 - Snoring Category: Medical Plan: Referring to sleep Medicine for possible sleep study. (5) Obesity: Code(s): E66.9 - Obesity, unspecified Category: Medical Plan: Started on Mounjaro by endo., also referred to sleep Medicine. Patient is currently working on his diet. Orders: Orders Complete Blood Count Auto Diff Today I10 - Essential (primary) hypertension UA CC w/rflx Micro + Cult Today I10 - Essential (primary) hypertension Comprehensive [place]. Panel Fast Today I10 - Essential (primary) hypertension TSH reflex Free T4 Today I10 - Essential (primary) hypertension Lipid Panel Today I10 - Essential (primary) hypertension Pneumococcal 20 Immunization Today Z23 - Encounter for immunization Referrals Nephrology Referral R80.9 - Proteinuria, unspecified Sleep Medicine Referral E66.9 - Obesity, unspecified, R06.83 - Snoring Medications: New pneumoc 20-chikis conj-dip cr(PF) 0.5 mL IM ONCE 0.5 mL 0RF Z23 - Encounter for immunization
[2023-11-28 07:55] VITALS: BP 108/62; PULSE 82; O2SAT 96; BMI 53.2
== END 2023-11-28 13:25 | disposition home or self-care (01) ==
PROVIDERS: PCP Nurse Practitioner Family; Visit Provider Nurse Practitioner Family
DX: E11.65 Type 2 diabetes mellitus with hyperglycemia (principal); Z68.43 Body mass index [BMI] 50.0-59.9, adult; E66.813 Obesity, class 3; R80.9 Proteinuria, unspecified; I10 Essential (primary) hypertension; R06.83 Snoring; Z23 Encounter for immunization

== ENCOUNTER → 2023-11-28 07:45 | Outpatient (BNVA) | payer BC, SELFPAY | PROVIDERS: PCP Nurse Practitioner Family; Visit Provider Nurse Practitioner Family | DX: E11.65 Type 2 diabetes mellitus with hyperglycemia (principal); R80.9 Proteinuria, unspecified; I10 Essential (primary) hypertension; R06.83 Snoring; E66.9 Obesity, unspecified; Z68.43 Body mass index [BMI] 50.0-59.9, adult; Z79.899 Other long term (current) drug therapy; Z23 Encounter for immunization | CPT/HCPCS: 90471; 90677; 96127 ==

== ENCOUNTER 2023-12-25 09:42 | Outpatient (AMB) | payer BC, SELFPAY ==
--- NOTE | 2023-12-25 09:58 | HO.NEPHOV ---
Vital Signs 12/25/23 10:00 Height 5 ft 7 in Weight 346 lb 2 oz BMI 54.2 BP 124/70 Blood Pressure Location Lt brachial Position Sitting Pulse 90 Pulse Source Pulse Oximeter Pulse Oximetry (%) 95 Oxygen Delivery Method Room Air Intake Visit Reasons: Proteinuria-LVM Draw End Hand Required: No Accompanied by: Self / Same As Patient Allergies No Known Allergies Allergy (Verified 12/25/23 09:59) HPI Comments Details: I had the pleasure of seeing aKli in consultation for proteinuria. 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 He has been a diabetic with a strong family history of it. He is found to have proteinuria. He denies any carotid stenosis, peripheral arterial disease, renal artery stenosis, smoking, drug use, renal calculi, coronary artery disease, congestive heart failure, CVA. He has been taking APOLINAR inhibitor. He claims to be trying to lose weight. He has no pedal edema. He used to take nonsteroidal anti-inflammatories but not regularly. He has no history of hepatitis or HIV. He denies nausea, vomiting, diarrhea, chest pain, shortness of breath, paroxysmal nocturnal dyspnea, orthopnea, pedal edema, orthostatic symptoms. He currently feels well. His renal functions are normal. [facility] Medical History Hyperlipidemia Uncontrolled type 2 diabetes mellitus with hyperglycemia Morbid (severe) obesity due to excess calories Migraine Snores Asthma, stable Hypertension Surgical History History of tonsillectomy H/O colonoscopy S/P excision of lipoma [place] teeth extracted Family History Other Mental health disorder Social History Housing: House Patient Tobacco Use Status: Former Tobacco user Tobacco use type: Cigarette Years Smoked: 20 e-Cigarette/Vaping Use: Never Used Second Hand Smoke Exposure: No Current occupational status: employed Cognitive needs: No Hearing needs: No Vision needs: No Review of Systems Const All systems reviewed & are unremarkable except as noted in HPI and below Physical Exam Vital Signs: Last Vital Signs Pulse 90 12/25/23 10:00 BP 124/70 12/25/23 10:00 Pulse Ox 95 11/04/24 10:00 Oxygen Delivery Method Room Air 12/25/23 10:00 BMI result Body Mass Index 54.2 Const General: comfortable and no acute distress Orientation/consciousness: patient oriented x3 HEENT Head: Yes normocephalic Mouth: Normal oral and palatal mucosa present Eyes EOM: EOMs intact bilaterally Neck Neck: Yes supple Resp Auscultation: clear to auscultation bilaterally Cardio Jugular venous distension: no JVD Rate: regular rate GI Palpation (GI): Soft to palpation Auscultation: normal bowel sounds General: Yes no CVA tenderness Back/Spine/Pelvis Back: no CVA tenderness Skin General skin exam: no rashes or lesions noted Neuro General: patient oriented x3 and moves all extremities Extrem General: Yes no pedal edema Results Reviewed Nephrology Results: Sodium 143 mmol/L (135-145) 10/10/23 Potassium 3.6 mmol/L (3.3-5.1) 10/10/23 Chloride 108 mmol/L (96-108) 10/10/23 Carbon Dioxide 28 mmol/L (22-29) 10/10/23 BUN 15 mg/dL (9-16) 10/10/23 Creatinine 0.75 mg/dL (0.5-1.4) 10/10/23 Calcium 9.3 mg/dL (8.4-10.2) 10/10/23 Urine Creatinine 255.16 mg/dL 10/10/23 Assessment & Plan Assessment & Plan (1) Microalbuminuria: Code(s): R80.9 - Proteinuria, unspecified Category: Medical (2) HTN (hypertension): Code(s): I10 - Essential (primary) hypertension Category: Medical Qualifiers: Hypertension type: primary hypertension Qualified Code(s): I10 - Essential (primary) hypertension Plan Kali has proteinuria most likely due to diabetes mellitus. He has high BMI which also has put him at risk for secondary FSGS. He has no history of any hepatitis. He does not give any symptomatology to suggest any active glomerular pathology. He does not take any PPI or nonsteroidal anti-inflammatories regularly. He is on lisinopril 10 mg daily which I increased to 10 mg b.i.d. I have ordered follow-up urine studies. His renal functions are normal. He clearly will benefit from more weight loss. He will benefit from gastric sleeve surgery. All these have been explained in detail. All questions answered and follow-up appointment given Orders: Orders Immunofixation Pnl, Serum 3 Months R80.9 - Proteinuria, unspecified Immunofixation, Random Urine 3 Months R80.9 - Proteinuria, unspecified Hepatitis B Surface Antigen 3 Months R80.9 - Proteinuria, unspecified Protein Creatinine Ratio, Ur 3 Months R80.9 - Proteinuria, unspecified Hepatitis B Core Antibody 3 Months R80.9 - Proteinuria, unspecified Medications: Changed From lisinopril 10 mg PO DAILY 90 days 90 tabs 1RF To lisinopril 10 mg PO BID 90 days 180 tabs 1RF Coding Level of Care Code New Pt Level 4 (73598) Diagnoses Microalbuminuria R80.9 Primary hypertension I10 Hypertension type: primary hypertension
[2023-12-25 10:00] VITALS: BP 124/70; PULSE 90; O2SAT 95; BMI 54.2
== END 2023-12-25 10:21 | disposition home or self-care (01) ==
LOC: HO.HKA 09:43
PROVIDERS: PCP Nurse Practitioner Family; Referring Provider Nurse Practitioner Family; Visit Provider Internal Medicine Nephrology
DX: R80.9 Proteinuria, unspecified (principal); I10 Essential (primary) hypertension
CPT/HCPCS: 99204

== ENCOUNTER → 2023-12-25 09:42 | Outpatient (BNVA) | payer BC, SELFPAY | PROVIDERS: PCP Nurse Practitioner Family; Referring Provider Nurse Practitioner Family; Visit Provider Internal Medicine Nephrology ==

== ENCOUNTER 2024-01-15 07:29 | Outpatient (AMB) | payer BC, SELFPAY ==
--- NOTE | 2024-01-15 07:53 | MHC.OFFVIS ---
Vital Signs 01/15/24 07:54 Height 5 ft 7 in Weight 346 lb 12.594 oz BMI 54.3 BP 134/78 Blood Pressure Location Lt brachial Position Sitting Pulse 77 Pulse Source Pulse Oximeter Intake Visit Reasons: DM/CONFIRMED Intake Note: Patient presents today for D2RI follow up visit. 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 Accompanied by: Self / Same As Patient Allergies No Known Allergies Allergy (Verified 01/15/24 07:58) Medication List - Last Reconciled 01/15/24 by Ryann Peña PA-C acetaminophen (Tylenol Extra Strength) 500 mg PO Q6H PRN aspirin 81 mg PO DAILY atorvastatin 10 mg PO BEDTIME blood sugar diagnostic ([employer] Verio test strips) Test blood sugar once a day blood-glucose meter ([employer] Verio Flex Meter) As directed cholecalciferol (vitamin D3) 50 mcg PO DAILY ciclopirox 8% 1 appl topical DAILY 4 weeks clindamycin phosphate 1% 1 appl topical BEDTIME 20 days glipizide 5 mg PO BID 90 days lancets (OneTouch Delica Plus Lancet) Test blood sugar once a day lisinopril 10 mg PO BID 90 days metformin ER 500 mg PO DAILY HPI HPI DM/CONFIRMED: Details: Patient is a 48-year-old male who presents today for a diabetic follow-up. He has a significant past medical history of hypertension, poorly controlled type 2 diabetes, and hyperlipidemia. He was last seen by myself a month ago. Endo: His A1c today is 6.9. Improved from 7.4. He is currently on glipizide 5 mg twice a day, Mounjaro 5 mg weekly, and metformin 500 mg daily. -he is tolerating meds without issues. -He has been checking his blood sugars 1-2 x a day. He states this morning it was 110. He states that he does notice when he eats sugary things he gets tired. He has been really trying to lose weight and walk more. He states that his daughter has been following with a head of digital advertising & integration and that they are on the same sort of program. He is trying to now increase his protein intake and make sure he walks about a miles a day. -he is on an APOLINAR-inhibitor and statin. -He states most people in his family have t2dm. -he was started on Penlac solution. He feels that this is helping. -he is referred for an eye exam and states that he expects to have an appointment soon. Denies any known vision changes. Nephro: following with nephrology for proteinuria and recently had lisinopril increased to 20 mg. CV: Blood pressure today in the office is 134/78. He states his lisinopril was recently increased. He is on lisinopril 20 mg. Cholesterol is controlled Lipitor 10 mg. [facility] Medical History (Updated 01/15/24 @ 08:24 by Ryann Peña PA-C) Hyperlipidemia Uncontrolled type 2 diabetes mellitus with hyperglycemia Morbid (severe) obesity due to excess calories Migraine Snores Asthma, stable Hypertension Surgical History History of tonsillectomy H/O colonoscopy S/P excision of lipoma [place] teeth extracted Family History Other Mental health disorder Social History Housing: House Patient Tobacco Use Status: Former Tobacco user Tobacco use type: Cigarette Years Smoked: 20 e-Cigarette/Vaping Use: Never Used Second Hand Smoke Exposure: No Current occupational status: employed Cognitive needs: No Hearing needs: No Vision needs: No Physical Exam Vital Signs: Last Vital Signs Pulse 77 01/15/24 07:54 BP 134/78 01/15/24 07:54 BMI result Body Mass Index 54.3 Const Orientation/consciousness: patient oriented x3 Neck Neck: Yes no lymphadenopathy Thyroid: Thyroid normal Carotids: no bruits Resp Auscultation: clear to auscultation bilaterally Cardio Rate: regular rate Rhythm: regular rhythm Heart sounds: S1 normal heart sound present and S2 normal heart sound present Peripheral pulses: dorsalis pedis present Neuro General: patient oriented x3, gait normal and no focal motor deficits Extrem Other: Monofilament sensation intact bilaterally. Vibratory sensation intact bilaterally. Skin intact. General: Yes normal to inspection Results Reviewed Results Reviewed: Laboratory Last Values Glucose (Clinic) 178 mg/dL (60-115) H 01/15/24 08:00 Laboratory Tests 06/20/23 07/13/23 10/10/23 09:41 14:29 09:27 Creatinine 0.75 Estimated GFR > 60 Glucose (Clinic) Random Glucose 85 Hgb A1c (Clinic) 11.0 H Hemoglobin A1c % 7.4 H AST 16 ALT 37 Triglycerides 114 Cholesterol 190 LDL Cholesterol, Calc 131 H HDL Cholesterol 37 L 01/15/24 08:00 Creatinine Estimated GFR Glucose (Clinic) 178 H Random Glucose Hgb A1c (Clinic) Hemoglobin A1c % AST ALT Triglycerides Cholesterol LDL Cholesterol, Calc HDL Cholesterol Assessment & Plan Assessment & Plan (1) Controlled type 2 diabetes mellitus with microalbuminuria: Code(s): E11.29 - Type 2 diabetes mellitus with other diabetic kidney complication; R80.9 - Proteinuria, unspecified Category: Medical Plan: Increase Mounjaro. Continue with the glipizide and metformin. Follow up in 3 months. Labs prior to appointment. He will follow up sooner if he is unable to tolerate the higher dose of Mounjaro. We did discuss that the follow up we may discontinue the metformin and glipizide and switch to Jardiance but we will start with the increased dose of Mounjaro 1st. Discussed the importance of weight loss. (2) HTN (hypertension): Code(s): I10 - Essential (primary) hypertension Category: Medical Qualifiers: Hypertension type: primary hypertension Qualified Code(s): I10 - Essential (primary) hypertension Plan: Continue current regimen (3) Hyperlipidemia: Code(s): E78.5 - Hyperlipidemia, unspecified Category: Medical Qualifiers: Hyperlipidemia type: pure hypercholesterolemia Qualified Code(s): E78.00 - Pure hypercholesterolemia, unspecified Plan: Continue atorvastatin. We will monitor lipids and LFTs. Orders: Orders AMB Hemoglobin A1c Today E11.65 - Type 2 diabetes mellitus with hyperglycemia, Z13.9 - Encounter for screening, unspecified Medications: New tirzepatide (Mounjaro) 7.5 mg (0.5 mL) subcut QWEEK 2 mL 3RF Coding Level of Care Code Est Pt Level 4 (23485) Complex EM visit Add On G2211 Diagnoses Controlled type 2 diabetes mellitus with microalbuminuria E11.29; R80.9 Primary hypertension I10 Hypertension type: primary hypertension Pure hypercholesterolemia E78.00 Hyperlipidemia type: pure hypercholesterolemia
[2024-01-15 07:54] VITALS: BP 134/78; PULSE 77; BMI 54.3
[2024-01-15 08:04] LABS: Glucose, Whole Blood 178 mg/dL (60-115)
== END 2024-01-15 08:23 | disposition home or self-care (01) ==
PROVIDERS: PCP Nurse Practitioner Family; Visit Provider Physician Assistant
DX: E11.29 Type 2 diabetes mellitus with other diabetic kidney complication (principal); R80.9 Proteinuria, unspecified; I10 Essential (primary) hypertension; E78.00 Pure hypercholesterolemia, unspecified; Z13.9 Encounter for screening, unspecified; E11.65 Type 2 diabetes mellitus with hyperglycemia

== ENCOUNTER → 2024-01-15 07:29 | Outpatient (BNVA) | payer BC, SELFPAY | PROVIDERS: PCP Nurse Practitioner Family; Visit Provider Physician Assistant | DX: E11.29 Type 2 diabetes mellitus with other diabetic kidney complication (principal); R80.9 Proteinuria, unspecified; I10 Essential (primary) hypertension; E78.00 Pure hypercholesterolemia, unspecified; Z79.899 Other long term (current) drug therapy | CPT/HCPCS: 82947; 83036 ==

== ENCOUNTER 2024-01-31 06:58 | Outpatient (AMB) | payer BC, SELFPAY ==
--- NOTE | 2024-01-31 07:07 | A.OFFVIS_ITS ---
Intake Intake Visit Reasons: 60 min Bilingual Sales Consultant Required: No Accompanied by: Self / Same As Patient Allergies No Known Allergies Allergy (Verified 01/15/24 07:58) HPI Comprehensive Diabetes Asmnt Most Recent Diabetes Results: Microalb/Creat Ratio 203.7 ug/mg cr (<30) H 10/10/23 Cholesterol 190 mg/dL (<200) 06/20/23 HDL Cholesterol 37 mg/dL (>40) L 06/20/23 Triglycerides 114 mg/dL (<150) 06/20/23 Creatinine 0.75 mg/dL (0.5-1.4) 10/10/23 Blood Urea Nitrogen 15 mg/dL (9-16) 10/10/23 Sodium 143 mmol/L (135-145) 10/10/23 Potassium 3.6 mmol/L (3.3-5.1) 10/10/23 Chloride 108 mmol/L (96-108) 10/10/23 Carbon Dioxide 28 mmol/L (22-29) 10/10/23 Calcium 9.3 mg/dL (8.4-10.2) 10/10/23 AST 16 U/L (5-37) 06/20/23 ALT 37 U/L (0-40) 06/20/23 Total Protein 6.9 g/dL (6.5-8.0) 06/20/23 Albumin 4.2 g/dL (3.5-5.0) 06/20/23 [facility] Medical History (Updated 01/15/24 @ 08:24 by Ryann Peña PA-C) Hyperlipidemia Uncontrolled type 2 diabetes mellitus with hyperglycemia Morbid (severe) obesity due to excess calories Migraine Snores Asthma, stable Hypertension Surgical History History of tonsillectomy H/O colonoscopy S/P excision of lipoma [place] teeth extracted Family History Other Mental health disorder Social History Housing: House Patient Tobacco Use Status: Former Tobacco user Tobacco use type: Cigarette Years Smoked: 20 e-Cigarette/Vaping Use: Never Used Second Hand Smoke Exposure: No Current occupational status: employed Cognitive needs: No Hearing needs: No Vision needs: No Assessment & Plan Assessment & Plan (1) Controlled type 2 diabetes mellitus with microalbuminuria: Code(s): E11.29 - Type 2 diabetes mellitus with other diabetic kidney complication; R80.9 - Proteinuria, unspecified Plan: Diabetes self-management education and support participation record Assessment/scale: 1= needs instructed? 2= needs review? 3= comprehend keep point? 4= demonstrates understanding/ competent? NC= Not Covered Topics Learning Objective: Initial visit Initial or post srvc Initial or post srvc Initial or post srvc Initial or post srvc Initial or post srvc Post srvc Comments Pre Edu-assessment/plan Outcome or reassess Outcome or reassess Outcome or reassess Outcome or reassess Outcome or reassess Outcome or reassess Diabetes pathophysiology 1 3 Healthy eating 2 3 Being active 1 3 Taking medication 1 3 Monitoring glucose 2 2 Acute complication 1 2 Chronic complicated 2 3 Lifestyle and healthy coping 1 3 Diabetes distress in support 1 3 ?Diabetes pathophysiology: ?Defined diabetes med identify own type of diabetes; list 3 options for treating diabetes Healthy eating: ?Described effect of type, amount and ?timing of food on blood glucose; list 3 methods for planning meal Being active: ?State effect of exercise on blood glucose level Taking medication: ?State effect of diabetes medications on diabetes; name diabetes medications taking, action and side effects Monitoring glucose: ?Identify recommended blood glucose targets and personal target Acute complication: ?List symptoms and treatment of hyper and hypoglycemia, DKA, sick day guidelines and guidelines for severe weather or situations of crisis and diabetes supply manage Chronic complication: ?To find the relationship of blood glucose levels to long- term complications of diabetes in screening and preventative measures Lifestyle and healthy coping: ?Described lifestyle and healthy coping strategies to rule out diabetes self-management Diabetes to stress and support: ?Recognize Diabetes to stress and be able to identified support options Learning objectives: Learning objectives: The patient was provided with verbal and written education on the following topics as outlined below. The patient met all learning objectives and was able to verbalize understanding and provide teach back of education topics discussed . The patient was provided with the opportunity to ask questions and all questions were answered. 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 Reports that he has a tear in his right meniscus which makes physical activity more challenging Patient questions/concerns, patient's last A1c on 01/14 6.9% Exercise Medical clearance Effect of exercise on blood sugar Start slowly and gradually increase pace/duration over time Goal amount of exercise Checking blood glucose/have a source of carbs with you Diabetes Complications: ?Nephropathy :Kidney Disease ?diabetes can damage the kidneys, which is not only can cause them to fail but can make them lose their ability to filter waste from the blood? ?Retinopathy: Eye complications ?Retinopathy? is the commonest long-term complication of diabetes. It is leading cause of blindness Besides, Retinopathy- People with diabetes? are also prone to cataract and Glaucoma. ?Neuropathy: Nerve damage -It involves temporary or permanent damage to nerve tissue. Nerve tissue gets injured mainly due to decreased blood flow and rise in blood glucose levels. This damage can lead to pain , or loss of sensation it can also include sexual dysfunction in both men and women ? Infections poor healing: People with diabetes? have increased susceptibility to various infections, such as? pneumonias, pyelonephritis, carbuncles and diabetic ulcers. This may be due to poor blood supply, reduced cellular immunity or hyperglycemia. ?Heart Disease And Stroke: People with diabetes are four times more prone to develop Heart disease than those who do not have diabetes ?Depression: Feeling down once in awhile is normal, but some people feel sadness that just won't go away. Life for them seems hopeless. Feeling this way most of the day for two weeks or more is a sign of serious depression ?Gum Disease: People get gum disease when plaque destroys the gums and bone around the teeth. People with diabetes can get gum disease from having high blood glucose levels for a long time Lifestyle * Work * Travel * Stress management * Problem solving Know your goals * A1C * Blood sugar targets * Blood pressure * Cholesterol/LDL Urine microalbumin Smart Goal Assessment: Patient did not bring meter to today's visit Pt met goal less than 25% New Goal:? Patient will continue to increase stretching exercises he received from physical therapy to 4-5 times weekly Educational Materials: The patient was provided with the following written educational materials: ADCES 7 Healthy Behaviors Reducing Risks handout Patient Response to instructions: Comprehension of Instructions: Good Readiness to make changes: action How confident they feel about making changes: Positive Letter of completion of diabetes Education program will be sent to referring provider Portions of this note were created using voice recognition software, please excuse any words or phrases that may have been misinterpreted. (2) Uncontrolled type 2 diabetes mellitus with hyperglycemia: Code(s): E11.65 - Type 2 diabetes mellitus with hyperglycemia Plan: Patient Instructions: Include regular daily activity. ADA recommends 30 minutes of exercise 5 days a week. Weight loss talk to PCP or Sleeve Setter Safety Stitch before starting new plan. Test blood sugar as directed; Fasting and 2hpp largest meal. Watch trends in r esults. Utilize results and to assess how food, physical activity and medications affect blood sugar results. Bring glucometer or CGM to next visit. Be knowledgeable about diabetes medication, its action, side effects, efficacy, toxicity, prescribed dosage, appropriate timing and frequency of administration, effect of missed and delayed doses and instructions for storage, travel and safety. Problem solving techniques to monitor hypo/hyperglycemia episodes and treatments. Reduce risk reduction behaviors, smoking cessation, regular eye, foot and dental examinations. Coding Level of Care Code Est Pt Level 1 (13648) Diagnoses Controlled type 2 diabetes mellitus with microalbuminuria E11.29; R80.9 Uncontrolled type 2 diabetes mellitus with hyperglycemia E11.65
== END 2024-01-31 07:33 | disposition home or self-care (01) ==
PROVIDERS: PCP Nurse Practitioner Family; Visit Provider Registered Nurse Diabetes Educator
DX: E11.29 Type 2 diabetes mellitus with other diabetic kidney complication (principal); R80.9 Proteinuria, unspecified; E11.65 Type 2 diabetes mellitus with hyperglycemia

== ENCOUNTER → 2024-01-31 06:58 | Outpatient (BNVA) | payer BC, SELFPAY | PROVIDERS: PCP Nurse Practitioner Family; Visit Provider Registered Nurse Diabetes Educator | DX: E11.65 Type 2 diabetes mellitus with hyperglycemia (principal); E11.29 Type 2 diabetes mellitus with other diabetic kidney complication; R80.9 Proteinuria, unspecified | CPT/HCPCS: 99211 ==

== ENCOUNTER 2024-03-27 09:55 | Outpatient (AMB) | payer BC, SELFPAY ==
--- NOTE | 2024-03-27 10:26 | HO.NEPHOV_ITS ---
Vital Signs 03/27/24 10:27 Height 5 ft 7 in Weight 340 lb 2 oz BMI 53.3 BP 110/70 Blood Pressure Location Lt brachial Position Sitting Pulse 94 Pulse Source Pulse Oximeter Pulse Oximetry (%) 95 Oxygen Delivery Method Room Air Intake Visit Reasons: Hypertension-Conf Customer Service Sales Consultant Required: No Accompanied by: Self / Same As Patient Allergies No Known Allergies Allergy (Verified 03/27/24 10:27) HPI Comments Details: I had the pleasure of seeing Kali in consultation for proteinuria. 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 He has been a diabetic with a strong family history of it. He is found to have proteinuria. He denies any carotid stenosis, peripheral arterial disease, renal artery stenosis, smoking, drug use, renal calculi, coronary artery disease, congestive heart failure, CVA. He has been taking APOLINAR inhibitor. He claims to be trying to lose weight. He has no pedal edema. He used to take nonsteroidal anti-inflammatories but not regularly. He has no history of hepatitis or HIV. He denies nausea, vomiting, diarrhea, chest pain, shortness of breath, paroxysmal nocturnal dyspnea, orthopnea, pedal edema, orthostatic symptoms. He currently feels well. His renal functions are normal. [facility] Medical History (Updated 02/23/24 @ 18:29 by Warner Burns, [facility]) Obstructive sleep apnea Hyperlipidemia Uncontrolled type 2 diabetes mellitus with hyperglycemia Morbid (severe) obesity due to excess calories Migraine Snores Asthma, stable Hypertension Surgical History History of tonsillectomy H/O colonoscopy S/P excision of lipoma [place] teeth extracted Family History Other Mental health disorder Social History Housing: House Patient Tobacco Use Status: Former Tobacco user Tobacco use type: Cigarette Years Smoked: 20 e-Cigarette/Vaping Use: Never Used Second Hand Smoke Exposure: No Current occupational status: employed Cognitive needs: No Hearing needs: No Vision needs: No Review of Systems Const All systems reviewed & are unremarkable except as noted in HPI and below Physical Exam Vital Signs: Last Vital Signs Pulse 94 03/27/24 10:27 BP 110/70 03/27/24 10:27 Pulse Ox 95 03/27/24 10:27 Oxygen Delivery Method Room Air 03/27/24 10:27 BMI result Body Mass Index 53.3 Const General: comfortable and no acute distress Orientation/consciousness: patient oriented x3 HEENT Head: Yes normocephalic Mouth: Normal oral and palatal mucosa present Eyes EOM: EOMs intact bilaterally Neck Neck: Yes supple Resp Auscultation: clear to auscultation bilaterally Cardio Jugular venous distension: no JVD Rate: regular rate GI Palpation (GI): Soft to palpation Auscultation: normal bowel sounds General: Yes no CVA tenderness Back/Spine/Pelvis Back: no CVA tenderness Skin General skin exam: no rashes or lesions noted Neuro General: patient oriented x3 and moves all extremities Extrem General: Yes no pedal edema Results Reviewed Nephrology Results: No Data to Display Assessment & Plan Assessment & Plan (1) Microalbuminuria: Code(s): R80.9 - Proteinuria, unspecified Category: Medical (2) HTN (hypertension): Code(s): I10 - Essential (primary) hypertension Category: Medical Qualifiers: Hypertension type: primary hypertension Qualified Code(s): I10 - Essential (primary) hypertension Plan Kali has proteinuria most likely due to diabetes mellitus. He has high BMI which also has put him at risk for secondary FSGS. He has no history of any hepatitis. He does not give any symptomatology to suggest any active glomerular pathology. He does not take any PPI or nonsteroidal anti-inflammatories regularly. He should continue lisinopril 10 mg b.i.d. I have ordered follow-up urine studies. His renal functions are normal. He clearly will benefit from more weight loss. He will benefit from gastric sleeve surgery. All these have been explained in detail. All questions answered and follow-up appointment given Orders: Orders Protein Creatinine Ratio, Ur 4 Months R80.9 - Proteinuria, unspecified Creatinine 4 Months R80.9 - Proteinuria, unspecified Blood Urea Nitrogen 4 Months R80.9 - Proteinuria, unspecified Electrolytes 4 Months R80.9 - Proteinuria, unspecified Coding Level of Care Code Est Pt Level 4 (64994) Diagnoses Microalbuminuria R80.9 Primary hypertension I10 Hypertension type: primary hypertension
[2024-03-27 10:27] VITALS: BP 110/70; PULSE 94; O2SAT 95; BMI 53.3
== END 2024-03-27 10:45 | disposition home or self-care (01) ==
PROVIDERS: PCP Nurse Practitioner Family; Visit Provider Internal Medicine Nephrology
DX: R80.9 Proteinuria, unspecified (principal); I10 Essential (primary) hypertension
CPT/HCPCS: 99214

== ENCOUNTER 2024-04-15 07:42 | Outpatient (AMB) | payer BC, SELFPAY ==
[2024-04-15 07:47] VITALS: BP 108/72; PULSE 84; O2SAT 94; BMI 53.3
--- NOTE | 2024-04-15 07:47 | MHC.OFFVIS ---
Vital Signs 04/15/24 07:47 Height 5 ft 7 in Weight 340 lb 6.299 oz BMI 53.3 BP 108/72 Blood Pressure Location Lt brachial Position Sitting Pulse 84 Pulse Source Pulse Oximeter Pulse Oximetry (%) 94 Oxygen Delivery Method Room Air Intake Visit Reasons: T2DM Intake Note: Patient present today for Type 2 Diabetes Mellitus Last Diabetic eye exam: 10/2023 Last Podiatry Visit: Doesn't have one Random Glucose: 129 mg/dl HgA1C: 6.1% Cloth Tearer Required: No Accompanied by: Self / Same As Patient Allergies No Known Allergies Allergy (Verified 04/15/24 07:56) Medication List - Last Reconciled 04/15/24 by Ryann Peña PA-C acetaminophen (Tylenol Extra Strength) 500 mg PO Q6H PRN aspirin 81 mg PO DAILY atorvastatin 10 mg PO BEDTIME blood sugar diagnostic ([employer] Technology[employer] Verio test strips) Test blood sugar once a day blood-glucose meter ([employer] Verio Flex Meter) As directed cholecalciferol (vitamin D3) 50 mcg PO DAILY ciclopirox 8% 1 appl topical DAILY 4 weeks clindamycin phosphate 1% 1 appl topical BEDTIME 20 days lancets ([employer] Delica Plus Lancet) Test blood sugar once a day lisinopril 10 mg PO BID 90 days metformin ER 500 mg PO DAILY tirzepatide (Mounjaro) 7.5 mg (0.5 mL) subcut QWEEK HPI HPI T2DM: Details: Patient is a 49-year-old male who presents today for a diabetic follow-up. He has a significant past medical history of hypertension, poorly controlled type 2 diabetes, and hyperlipidemia. He was last seen by myself a month ago. Endo: His last A1c was 6.9 and today is 6.1. He is currently on glipizide 5 mg twice a day, Mounjaro 7.5 mg weekly, and metformin 500 mg daily. -he is tolerating meds without issues other than sometimes gets constipated with the mounjaro. It improves/resolves with colace. -He has been checking his blood sugars 1-2 x a day. He states this morning it was 110. He states that his daughter has been following with a packaging machine supplies distributor and that they are on the same sort of program. He is trying to now increase his protein intake and make sure he walks about a mile a day. -he is on an APOLINAR-inhibitor and statin. -He states most people in his family have t2dm. Nephro: following with nephrology for proteinuria and lisinopril 20 mg. CV: Blood pressure today in the office is 108/72. He is on lisinopril 20 mg. Cholesterol is controlled Lipitor 10 mg. [facility] Medical History (Updated 02/23/24 @ 18:29 by Warner Burns, [facility]) Obstructive sleep apnea Hyperlipidemia Uncontrolled type 2 diabetes mellitus with hyperglycemia Morbid (severe) obesity due to excess calories Migraine Snores Asthma, stable Hypertension Surgical History History of tonsillectomy H/O colonoscopy S/P excision of lipoma [place] teeth extracted Family History Other Mental health disorder Social History Housing: House Patient Tobacco Use Status: Former Tobacco user Tobacco use type: Cigarette Years Smoked: 20 e-Cigarette/Vaping Use: Never Used Second Hand Smoke Exposure: No Current occupational status: employed Cognitive needs: No Hearing needs: No Vision needs: No Physical Exam Vital Signs: Last Vital Signs Pulse 84 04/15/24 07:47 BP 108/72 04/15/24 07:47 Pulse Ox 94 04/15/24 07:47 Oxygen Delivery Method Room Air 04/15/24 07:47 BMI result Body Mass Index 53.3 Const Orientation/consciousness: patient oriented x3 Neck Neck: Yes no lymphadenopathy Thyroid: Thyroid normal Carotids: no bruits Resp Auscultation: clear to auscultation bilaterally Cardio Rate: regular rate Rhythm: regular rhythm Heart sounds: S1 normal heart sound present and S2 normal heart sound present Peripheral pulses: dorsalis pedis present Neuro General: patient oriented x3, gait normal and no focal motor deficits Extrem Other: Monofilament sensation intact bilaterally. Vibratory sensation intact bilaterally. Skin intact. General: Yes normal to inspection Results AMB Hemoglobin A1c AMB Hemoglobin A1c 6.1 % Last Edit by MARY Carvalho on 04/15/24 08:10 Results Reviewed Results Reviewed: Laboratory Last Values Glucose (Clinic) 129 mg/dL (60-115) H 04/15/24 07:58 Laboratory Tests 06/20/23 10/10/23 10/10/23 09:41 09:26 09:27 Creatinine 0.75 Estimated GFR > 60 Glucose (Clinic) Hgb A1c (Clinic) AST 16 ALT 37 Alkaline Phosphatase 78 Triglycerides 114 Cholesterol 190 LDL Cholesterol, Calc 131 H HDL Cholesterol 37 L TSH 1.50 Urine Creatinine 255.16 Urine Microalbumin 520.0 Microalb/Creat Ratio 203.7 H 01/15/24 04/15/24 08:03 07:58 Creatinine Estimated GFR Glucose (Clinic) 129 H Hgb A1c (Clinic) 6.9 H AST ALT Alkaline Phosphatase Triglycerides Cholesterol LDL Cholesterol, Calc HDL Cholesterol TSH Urine Creatinine Urine Microalbumin Microalb/Creat Ratio Assessment & Plan Assessment & Plan (1) Controlled type 2 diabetes mellitus with microalbuminuria: Code(s): E11.29 - Type 2 diabetes mellitus with other diabetic kidney complication; R80.9 - Proteinuria, unspecified Category: Medical Plan: d/c glipizide continue mounjaro and metformin refilled testing supplies today (2) HTN (hypertension): Code(s): I10 - Essential (primary) hypertension Category: Medical Qualifiers: Hypertension type: primary hypertension Qualified Code(s): I10 - Essential (primary) hypertension Plan: wnl continue current plan (3) Hyperlipidemia: Code(s): E78.5 - Hyperlipidemia, unspecified Category: Medical Qualifiers: Hyperlipidemia type: pure hypercholesterolemia Qualified Code(s): E78.00 - Pure hypercholesterolemia, unspecified Plan: will check lipids and lfts Orders: Orders AMB Hemoglobin A1c Today E11.29 - Type 2 diabetes mellitus with other diabetic kidney complication, R80.9 - Proteinuria, unspecified, Z13.9 - Encounter for screening, unspecified Medications: New blood sugar diagnostic (OneTouch Ultra Test strips) Use BID As directed to monitor blood glucose 100 ea 3RF lancets (OneTouch UltraSoft 2 Lancet) use daily As directed to monitor blood sugars 100 ea 2RF blood-glucose meter (OneTouch Ultra2 Meter) Use daily As directed to monitor blood sugars. 1 ea 0RF Discontinued lancets (OneTouch Delica Plus Lancet) Discontinued Reason: Doctor's Order Test blood sugar once a day 100 ea 1RF blood-glucose meter (OneTouch Verio Flex Meter) Discontinued Reason: Duplicate As directed 1 ea 0RF E11.9 - Type 2 diabetes mellitus without complications blood sugar diagnostic (OneTouch Verio test strips) Discontinued Reason: Duplicate Test blood sugar once a day 100 ea 1RF E11.9 - Type 2 diabetes mellitus without complications Coding Level of Care Code Est Pt Level 4 (24879) Complex EM visit Add On [id number] Diagnoses Controlled type 2 diabetes mellitus with microalbuminuria E11.29; R80.9 Primary hypertension I10 Hypertension type: primary hypertension Pure hypercholesterolemia E78.00 Hyperlipidemia type: pure hypercholesterolemia
[2024-04-15 08:01] LABS: Glucose, Whole Blood 129 mg/dL (60-115)
== END 2024-04-15 08:21 | disposition home or self-care (01) ==
PROVIDERS: PCP Nurse Practitioner Family; Visit Provider Physician Assistant
DX: E11.29 Type 2 diabetes mellitus with other diabetic kidney complication (principal); R80.9 Proteinuria, unspecified; I10 Essential (primary) hypertension; E78.00 Pure hypercholesterolemia, unspecified; Z13.9 Encounter for screening, unspecified

== ENCOUNTER → 2024-04-15 07:42 | Outpatient (BNVA) | payer BC, SELFPAY | PROVIDERS: PCP Nurse Practitioner Family; Visit Provider Physician Assistant | DX: E11.29 Type 2 diabetes mellitus with other diabetic kidney complication (principal); R80.9 Proteinuria, unspecified; I10 Essential (primary) hypertension; E78.00 Pure hypercholesterolemia, unspecified; Z79.84 Long term (current) use of oral hypoglycemic drugs; Z79.899 Other long term (current) drug therapy | CPT/HCPCS: 82947; 83036 ==

== ENCOUNTER 2024-07-02 07:54 | Outpatient (AMB) | payer BC, SELFPAY ==
--- NOTE | 2024-07-02 08:14 | A.OFFPC_ITS ---
Vital Signs 07/02/24 08:15 Height 5 ft 7 in Weight 330 lb BMI 51.7 BP 118/66 Blood Pressure Location Lt brachial Position Sitting Respiration 18 Pulse 86 Pulse Source Pulse Oximeter Temp 98.3 F Temp Source Oral Pulse Oximetry (%) 96 Oxygen Delivery Method Room Air Intake Visit Reasons: Annual PE Intake Note: Pt is here today for PE. Allergies No Known Allergies Allergy (Verified 07/02/24 08:40) Medication List - Last Reconciled 07/02/24 by MANDY Larson-JACKLYN acetaminophen (Tylenol Extra Strength) 500 mg PO Q6H PRN aspirin 81 mg PO DAILY atorvastatin 10 mg PO BEDTIME blood sugar diagnostic (Flurryuch Ultra Test strips) Use BID As directed to monitor blood glucose blood-glucose meter (Flurryuch Ultra2 Meter) Use daily As directed to monitor blood sugars. cholecalciferol (vitamin D3) 50 mcg PO DAILY ciclopirox 8% 1 appl topical DAILY 4 weeks clindamycin phosphate 1% 1 appl topical BEDTIME 20 days lancets (Flurryuch UltraSoft 2 Lancet) use daily As directed to monitor blood sugars lisinopril 10 mg PO BID 90 days metformin ER 500 mg PO DAILY tirzepatide (Mounjaro) 7.5 mg (0.5 mL) subcut QWEEK Tobacco use date assessed: 07/02/24 Dental Screening Dental Screen Date: 07/02/24 Did you have a dental visit in the last 12 months?: No Did you have a dental problem in the last 6 months where you did not have access to dental care?: No Was dental information given to patient?: Patient declined HPI Annual PE HPI Details History of Present Illness The patient is a 49-year-old male presenting for a wellness visit and physical examination. He has type 2 diabetes mellitus and follows up regularly with endocrinology, and he is also under the care of a contractor broomcorn threshing. He undergoes regular eye examinations related to his diabetes management. The patient confirmed that his colon cancer screening is current, with a plan for the next screening in January of this year. The patient denied any symptoms such as chest pain, shortness of breath, abdominal discomfort, hematochezia, constipation, or diarrhea. Additionally, he reported no suicidal or homicidal thoughts, nor did he experience polyuria, polydipsia, or neuropathy. Health Maintenance - Colon cancer screening is up to date; next screening due between now and April 2025, with a referral planned for January. - Regular consultations with endocrinolo gy and nephrology for diabetes management. - Routine eye examinations as part of di abetes care. Social History - Reports being under the care of multip le specialists due to his chronic condition (diabetes). - No further specific details regarding employment, housing, family status, or lifestyle were discussed. Review of Systems - Cardiovascular: Denies chest pain. - Respiratory: Denies shortness of breat h. - Gastrointestinal: Denies abdominal mariel n, blood in stool, constipation, diarrhea. - Neurological: Denies neuropathy. - Endocrine: Denies polyuria, polydipsia . - Psychiatric: Denies suicidal ideation, homicidal ideation. Physical Exam General: Morbidly obese Orientation: Patient oriented x3 Limitations: No limitations Head: Normal to inspection Ears: Hearing grossly normal bilaterally Nose: Normal external nose present Face and sinus: Normal facial exam Eyes: Appearance normal, both eyes and all related structures Neck: Normal visual inspection and Yes full ROM Respiratory: Normal respiratory effort and able to speak in complete sentences. Clear to auscultation bilaterally Cardiovascular: Regular rate and rhythm. Normal S1 and S2 GI: Normal to inspection. Soft to palpation and nontender : testicles without lesions, no signs of hernia Skin: No rashes or lesions noted Neuro: Patient oriented x3 Extremities: Normal to inspection, feet intact bilat, onychomycosis noted bilat, + sensation with use of monofilament Results Plan During this wellness visit, I reviewed the patient's management of type 2 diabetes mellitus, which is actively monitored under the care of an siebel crm developer and contractor broomcorn threshing. I stressed maintaining regular specialist consultations and routine eye exams to ensure comprehensive diabetes management. The patient's colon cancer screening is up to date, and a referral for the next screening will be issued in January. He is noted to be obese, and lifestyle modifications are vital for his health maintenance. Discussion Notes I discussed the patient's ongoing management of type 2 diabetes mellitus, emphasizing the importance of regular follow-ups with his siebel crm developer and contractor broomcorn threshing to monitor and manage his condition. I highlighted the beneficial aspects of his current health maintenance practices, such as routine eye examin ations and colon cancer screenings. Additionally, I informed him of the plan to issue a referral for his next colon cancer screening closer to January. I advised on the significance of lifestyle changes, though specific steps were not detailed in the conversation. The patient agreed with the suggested follow-ups and screenings. Patient Instructions - Continue regular follow-ups with your siebel crm developer and contractor broomcorn threshing. - Maintain routine eye examinations. - Look forward to a referral for colon c ancer screening in January. - Follow a healthy lifestyle to manage w eight and overall health. [facility] Medical History Obstructive sleep apnea Hyperlipidemia Uncontrolled type 2 diabetes mellitus with hyperglycemia Morbid (severe) obesity due to excess calories Migraine Snores Asthma, stable Hypertension Surgical History History of tonsillectomy H/O colonoscopy S/P excision of lipoma [place] teeth extracted Family History Other Mental health disorder Social History Housing: House Patient Tobacco Use Status: Former Tobacco user Tobacco use type: Cigarette Years Smoked: 20 e-Cigarette/Vaping Use: Never Used Second Hand Smoke Exposure: No Current occupational status: employed Cognitive needs: No Hearing needs: No Vision needs: Yes Questionnaire PHQ-9 Over the last 2 weeks, how often have you been bothered by any of the following problems? 1. Little interest or pleasure in doing things: not at all 2. Feeling down, depressed, or hopeless: not at all 3. Trouble falling or staying asleep, or sleeping too much: several days 4. Feeling tired or having little energy: not at all 5. Poor appetite or overeating: not at all 6. Feeling bad about yourself - or that you are a failure or have let yourself or your family down: not at all 7. Trouble concentrating on things, such as reading the newspaper or watching television: not at all 8. Moving or speaking so slowly that other people could have noticed. Or the opposite - being so fidgety or restless that you have been moving around a lot more than usual: not at all 9. Thoughts that you would be better off or of hurting yourself in some wa y: not at all Total score: 1 Depression Screening Interpretation: Negative Depression Screening Done: Yes 48766 - PHQ-9 Billing: Yes Source: Developed by Drs. Tom Baptiste, Vivian Jaimes, Juaquin Meneses and colleagues, with an educational carmelo from [employer]. Thrive Questionnaire Date Thrive assessed: 07/02/24 I am a: Patient What is your living situation today?: I have a steady place to live Within the past 12 months, did the food you bought not last and you didn't have the money to get more?: Never true Within the past 12 months, did you worry whether your food would run out before you got money to buy more?: Never true Do you have trouble paying for medicines?: No Do you have trouble getting transportation to medical appointments?: No Do you have trouble paying your heating and electricity bill?: No Do you have trouble taking care of your child, family member or friend?: No Do you have trouble with day-to-day activities such as bathing, preparing meals, shopping, managing finances, etc.?: No Are you currently unemployed and looking for a job?: No Are you interested in more education?: No Please select the resources that you would like help with: None Currently or been in a relationship where the following occur: No concerns reported THRIVE Score: 0 AUDIT C Alcohol Use Questionnaire (AUDIT-C) 1. How often do you have a drink containing alcohol?: Never 3. How often do you have six or more drinks on one occasion?: Never Total Score: 0 Score Reviewed/Action Taken: Yes SANDY-7 AMB Questionnaire SANDY-7 Date SANDY - 7 assessed: 07/02/24 Feeling nervous, anxious, or on edge: 0 = Not at all Not being able to stop or control worryin = Not at all Worrying too much about different things: 0 = Not at all Trouble relaxin = Several days Being so restless that it is hard to sit still: 0 = Not at all Becoming easily annoyed or irritable: 0 = Not at all Feeling afraid as if something awful might happen: 0 = Not at all Total SANDY-7 score (0-4 normal; 5-9 mild; 10-14 moderate; 15-21 severe): 1 Source: Developed by Vivian Mistry, Juaquin Meneses and colleagues, with an educational carmelo from [employer]. SANDY-7 Assessment Billing SANDY-7 Assessment Tool: SANDY-7 Assessment 78671 Physical exam (Primary Care) Vital Signs: Last Vital Signs Temp 98.3 F 07/02/24 08:15 Pulse 86 07/02/24 08:15 Resp 18 07/02/24 08:15 BP 118/66 07/02/24 08:15 Pulse Ox 96 07/02/24 08:15 Oxygen Delivery Method Room Air 07/02/24 08:15 BMI result Body Mass Index 51.7 Tobacco/Smoking Status: Tobacco use Status Tobacco use date assessed 07/02/24 07/02/24 08:19 Patient Tobacco Use Status Former Tobacco user 07/02/24 08:15 Tobacco use type Cigarette 07/02/24 08:15 e-Cigarette/Vaping Use Never Used 07/02/24 08:15 PHQ-9: PHQ-9 Score PHQ-9: Total score 1 07/02/24 08:30 Depression Screening Interpretation: Negative Thrive Assessment: Date of Thrive Assessment Date Thrive assessed 07/02/24 07/02/24 08:19 Currently or been in a relationship where the following occur: No concerns reported Results AMB Hemoglobin A1c AMB Hemoglobin A1c 6.0 % Last Edit by MARY Dumont on 07/02/24 08:3 2 Results Reviewed Results Reviewed: Laboratory Last Values Hgb A1c (Clinic) 6.0 % (4.0-6.0) 07/02/24 08:24 Coding Level of Care Code Est Pt Prev Care 40-64y(60081) Diagnoses Screening for colon cancer Z12.11 Physical exam Z00.00 Screening for prostate cancer Z12.5 Additional Codes SANDY-7 Assessment Billing - SANDY-7 Assessment Tool: SANDY-7 Assessment 02284 ([id number]) PHQ-9 - 83789 - PHQ-9 Billing: Yes ([id number]) Assessment & Plan Assessment & Plan (1) Screening for colon cancer: Code(s): Z12.11 - Encounter for screening for malignant neoplasm of colon Category: Medical (2) Physical exam: Code(s): Z00.00 - Encounter for general adult medical examination without abnormal findings Category: Medical (3) Screening for prostate cancer: Code(s): Z12.5 - Encounter for screening for malignant neoplasm of prostate Category: Medical Plan . Orders: Orders Complete Blood Count Auto Diff Today Z00.00 - Encounter for general adult medical examination without abnormal findings Comprehensive [place]. Panel Fast Today Z00.00 - Encounter for general adult medical examination without abnormal findings Prostate Specific Antigen Scr Today Z12.5 - Encounter for screening for m alignant neoplasm of prostate AMB Hemoglobin A1c Today Z13.9 - Encounter for screening, unspecified TSH reflex Free T4 Today Z00.00 - Encounter for general adult medical examination without abnormal findings UA CC w/rflx Micro + Cult Today Z00.00 - Encounter for general adult medical examination without abnormal findings Lipid Panel Today Z00.00 - Encounter for general adult medical examination without abnormal findings Referrals Gastroenterology Referral Z12.11 - Encounter for screening for malignant neoplasm of colon Medications: Refilled clindamycin phosphate 1% 1 appl topical BEDTIME 20 days 60 grams 0RF
[2024-07-02 08:15] VITALS: BP 118/66; PULSE 86; RESP 18; TEMP 36.8; O2SAT 96; BMI 51.7
== END 2024-07-02 08:50 | disposition home or self-care (01) ==
LOC: HO.HMCC 07:54
PROVIDERS: PCP Nurse Practitioner Family; Visit Provider Nurse Practitioner Family
DX: Z12.11 Encounter for screening for malignant neoplasm of colon (principal); Z00.00 Encounter for general adult medical examination without abnormal findings; Z12.5 Encounter for screening for malignant neoplasm of prostate; Z13.9 Encounter for screening, unspecified

== ENCOUNTER 2024-07-02 07:54 | Outpatient (REF) | payer BC, SELFPAY ==
[2024-07-02 10:12] LABS: MANUAL DIFF FLAG NO
[2024-07-02 10:23] LABS: Appearance Urine Clear; Color Urine Yellow; Glucose Urine UA Negative (Negative); Leukocyte Esterase Urine Negative (Negative); Nitrite Urine Negative (Negative); PH 5.5 (5.0-9.0); Specific Gravity - Urine >= 1.030 (1.005-1.025); UMIC TRIGGER UACC YES; Urine Blood Negative (Negative); Urine Ketones Negative (Negative); Urine Protein 100 (2+) mg/dL (Neg-Trace)
[2024-07-02 10:27] LABS: Bacteria Urine None Seen (None Seen); Hyaline Casts Urine 0-2 /LPF (0-2); RBC Urine 0-2 /HPF (0-2); Squamous Epithelial Cell Urine 0-2 /HPF (0-2); WBC Urine 0-5 /HPF (0-5)
[2024-07-02 10:28] LABS: Basophils Percent Auto 0.5 % (0-2); Eosinophils Absolute Auto 0.2 X10*3/uL (0.0-0.4); Hematocrit 43.7 % (42.0-52.0); Hemoglobin 14.5 g/dl (14.0-18.0); Imm Gran Abs Auto 0.02 X10*3/uL (0.00-0.03); Imm Gran Pct Auto 0.3 % (0.0-0.4); Lymphocytes Absolute Auto 2.2 X10*3/uL (1.2-4.9); Lymphocytes Percent Auto 36.8 % (20-40); Mean Corpuscular HGB Conc 33.2 g/dl (31.0-36.0); Mean Corpuscular Hemoglobin 28.5 pg (27.0-33.0); Mean Corpuscular Volume 85.9 fL (80.0-98.0); Mean Platelet Volume 10.7 fL (9.4-12.4); Monocytes Absolute Auto 0.4 X10*3/uL (0.1-1.2); Monocytes Percent Auto 5.9 % (2-11); Neutrophils Absolute Auto 3.3 x10*3/uL (2.0-8.3); Neutrophils Percent Auto 53.5 % (45-73); Platelet Count 180 X10*3/uL (160-400); Red Blood Count 5.09 X10*6/uL (4.60-5.80); Red Cell Distribution Width 13.6 % (11.0-16.0); White Blood Count 6.1 X10*3/uL (4.8-10.8)
[2024-07-02 10:31] LABS: Estimated Average Glucose 131 mg/dL; Hemoglobin A1c % 6.2 % (<6.0)
[2024-07-02 10:57] LABS: HBc Num1 0.07 S/CO (0.00-0.79); HBsAGNum1 0.34 S/CO (0.00-0.99); Hepatitis B Core Antibody Nonreactive (Nonreactive); Hepatitis B Surface Antigen Negative (Negative)
[2024-07-02 11:10] LABS: Alanine Aminotransferase 39 U/L (0-40); Albumin Level 4.3 g/dL (3.5-5.0); Anion Gap 14 (12-20); Aspartate Amino Transferase 30 U/L (5-37); Bilirubin Total 0.3 mg/dL (0.0-1.0); Blood Urea Nitrogen 20 mg/dL (9-16); Calcium 8.8 mg/dL (8.4-10.2); Carbon Dioxide 23 mmol/L (22-29); Chloride 109 mmol/L (96-108); Cholesterol 135 mg/dL (<200); Estimated Glomerular Filt Rate > 60; Glucose Fasting 125 mg/dL (60-99); HDL Cholesterol 37 mg/dL (>40); LDL Cholesterol Calculated 89 mg/dL (<100); Potassium 3.9 mmol/L (3.3-5.1); Prostate Specific Antigen Scr 0.52 ng/mL (<0.05-4.0); Sodium 142 mmol/L (135-145); TSH reflex Free T4 1.29 uIU/mL (0.32-4.0); Triglycerides 47 mg/dL (<150)
[2024-07-02 11:25] LABS: Creatinine Urine 183.68 mg/dL; Protein/Creatinine Ratio, Ur 0.29 (<0.2); Total Protein Urine Random 54 mg/dL (<12)
[2024-07-02 12:51] LABS: Alkaline Phosphatase 69 U/L (39-117)
[2024-07-04 23:54] LABS: IgA 144 mg/dL (47-310); IgG 942 mg/dL (600-1640); IgM 31 mg/dL (50-300)
== END 2024-07-02 07:55 | disposition home or self-care (01) ==
LOC: HO.HMGCLDS 07:54
PROVIDERS: Internal Medicine Nephrology; PCP Nurse Practitioner Family; Referring Provider Physician Assistant; Visit Provider Nurse Practitioner Family
DX: Z00.00 Encounter for general adult medical examination without abnormal findings (principal); E11.65 Type 2 diabetes mellitus with hyperglycemia; E78.00 Pure hypercholesterolemia, unspecified; I10 Essential (primary) hypertension; R80.9 Proteinuria, unspecified; Z12.5 Encounter for screening for malignant neoplasm of prostate
CPT/HCPCS: 36415; 80053; 80061; 81001; 82570; 82784; 83036; 84153; 84156; 84443; 85025; 86334; 86335; 86704; 87340; 96127

== ENCOUNTER 2024-07-08 07:44 | Outpatient (AMB) | payer BC, SELFPAY ==
--- NOTE | 2024-07-08 07:46 | A.OFFVIS_ITS ---
Vital Signs 07/08/24 07:48 Height 5 ft 7 in Weight 338 lb 3.025 oz BMI 53.0 BP 112/70 Blood Pressure Location Rt brachial Position Sitting Pulse 80 Pulse Source Pulse Oximeter Pulse Oximetry (%) 98 Oxygen Delivery Method Room Air Intake Visit Reasons: dm Intake Note: Patient present today for Type 2 Diabetes Mellitus Last Diabetic eye exam: approx 4-5 months ago Last Podiatry Visit: Does not see a Economics Teacher Random Glucose: 127 mg/dl HgA1C: 6.2% 07/02/2024 Senior Software Engineer Required: No Accompanied by: Self / Same As Patient Allergies No Known Allergies Allergy (Verified 07/08/24 07:49) Medication List - Last Reconciled 07/08/24 by Ryann Peña PA-C acetaminophen (Tylenol Extra Strength) 500 mg PO Q6H PRN aspirin 81 mg PO DAILY atorvastatin 10 mg PO BEDTIME blood sugar diagnostic (vivioTouch Ultra Test strips) Use BID As directed to monitor blood glucose blood-glucose meter (vivioTouch Ultra2 Meter) Use daily As directed to monitor blood sugars. cholecalciferol (vitamin D3) 50 mcg PO DAILY ciclopirox 8% 1 appl topical DAILY 4 weeks clindamycin phosphate 1% 1 appl topical BEDTIME 20 days lancets (vivioTouch UltraSoft 2 Lancet) use daily As directed to monitor blood sugars lisinopril 10 mg PO BID 90 days HPI HPI dm: Details: Patient is a 49-year-old male who presents today for a diabetic follow-up. He has a significant past medical history of hypertension, controlled type 2 diabetes, and hyperlipidemia. Endo: His A1c is 6.0. He is currently on Mounjaro 7.5 mg weekly, and metformin 500 mg daily. -He has been checking his blood sugars 1-2 x a day. He states this morning it was 114. Denies low blood sugars. He states that his daughter has been following with a motor vehicle emissions inspector and that they are on the same sort of program. He is trying to now increase his protein intake and make sure he walks about a mile a day. -he is on an APOLINAR-inhibitor and statin. -He states most people in his family have t2dm. Nephro: following with nephrology for proteinuria and lisinopril 20 mg. CV: Blood pressure today in the office is 112/70. He is on lisinopril 20 mg. Cholesterol is controlled Lipitor 10 mg. Last LDL 89, lfts wnl. [facility] Medical History Obstructive sleep apnea Hyperlipidemia Uncontrolled type 2 diabetes mellitus with hyperglycemia Morbid (severe) obesity due to excess calories Migraine Snores Asthma, stable Hypertension Surgical History History of tonsillectomy H/O colonoscopy S/P excision of lipoma [place] teeth extracted Family History Other Mental health disorder Social History Housing: House Patient Tobacco Use Status: Former Tobacco user Tobacco use type: Cigarette Years Smoked: 20 e-Cigarette/Vaping Use: Never Used Second Hand Smoke Exposure: No Current occupational status: employed Cognitive needs: No Hearing needs: No Vision needs: Yes Physical Exam Vital Signs: Last Vital Signs Pulse 80 07/08/24 07:48 BP 112/70 07/08/24 07:48 Pulse Ox 98 07/08/24 07:48 Oxygen Delivery Method Room Air 07/08/24 07:48 BMI result Body Mass Index 53.0 Const Orientation/consciousness: patient oriented x3 Neck Neck: Yes no lymphadenopathy Thyroid: Thyroid normal Carotids: no bruits Resp Auscultation: clear to auscultation bilaterally Cardio Rate: regular rate Rhythm: regular rhythm Heart sounds: S1 normal heart sound present and S2 normal heart sound present Peripheral pulses: dorsalis pedis present Neuro General: patient oriented x3, gait normal and no focal motor deficits Extrem Other: Monofilament sensation intact bilaterally. Vibratory sensation intact bilaterally. Skin intact. General: Yes normal to inspection Results Reviewed Results Reviewed: Laboratory Last Values Glucose (Clinic) 127 mg/dL (60-115) H 07/08/24 07:53 Laboratory Tests 07/02/24 07/02/24 07/08/24 08:24 08:59 07:53 Creatinine 0.69 Estimated GFR > 60 Glucose (Clinic) 127 H Hgb A1c (Clinic) 6.0 Triglycerides 47 Cholesterol 135 LDL Cholesterol, Calc 89 HDL Cholesterol 37 L Assessment & Plan Assessment & Plan (1) Controlled type 2 diabetes mellitus with microalbuminuria: Code(s): E11.29 - Type 2 diabetes mellitus with other diabetic kidney complication; R80.9 - Proteinuria, unspecified Category: Medical Qualifiers: Diabetes mellitus grab jack worker insulin use: without group home use Qualified Code(s): E11.29 - Type 2 diabetes mellitus with other diabetic kidney complication; R80.9 - Proteinuria, unspecified Plan: increase mounjaro to 10 mg daily stop metformin recheck labs in 3 months (2) Microalbuminuria: Code(s): R80.9 - Proteinuria, unspecified Category: Medical Plan: following with nephrology (3) HTN (hypertension): Code(s): I10 - Essential (primary) hypertension Category: Medical Qualifiers: Hypertension type: primary hypertension Qualified Code(s): I10 - Essential (primary) hypertension Plan: juan cordova current plan (4) Hyperlipidemia: Code(s): E78.5 - Hyperlipidemia, unspecified Category: Medical Qualifiers: Hyperlipidemia type: pure hypercholesterolemia Qualified Code(s): E78.00 - Pure hypercholesterolemia, unspecified Plan: continue lipitor Orders: Orders Comprehensive [place]. Panel Fast Today E11.29 - Type 2 diabetes mellitus with other diabetic kidney complication, E78.00 - Pure hypercholesterolemia, unspecified, I10 - Essential (primary) hypertension, R80.9 - Proteinuria, unspecified Hemoglobin A1c Today E11.29 - Type 2 diabetes mellitus with other diabetic kidney complication, E78.00 - Pure hypercholesterolemia, unspecified, I10 - Essential (primary) hypertension, R73.01 - Impaired fasting glucose, R80.9 - Proteinuria, unspecified Referrals Podiatry Referral B35.1 - Tinea unguium, E11.29 - Type 2 diabetes mellitus with other diabetic kidney complication, R80.9 - Proteinuria, unspecified Medications: New tirzepatide (Mounjaro) 10 mg (0.5 mL) subcut QWEEK 2 mL 5RF Coding Level of Care Code Est Pt Level 4 (57032) Complex EM visit Add On G2211 Diagnoses Controlled type 2 diabetes mellitus with microalbuminuria, without long-term current use of insulin E11.29; R80.9 Diabetes mellitus group home insulin use: without grab jack worker use Microalbuminuria R80.9 Primary hypertension I10 Hypertension type: primary hypertension Pure hypercholesterolemia E78.00 Hyperlipidemia type: pure hypercholesterolemia
[2024-07-08 07:48] VITALS: BP 112/70; PULSE 80; O2SAT 98; BMI 53.0
[2024-07-08 07:56] LABS: Glucose, Whole Blood 127 mg/dL (60-115)
== END 2024-07-08 08:25 | disposition home or self-care (01) ==
LOC: HO.ENCR 07:44
PROVIDERS: PCP Nurse Practitioner Family; Visit Provider Physician Assistant
DX: E11.29 Type 2 diabetes mellitus with other diabetic kidney complication (principal); R80.9 Proteinuria, unspecified; I10 Essential (primary) hypertension; E78.00 Pure hypercholesterolemia, unspecified

== ENCOUNTER → 2024-07-08 07:44 | Outpatient (BNVA) | payer BC, SELFPAY | PROVIDERS: PCP Nurse Practitioner Family; Visit Provider Physician Assistant | DX: E11.29 Type 2 diabetes mellitus with other diabetic kidney complication (principal); R80.9 Proteinuria, unspecified; I10 Essential (primary) hypertension; E78.00 Pure hypercholesterolemia, unspecified; B35.1 Tinea unguium | CPT/HCPCS: 82947 ==

== ENCOUNTER 2024-08-28 09:33 | Outpatient (AMB) | payer BC, SELFPAY ==
[2024-08-28 10:01] VITALS: BP 112/76; PULSE 85; O2SAT 96; BMI 51.1
--- NOTE | 2024-08-28 10:01 | HO.NEPHOV ---
Vital Signs 08/28/24 10:01 Height 5 ft 7 in Weight 326 lb BMI 51.1 BP 112/76 Blood Pressure Location Rt brachial Position Sitting Pulse 85 Pulse Source Pulse Oximeter Pulse Oximetry (%) 96 Oxygen Delivery Method Room Air Intake Visit Reasons: Hypertension-LVM Individual Pension Adviser Required: No Accompanied by: Self / Same As Patient Allergies No Known Allergies Allergy (Verified 08/28/24 10:02) HPI Comments Details: I had the pleasure of seeing Kali in follow up for proteinuria. 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 He has been a diabetic with a strong family history of it. He is found to have proteinuria. He denies any carotid stenosis, peripheral arterial disease, renal artery stenosis, smoking, drug use, renal calculi, coronary artery disease, congestive heart failure, CVA. He has been taking APOLINAR inhibitor. He claims to be trying to lose weight. He has no pedal edema. He used to take nonsteroidal anti-inflammatories but not regularly. He has no history of hepatitis or HIV. He denies nausea, vomiting, diarrhea, chest pain, shortness of breath, paroxysmal nocturnal dyspnea, orthopnea, pedal edema, orthostatic symptoms. He currently feels well. His renal functions are normal. [facility] Medical History (Updated 08/28/24 @ 10:22 by Jacob Weeks MD) Obstructive sleep apnea Hyperlipidemia Uncontrolled type 2 diabetes mellitus with hyperglycemia Morbid (severe) obesity due to excess calories Migraine Snores Asthma, stable Hypertension Surgical History History of tonsillectomy H/O colonoscopy S/P excision of lipoma [place] teeth extracted Family History Other Mental health disorder Social History Housing: House Patient Tobacco Use Status: Former Tobacco user Tobacco use type: Cigarette Years Smoked: 20 e-Cigarette/Vaping Use: Never Used Second Hand Smoke Exposure: No Current occupational status: employed Cognitive needs: No Hearing needs: No Vision needs: Yes Review of Systems Const All systems reviewed & are unremarkable except as noted in HPI and below Physical Exam Vital Signs: Last Vital Signs Pulse 85 08/28/24 10:01 BP 112/76 08/28/24 10:01 Pulse Ox 96 08/28/24 10:01 Oxygen Delivery Method Room Air 08/28/24 10:01 BMI result Body Mass Index 51.1 Const General: comfortable and no acute distress Orientation/consciousness: patient oriented x3 HEENT Head: Yes normocephalic Mouth: Normal oral and palatal mucosa present Eyes EOM: EOMs intact bilaterally Neck Neck: Yes supple Resp Auscultation: clear to auscultation bilaterally Cardio Jugular venous distension: no JVD Rate: regular rate GI Palpation (GI): Soft to palpation Auscultation: normal bowel sounds General: Yes no CVA tenderness Back/Spine/Pelvis Back: no CVA tenderness Skin General skin exam: no rashes or lesions noted Neuro General: patient oriented x3 and moves all extremities Extrem General: Yes no pedal edema Results Reviewed Nephrology Results: Hgb, (14.0-18.0) 14.5 g/dl 07/02/24 WBC, (4.8-10.8) 6.1 X10*3/uL 07/02/24 Plt Count, (160-400) 180 X10*3/uL 07/02/24 Sodium, (135-145) 142 mmol/L 07/02/24 Potassium, (3.3-5.1) 3.9 mmol/L 07/02/24 Chloride, (96-108) 109 mmol/L H 07/02/24 Carbon Dioxide, (22-29) 23 mmol/L 07/02/24 BUN, (9-16) 20 mg/dL H 07/02/24 Creatinine, (0.5-1.4) 0.69 mg/dL 07/02/24 Calcium, (8.4-10.2) 8.8 mg/dL 07/02/24 Urine Protein, (Neg-Trace) 100 (2+) mg/dL H 07/02/24 Urine Creatinine 183.68 mg/dL 07/02/24 Protein/Creatinin Ratio, (<0.2) 0.29 H 07/02/24 Assessment & Plan Assessment & Plan (1) HTN (hypertension): Code(s): I10 - Essential (primary) hypertension Category: Medical Qualifiers: Hypertension type: primary hypertension Qualified Code(s): I10 - Essential (primary) hypertension (2) Diabetic nephropathy: Code(s): E11.21 - Type 2 diabetes mellitus with diabetic nephropathy Category: Medical Qualifiers: Diabetes mellitus type: type 2 Qualified Code(s): E11.21 - Type 2 diabetes mellitus with diabetic nephropathy Otilio Bass has proteinuria most likely due to diabetes mellitus. He has high BMI which also has put him at risk for secondary FSGS. He has no history of any hepatitis. He does not give any symptomatology to suggest any active glomerular pathology. He does not take any PPI or nonsteroidal anti-inflammatories regularly. He should continue lisinopril 10 mg b.i.d. I have ordered follow-up urine studies. His renal functions are normal. He clearly will benefit from more weight loss. He will benefit from gastric sleeve surgery. All these have been explained in detail. All questions answered and follow-up appointment given Orders: Orders Creatinine 8 Months E11. - Type 2 diabetes mellitus with diabetic nephropathy, I10 - Essential (primary) hypertension Blood Urea Nitrogen 8 Months E11. - Type 2 diabetes mellitus with diabetic nephropathy, I10 - Essential (primary) hypertension Electrolytes 8 Months E11. - Type 2 diabetes mellitus with diabetic nephropathy, I10 - Essential (primary) hypertension Protein Creatinine Ratio, Ur 8 Months E11.21 - Type 2 diabetes mellitus with diabetic nephropathy, I10 - Essential (primary) hypertension Coding Level of Care Code Est Pt Level 4 (43234) Diagnoses Primary hypertension I10 Hypertension type: primary hypertension Diabetic nephropathy associated with type 2 diabetes mellitus E11. Diabetes mellitus type: type 2
--- OUTSIDE RECORDS SUMMARY | 2024-08-28 10:01 | XMS_ITS | Clinical Summary ---
Author Organization [address] [facility] Address [address] [place] [address] Phone Care Team Providers Care Machine Sander Name Role Phone Warner Burns NP Primary Care Provider Social History Tobacco Use Types Packs/Day Years Used Date Smoking Tobacco: Never Assessed Sex and Gender Information Value Date Recorded Sex Assigned at Not on file Legal Sex Male 9:04 AM EDT Gender Identity Not on file Sexual Orientation Not on file Plan of Treatment Upcoming Encounters Date Type Department Care Team ([facility] Contact Info) Description 09/26/2024 8:45 AM EDT Consult Orthopedic Surgery - [place] [id number] [address] Dragan Schwartz DPGhanshyam [address] [address] Health Maintenance Due Date Last Done Comments Diabetes: Annual GFR (Glomer ular Filtration Rate) 1976 Diabetes: Annual Foot Exam 1986 Diabetes: Annual Retina Eye Exam 1986 DTaP,Tdap,and Td Vaccines (1 - Tdap) 1995 Hepatitis B Vaccines (1 of 3 - 19+ 3-dose series) 1995 Pneumococcal Vaccine: Pediat rics (0 to 5 Years) and At-Risk Patients (6 to 49 Years) (1 of 2 - PCV) 1995 COVID-19 Vaccine (2023-2 5 season) 2023 Cholesterol Screening (Lipid Panel) 07/10/2024 Colorectal Cancer Screening: Colonoscopy 07/10/2024 Depression Screening 07/10/2024 Diabetes: Annual Urine Albumin-Creatinine Ratio (uACR) 07/10/2024 Diabetes: Blood Sugar Contro l Test (HGBA1C) 07/10/2024 HIV Screening 07/10/2024 Hepatitis C Screening 07/10/2024 Social Influencers of Health Screening 07/10/2024 Influenza Vaccine (Season Ended) 2024 HIB Vaccines Aged Out No longer eligi ble based on patient's age to complete this topic HPV Vaccines Aged Out No longer eligi ble based on patient's age to complete this topic Hepatitis A Vaccines Aged Out No long er eligible based on patient's age to complete this topic IPV Vaccines Aged Out No longer eligi ble based on patient's age to complete this topic MMR Vaccines Aged Out No longer eligi ble based on patient's age to complete this topic Meningococcal ACWY Vaccine Aged Out N o longer eligible based on patient's age to complete this topic Meningococcal B Vaccine Aged Out No l onger eligible based on patient's age to complete this topic RSV Immunization Patients Un bob 20 months Aged Out No longer eligible b ased on patient's age to complete this topic Varicella Vaccines Aged Out No longer eligible based on patient's age to complete this topic Insurance [facility] ([facility]) Care Teams Machine Sander Relationship Specialty Start Date End Date Warner Burns NP PCP - General Family Medicine 07/10/24
== END 2024-08-28 10:28 | disposition home or self-care (01) ==
LOC: HO.HKA 09:34
PROVIDERS: PCP Nurse Practitioner Family; Visit Provider Internal Medicine Nephrology
DX: I10 Essential (primary) hypertension (principal); E11.21 Type 2 diabetes mellitus with diabetic nephropathy
CPT/HCPCS: 99214

== ENCOUNTER 2024-09-30 07:38 | Outpatient (AMB) | payer BC, SELFPAY ==
--- OUTSIDE RECORDS SUMMARY | 2024-09-26 08:45 | XMS_ITS | Encounter Summary ---
Author Organization [facility] Address [address] [place] [address] Care Team Providers Care Turf Manager Name Role Phone Warner Burns NP Primary Care Provider + [phone] Reason for Visit * Reason Comments Consult * Consultation (Routine) - Authorized Specialty Diagnoses / Procedures Referred By Tayo linares Referred To Contact Podiatry / Orthopaedic Surgery Diagnoses Tinea unguium Type 2 diabetes mellitus with other diabetic kidney complication (CMS/HCC V24, CMS/HCC V28) Ryann Peña PA [address] [place] [phone] Phone: tel: Dragan Schwartz DPM [address] [address] Phone: tel: fax: Referral ID Status Reason Start Date Expiration Date Visits Requested Visits Authorized [id number] Authorized Specialty Services Required 07/10/2024 07/10/2025 1 1 Encounter Details Date Type Department Care Team ([facility] Contact Info) Description 09/26/2024 8:45 AM EDT Consult Orthopedic Surgery - [place] [address] [phone] Dragan Schwartz DPM [address] [address] Tinea unguium; Type 2 diabetes mellitus with other diabetic kidney complication (CMS/HCC V24, CMS/HCC V28) Social History Tobacco Use Types Packs/Day Years Used Date Smoking Tobacco: Never Assessed Sex and Gender Information Value Date Recorded Sex Assigned at Not on file Legal Sex Male 9:04 AM EDT Gender Identity Not on file Sexual Orientation Not on file documented as of this encounter Last Filed Vital Signs Vital Sign Reading Time Taken Comments Blood Pressure - - Pulse - - Temperature - - Respiratory Rate - - Oxygen Saturation - - Inhaled Oxygen Concentration - - Weight 141 kg (311 lb) 09/26/2024 8:22 AM EDT Height 170.2 cm (5' 7 ) 09/26/2024 8:22 AM EDT Body Mass Index 48.71 09/26/2024 8:22 AM EDT documented in this encounter Progress Notes * Dragan Schwartz DPM - 09/26/2024 8:45 AM EDT Last PCP visit:Referring MD: Ryann Peña PA IDENTIFIER: Lorne is a 49 y.o. year old male who presents for consultation. CC: Foot pain HPI: Lorne is a 49 y.o. year old male presents complaining of yellow discoloration of both great toenails notes he been started on topical medication appropriately with his primary care notes that his nails have been improving he is type II diabetic denies numbness burning tingling to his feet but wouldlike a foot exam overall is been doing very well with his feet and footcare he states he started diagnosis of diabetic he was able to improve his A1c in 2 months down from 10-6 and is doing very wellwith his primary care ROS: GENERAL: Pt denies nausea, fever, vomiting, chills, or shortness of breath. Pt in NAD. CARDIOLOGY: pt denies chest pain, palpitations LUNGS: pt denies shortness of breath MUSCULOSKELETAL: See HPI, otherwise no joint pain or swelling, back pain, or muscle pain. SKIN: see HPI, otherwise no lesions, rash or itching NEURO: No persistent headache, weakness or numbness The remainder of the review of systems is noncontributory PAST MEDICAL HISTORY: There is no problem list on file for this patient. SOCIAL HISTORY: Social History Tobacco Use Smoking status: Not on file Smokeless tobacco: Not on file Substance Use Topics Alcohol use: Not on file ACTIVE MEDICATIONS: No outpatient medications have been marked as taking for the 09/26/24 encounter (Consult) with Dragan Schwartz DPM. ALLERGIES: No Known Allergies PHYSICAL EXAM: Visit Vitals Ht 1.702 m (67 ) Wt 141 kg (311 lb) BMI 48.71 kg/m?? BSA 2.44 m?? PODIATRIC EXAMINATION: GENERAL: Patient appears well nourished, with NAD. VASCULAR: Dorsalis pedis pulses are 2/4 bilaterally and Posterior tibial pulses are 2/4 bilaterally. Capillary filling time within normal limits the digits. No pallor on elevation or rubor on dependency. No varicosities. Denies rest pain or claudication pain. NEUROLOGICAL: Sharp/dull sensation intact, protective sensation intact 10/10 with Ipswitch touch test bilaterally, vibratory sensation intact to the tibial tuberosity. ORTHOPEDIC: Good muscle strength 5/5 of all flexors and extensors. Dorsi flexion of ankle ,10 degrees, plantar flexion WNL. No muscle atrophy. DERMATOLOGICAL:.Yellow discoloration both great toenails BIOMECHANICS: Ankle ROM WNL, STJ ROM wnl, MTJ ROM wnl, 1st MPJ ROM wnl. IMAGING: IMPRESSION: 1. Tinea unguium 2. Type 2 diabetes mellitus with other diabetic kidney complication ([facility] V24, [facility] V28) PLAN: Pt was seen and examined, history reviewed. Discussed with patient regarding proper glucose control, exercise, and diet. Explained to patient proper shoe gear, and importance of daily foot checks. I reviewed neuropathy and why it occurs in diabetics. I educated the patient on proper blood sugar control and the importance of an HgBA1c of less than 7.0%. I reviewed the signs and symptoms of neuropathy with the patient Would recommend continuing ciclopirox topically prescribed by PCP Pt to return for another evaluation in 3-6months. Dragan Schwartz DPM documented in this encounter Plan of Treatment Upcoming Encounters Date Type Department Care Team (Late st Contact Info) Description 03/31/2025 8:15 AM EST Office Visit Orthopedic Surgery - [place] [address] [phone] Dragan Schwartz DPM [address] [address] documented as of this encounter Visit Diagnoses Diagnosis Tinea unguium Dermatophytosis of nail Type 2 diabetes mellitus with other diabetic kidney complication ([facility] V24, [facility] V28) documented in this encounter Orders Outpatient Referral Count Last Ordered Date Fir st Ordered Date AMB REFERRAL TO PODIATRY 1 09/26/2024 documented in this encounter Care Teams Turf Manager Relationship Specialty Start Date End Date Warner Burns NP [address] [place] [address] PCP - General Family Medicine 07/10/24 documented as of this encounter
[2024-09-30 07:54] VITALS: BP 140/82; PULSE 71; O2SAT 98; BMI 50.7
--- NOTE | 2024-09-30 07:54 | A.OFFVIS_ITS ---
Vital Signs 09/30/24 07:54 Height 5 ft 7 in Weight 323 lb 13.745 oz BMI 50.7 BP 140/82 H Blood Pressure Location Lt brachial Position Sitting Pulse 71 Pulse Source Pulse Oximeter Pulse Oximetry (%) 98 Oxygen Delivery Method Room Air Intake Visit Reasons: DM Intake Note: Patient present today for Type 2 Diabetes Mellitus Last Diabetic eye exam: Not sure of the month but it was this year. Last Podiatry Visit: 09/2024 Random Glucose: 116 mg/dl HgA1C: 6.1% Saddle Lining Stitcher Required: No Accompanied by: Self / Same As Patient Allergies No Known Allergies Allergy (Verified 09/30/24 08:07) HPI HPI DM: Details: Patient is a 49-year-old male who presents today for a diabetic follow-up. He has a significant past medical history of hypertension, controlled type 2 diabetes, and hyperlipidemia. Endo: His A1c is 6.1. He is currently on Mounjaro 10 mg weekly. He has lost about 20 lbs with the increased dosage. He had n/v with ozempic and trulicity. He was d/c'd on metformin due to gi upset and ineffective. glipizide was stopped due to lower glucose readings. -He has been checking his blood sugars 1-2 x a day. He states this morning it was 114. Denies low blood sugars. He states that his daughter has been following with a and rescue fire fighter crash fire and that they are on the same sort of program. He is trying to now increase his protein intake and make sure he walks about a mile a day but knees have been bothering him. -he is on an APOLINAR-inhibitor and statin. -He states most people in his family have t2dm. Nephro: following with nephrology for proteinuria and lisinopril 20 mg. CV: Blood pressure today in the office is 140/82. He states he has not taken it. He checks its at home and it is wnl. He is on lisinopril 20 mg. Cholesterol is controlled Lipitor 10 mg. Last LDL 89, lfts wnl. [facility] Medical History (Updated 08/28/24 @ 10:22 by Jacob Weeks MD) Obstructive sleep apnea Hyperlipidemia Uncontrolled type 2 diabetes mellitus with hyperglycemia Morbid (severe) obesity due to excess calories Migraine Snores Asthma, stable Hypertension Surgical History History of tonsillectomy H/O colonoscopy S/P excision of lipoma [place] teeth extracted Family History Other Mental health disorder Social History Housing: House Patient Tobacco Use Status: Former Tobacco user Tobacco use type: Cigarette Years Smoked: 20 e-Cigarette/Vaping Use: Never Used Second Hand Smoke Exposure: No Current occupational status: employed Cognitive needs: No Hearing needs: No Vision needs: Yes Physical Exam Vital Signs: Last Vital Signs Pulse 71 09/30/24 07:54 BP 140/82 H 09/30/24 07:54 Pulse Ox 98 09/30/24 07:54 Oxygen Delivery Method Room Air 09/30/24 07:54 BMI result Body Mass Index 50.7 Const Orientation/consciousness: patient oriented x3 HEENT Ears: hearing grossly normal bilaterally Neck Thyroid: Thyroid normal Lymphatic: no lymphadenopathy noted Resp Auscultation: clear to auscultation bilaterally Cardio Rate: regular rate Rhythm: regular rhythm Heart sounds: S1 normal heart sound present and S2 normal heart sound present Skin General skin exam: no rashes or lesions noted Neuro General: patient oriented x3, gait normal and no focal motor deficits Results AMB Hemoglobin A1c AMB Hemoglobin A1c 6.1 % Last Edit by MARY Carvalho on 09/30/24 08:19 Results Reviewed Results Reviewed: Laboratory Last Values Glucose (Clinic) 113 mg/dL (60-115) 09/30/24 08:09 Hgb A1c (Clinic) 6.1 % (4.0-6.0) H 09/30/24 08:13 Laboratory Tests 07/02/24 09/30/24 08:59 08:09 Anion Gap 14 Creatinine 0.69 Estimated GFR > 60 Glucose (Clinic) 113 Hemoglobin A1c % 6.2 H Triglycerides 47 Cholesterol 135 LDL Cholesterol, Calc 89 HDL Cholesterol 37 L Urine Bacteria None Seen Hyaline Casts 0-2 U Random Total Protein 54 H Urine Creatinine 183.68 Assessment & Plan Assessment & Plan (1) Controlled type 2 diabetes mellitus with microalbuminuria: Code(s): E11.29 - Type 2 diabetes mellitus with other diabetic kidney complication; R80.9 - Proteinuria, unspecified Category: Medical Plan: Increase Mounjaro to 12.5 mg weekly. He will let me know if he does not tolerate this dose. Encouraged him to continue with increase physical activity as tolerated, healthy diet and weight loss. Congratulated him on losing weight. We will check labs prior to next appointment. (2) HTN (hypertension): Code(s): I10 - Essential (primary) hypertension Category: Medical Qualifiers: Hypertension type: primary hypertension Qualified Code(s): I10 - Essential (primary) hypertension Plan: WNL. Continue current regimen (3) Hyperlipidemia: Code(s): E78.5 - Hyperlipidemia, unspecified Category: Medical Qualifiers: Hyperlipidemia type: pure hypercholesterolemia Qualified Code(s): E78.00 - Pure hypercholesterolemia, unspecified Plan: Continue current regimen. We will monitor Orders: Orders AMB Hemoglobin A1c Today E11.29 - Type 2 diabetes mellitus with other diabetic kidney complication, R80.9 - Proteinuria, unspecified, Z13.9 - Encounter for screening, unspecified Medications: New tirzepatide (Mounjaro) 12.5 mg (0.5 mL) subcut QWEEK 2 mL 5RF Discontinued tirzepatide (Mounjaro) Discontinued Reason: Doctor's Order 10 mg (0.5 mL) subcut QWEEK 2 mL 5RF Coding Level of Care Code Est Pt Level 4 (31453) Complex EM visit Add On G2211 Diagnoses Controlled type 2 diabetes mellitus with microalbuminuria E11.29; R80.9 Primary hypertension I10 Hypertension type: primary hypertension Pure hypercholesterolemia E78.00 Hyperlipidemia type: pure hypercholesterolemia
[2024-09-30 08:13] LABS: Glucose, Whole Blood 113 mg/dL (60-115)
== END 2024-09-30 08:25 | disposition home or self-care (01) ==
LOC: HO.ENCR 07:38
PROVIDERS: PCP Nurse Practitioner Family; Visit Provider Physician Assistant
DX: E11.29 Type 2 diabetes mellitus with other diabetic kidney complication (principal); R80.9 Proteinuria, unspecified; I10 Essential (primary) hypertension; E78.00 Pure hypercholesterolemia, unspecified; Z13.9 Encounter for screening, unspecified

== ENCOUNTER → 2024-09-30 07:38 | Outpatient (BNVA) | payer BC, SELFPAY | PROVIDERS: PCP Nurse Practitioner Family; Visit Provider Physician Assistant | DX: E11.29 Type 2 diabetes mellitus with other diabetic kidney complication (principal); I10 Essential (primary) hypertension; R80.9 Proteinuria, unspecified; E78.00 Pure hypercholesterolemia, unspecified | CPT/HCPCS: 82947; 83036 ==

== ENCOUNTER 2024-10-23 14:42 | Outpatient (AMB) | payer BC, SELFPAY ==
--- NOTE | 2024-10-23 15:16 | A.OFFVIS_ITS ---
Vital Signs 10/23/24 15:17 Height 5 ft 7 in Weight 319 lb 10.724 oz BMI 50.1 BP 134/74 Blood Pressure Location Rt brachial Position Sitting Pulse 93 Intake Visit Reasons: Pre colonoscopy Intake Note: Kali returns to office pre repeat colonoscopy. CC: Patient reports that he gets constipation once in a while and he takes some stool softener pills that help him go. Quality Control Lab Tech Required: No Accompanied by: Self / Same As Patient Allergies No Known Allergies Allergy (Verified 10/23/24 15:19) HPI HPI Pre colonoscopy: Details: Assessment & Plan (1) H/O colonoscopy: Comment: 04/21/23 Dr. Stephen Code(s): Z98.890 - Other specified postprocedural states Plan He completed the prep but did not clear, so we will have to do a different prep with 2 bisacodyl x 5 days prior to the next scope. He is agreeable to a 2 year recall. The procedure was well tolerated. The results were explained and the patient is agreeable to the follow-up interval as stated. The bowel pattern has returned to normal. Education was provided to tell any 1st degree relatives about their findings to be sure that they are screened by age 45. Educated that they will be put on a recall list when it is time for their repeat scope but should they move out of state or away from the hospital they will need to remember along with their primary to repeat the procedure in a timely fashion to avoid any adverse complications. He has been eating better with more fiber and vegetables as his dtr is helping prepare food - with this he is losing weight which is intentional. He just had knee surgery which went well for him. COLONOSCOPY 04/21/23? Findings: Terminal Ileum: Not evaluated Cecum: Normal Ascending Colon: Normal Transverse Colon: Normal Descending Colon: Normal Sigmoid Colon: Moderate diverticulosis Rectum: Normal Ano-rectum: Moderate internal hemorrhoids Impression and Post Procedure Diagnosis: Colonoscopy Findings: No polyps were detected Moderate diverticulosis seen in the sigmoid colon Moderate hemorrhoids on retroflexed exam. Prep was fair in some areas of the colon due to undigested vegetable matter which could not be suctioned (Pt admitted to taking rice and beans the day before colonoscopy) Plan: Pt has a FU appointment on 05/05/23 with Mady Mccauley NP Repeat Colonoscopy in 1-2 years due to sub-optimal prep (needs dulcolax 2 table ts daily x 5 days prior to next colonoscopy and an adult colonoscope for future colonoscopies). LABS: Laboratory Tests 07/02/24 08:59 WBC 6.1 Hgb 14.5 Hct 43.7 Plt Count 180 Estimated GFR > 60 Hemoglobin A1c % 6.2 H Total Bilirubin 0.3 AST 30 ALT 39 Alkaline Phosphatase 69 TSH 1.29 TODAY'S VISIT HE denies any bowel or upper GI problems. There are no prior problems with anesthesia or sedation. He has well controlled asthma and snores at night but not tested for WILL, no cardiac problems. No ID problems. [facility] Medical History Obstructive sleep apnea Hyperlipidemia Uncontrolled type 2 diabetes mellitus with hyperglycemia Morbid (severe) obesity due to excess calories Migraine Snores Asthma, stable Hypertension Surgical History History of tonsillectomy H/O colonoscopy S/P excision of lipoma [place] teeth extracted Family History Other Mental health disorder Social History Housing: House Patient Tobacco Use Status: Former Tobacco user Tobacco use type: Cigarette Years Smoked: 20 e-Cigarette/Vaping Use: Never Used Second Hand Smoke Exposure: No Current occupational status: employed Cognitive needs: No Hearing needs: No Vision needs: Yes Review of Systems Const Denies fatigue, Denies fever(s), Denies night sweats, Denies poor appetite and Reports weight loss (intentional) Eyes Details: glasses Reports requires corrective lenses ENT Reports Normal hearing present, Denies dental pain, Denies dysphagia, Denies hearing loss, Denies mouth pain, Denies odynophagia, Denies throat swelling, Denies tongue swelling and Reports other (Dentition adequate) Card Reports no additional complaints Resp Reports no additional complaints GI Details: Denies abdominal pain, Denies melena, Denies bloating, Denies hematochezia, Reports constipation, Denies GI cramping, Denies dysphagia, Denies excessive flatus, Denies early satiety, Denies heartburn, Denies diarrhea, Denies nausea, Denies odynophagia, Denies vomiting and Denies hematemesis Skin/Breast Denies pruritus, Denies lesions, Denies rash and Denies jaundice Neuro Reports Normal hearing present and Denies Abnormal speech present Endo Denies fatigue Aller/Immun Denies throat swelling and Denies tongue swelling Physical Exam Vital Signs: Last Vital Signs Pulse 93 10/23/24 15:17 BP 134/74 10/23/24 15:17 BMI result Body Mass Index 50.1 Const General: cooperative, no acute distress, well developed and well groomed Nutritional Appearance: well nourished and obese morbidly obese Orientation/consciousness: oriented to person, oriented to place and oriented to time Limitations: No language barrier HEENT Head: Yes normocephalic and Yes atraumatic Eyes General: appearance normal, both eyes and all related structures Pupils: Equal, round and reactive pupils present Neck Neck: Yes normal visual inspection and Yes no lymphadenopathy Thyroid: Thyroid normal Resp Effort & Inspection: normal respiratory effort and able to speak in complete sentences Auscultation: clear to auscultation bilaterally Cardio Rate: regular rate Rhythm: regular rhythm Heart sounds: Normal, physiologic split S2 sound present Peripheral pulses: radial pulses present and posterior tibial pulses present GI Inspection: No distended, Yes Abdominal panniculus present and Yes obesity Palpation (GI): Soft to palpation, nontender, no guarding, not rigid and No hepatosplenomegaly present Percussion: Yes normal to percussion Auscultation: normal bowel sounds Rectal Exam - Male: Yes deferred Skin General skin exam: no rashes or lesions noted, turgor normal, skin not dry, no jaundice, No spider nevi and no striae Rashes: no rashes Nails: normal Neuro General: oriented to person, oriented to place and oriented to time Cranial nerves: Yes Equal, round and reactive pupils present and Yes Normal hearing present Speech: No Abnormal speech present Extrem General: Yes normal to inspection, No clubbing, No cyanosis and No edema Psych Appearance: grossly normal and well kempt Mental Status: mental status grossly normal Speech and movement: Normal speech and movement present Affect: normal affect Attitude: cooperative Thought process: Normal thought process present and not confabulating Thought content: Normal thought content present Insight: Fair insight present (Psych) Judgement: Fair judgement present (Psych) Assessment & Plan Assessment & Plan (1) Pre-op examination: Code(s): Z01.818 - Encounter for other preprocedural examination Category: Medical Plan He had a colonoscopy in 2023 but failed to clear. We are going to get him Suprep but I also instruct him to take Dulcolax 2 days before to help facilitate clearing. HE has had some constipation since the that has resolved with Colace and he denies any upper GI problems. He also has been using [id number] hemorrhoid cream as his hemorrhoid has been more active. There are no prior problems with anesthesia or sedation. He has well controlled asthma and snores at night but not tested for WILL, no cardiac problems. No ID problems. There is no known FHX of crc or polyps. Orders: Orders Colonoscopy - GI Use Only Today Z01.818 - Encounter for other preprocedural examination Medications: New sodium,potassium,mag sulfates 17.5-3.13-1.6 gram (Suprep Bowel Prep Kit) 480 mL orally; FOR COLONOSCOPY PREP 354 mL 0RF bisacodyl (Dulcolax (bisacodyl)) 10 mg (2 x 5 mg) PO BEDTIME 4 tabs 0RF 2 days Coding Level of Care Code Est Pt Level 4 (48508) Diagnoses Pre-op examination Z01.818 Time Spent (min) 36
[2024-10-23 15:17] VITALS: BP 134/74; PULSE 93; BMI 50.1
--- OUTSIDE RECORDS SUMMARY | 2024-10-23 17:01 | XMS_ITS | Clinical Summary ---
Author Organization 175 [facility] Address [address] [place] [address] Phone Care Team Providers Care Shuffle Board Operator Name Role Phone Warner Burns NP Primary Care Provider [phone] Allergies No known active allergies Medications No known medications Encounters Date Type Department Care Team Description 09/26/2024 8:45 AM EDT Consult [facility] [address] [phone] Dragan Schwartz DPM Tinea unguium; Type 2 diabetes mellitus with other diabetic kidney complication (CMS/HCC V24, CMS/HCC V28) from Last 3 Months Social History Tobacco Use Types Packs/Day Years Used Date Smoking Tobacco: Never Assessed Sex and Gender Information Value Date Recorded Sex Assigned at Not on file Legal Sex Male 9:04 AM EDT Gender Identity Not on file Sexual Orientation Not on file Last Filed Vital Signs Vital Sign Reading Time Taken Comments Blood Pressure - - Pulse - - Temperature - - Respiratory Rate - - Oxygen Saturation - - Inhaled Oxygen Concentration - - Weight 141 kg (311 lb) 09/26/2024 8:22 AM EDT Height 170.2 cm (5' 7 ) 09/26/2024 8:22 AM EDT Body Mass Index 48.71 09/26/2024 8:22 AM EDT Plan of Treatment Upcoming Encounters Date Type Department Care Team ([facility] Contact Info) Description 03/31/2025 8:15 AM EST Office Visit [facility] [address] [address] Dragan Schwartz DPM [address] [phone] Health Maintenance Due Date Last Done Comments [...] 1995 COVID-19 Vaccine (2023-2 5 season) 2023 Depression Screening 02/21/2024 Cholesterol Screening (Lipid Panel) 07/10/2024 Colorectal Cancer Screening: Colonoscopy 07/10/2024 Diabetes: Annual Urine Albumin-Creatinine Ratio (uACR) 07/10/2024 Diabetes: Blood Sugar Contro l Test (HGBA1C) 07/10/2024 HIV Screening 07/10/2024 Hepatitis C Screening 07/10/2024 Social Influencers of Health Screening 07/10/2024 Influenza Vaccine (#1) 2024 HIB Vaccines Aged Out No longer [...] patient's age [id number] [facility] Care Teams Shuffle Board Operator Relationship Specialty Start Date End Date Warner Burns NP [address] [place] [address] PCP - General Family Medicine 07/10/24
== END 2024-10-23 16:08 | disposition home or self-care (01) ==
LOC: HO.HGI 14:43
PROVIDERS: PCP Nurse Practitioner Family; Visit Provider Nurse Practitioner
DX: Z01.818 Encounter for other preprocedural examination (principal); Z12.11 Encounter for screening for malignant neoplasm of colon
CPT/HCPCS: S0285

== ENCOUNTER 2024-12-30 07:51 | Outpatient (AMB) | payer BC, SELFPAY ==
--- OUTSIDE RECORDS SUMMARY | 2024-12-30 07:53 | XMS_ITS | Clinical Summary ---
Author Organization 175 [facility] Address [address] [place] [address] Phone Care Team Providers Care Staff Registered Nurse Name Role Phone Warner Burns NP Primary Care Provider [phone] Allergies No known active allergies Medications No known medications Social History Tobacco Use Types Packs/Day Years [...] 8:15 AM EST Office Visit Orthopedic Surgery [place] [phone] [phone] Dragan Schwartz DPM [address] [phone] Health Maintenance Due Date Last Done Comments Colorectal Cancer Screening: Colonoscopy 1976 Diabetes: Annual GFR (Glomer ular Filtration Rate) 1976 Diabetes: Annual Foot Exam 1986 Diabetes: Annual Retina Eye Exam 1986 DTaP,Tdap,and Td Vaccines (1 - Tdap) 1995 Hepatitis B Vaccines (1 of 3 - 19+ 3-dose series) 1995 Pneumococcal Vaccine: Pediat rics (0 to 5 Years) and At-Risk Patients (6 to 49 Years) (1 of 2 - PCV) 1995 Depression Screening 02/21/2024 Cholesterol Screening (Lipid Panel) 07/10/2024 Diabetes: Annual Urine Albumin-Creatinine Ratio (uACR) 07/10/2024 Diabetes: Blood Sugar Contro l Test (HGBA1C) 07/10/2024 HIV Screening 07/10/2024 Hepatitis C Screening 07/10/2024 Social Influencers of Health Screening 07/10/2024 COVID-19 Vaccine (1 - 2023-2 5 season) 2024 Influenza Vaccine (#1) 2024 RSV Immunization Adult Patie nts (1 - 1-dose 75+ series) 2051 HIB Vaccines Aged Out No longer eligi [...] age to complete this topic Insurance [facility] ([facility]) Care Teams Staff Registered Nurse Relationship Specialty Start Date End Date Warner Burns NP [address] [place] [address] PCP - General Family Medicine 07/10/24
[2024-12-30 08:00] VITALS: BP 138/86; PULSE 100; O2SAT 96; BMI 49.0
--- NOTE | 2024-12-30 08:00 | A.OFFVIS_ITS ---
Vital Signs 12/30/24 08:00 Height 5 ft 7 in Weight 312 lb 13.375 oz BMI 49.0 BP 138/86 Blood Pressure Location Lt brachial Position Sitting Pulse 100 Pulse Source Pulse Oximeter Pulse Oximetry (%) 96 Oxygen Delivery Method Room Air Intake Visit Reasons: DM Intake Note: Patient present today for Type 2 Diabetes Mellitus Last Diabetic eye exam: Last exam was on 12/27/24 Last Podiatry Visit: Last visit was on 12/2024 Random Glucose: 182 mg/dl HgA1C: 5.7% Medical Imaging Director Required: No Accompanied by: Self / Same As Patient Allergies No Known Allergies Allergy (Verified 12/30/24 08:07) HPI HPI DM: Details: Patient is a 49-year-old male who presents today for a diabetic follow-up. He has a significant past medical history of hypertension, controlled type 2 diabetes, and hyperlipidemia. Endo: His A1c is 5.7. He is currently on Mounjaro 12.5 mg weekly. No side effects He has lost about 60 lbs over the year with mounjaro He had n/v with ozempic and trulicity. He was d/c'd on metformin due to gi upset and ineffective. glipizide was stopped due to lower glucose readings. -He has been checking his blood sugars 1-2 x a day. He states it is 100-120. Denies low blood sugars. He states that his daughter has been following with a food mixer repairer and that they are on the same sort of program. -he is on an APOLINAR-inhibitor and statin. -He states most people in his family have t2dm. Nephro: following with nephrology for proteinuria and lisinopril 20 mg. CV: Blood pressure today in the office is 138/86. He is on lisinopril 20 mg. Cholesterol is controlled Lipitor 10 mg. Last LDL 89, lfts wnl. [facility] Medical History (Updated 10/23/24 @ 15:54 by SATURNINO Richard) Physical exam Encounter for routine adult physical exam with abnormal findings Obstructive sleep apnea Hyperlipidemia Uncontrolled type 2 diabetes mellitus with hyperglycemia Morbid (severe) obesity due to excess calories Migraine Snores Asthma, stable Hypertension Surgical History History of tonsillectomy H/O colonoscopy S/P excision of lipoma [place] teeth extracted Family History Other Mental health disorder Social History Housing: House Patient Tobacco Use Status: Former Tobacco user Tobacco use type: Cigarette Years Smoked: 20 e-Cigarette/Vaping Use: Never Used Second Hand Smoke Exposure: No Current occupational status: employed Cognitive needs: No Hearing needs: No Vision needs: Yes Physical Exam Vital Signs: Last Vital Signs Pulse 100 12/30/24 08:00 BP 138/86 12/30/24 08:00 Pulse Ox 96 12/30/24 08:00 Oxygen Delivery Method Room Air 12/30/24 08:00 BMI result Body Mass Index 49.0 Const Orientation/consciousness: patient oriented x3 HEENT Ears: hearing grossly normal bilaterally Neck Thyroid: Thyroid normal Lymphatic: no lymphadenopathy noted Resp Auscultation: clear to auscultation bilaterally Cardio Rate: regular rate Rhythm: regular rhythm Heart sounds: S1 normal heart sound present and S2 normal heart sound present Skin General skin exam: no rashes or lesions noted Neuro General: patient oriented x3, gait normal and no focal motor deficits Results AMB Hemoglobin A1c AMB Hemoglobin A1c 5.7 % Last Edit by MARY Carvalho on 12/30/24 08:19 Results Reviewed Results Reviewed: Laboratory Last Values Glucose (Clinic) 182 mg/dL (60-115) H 12/30/24 08:10 Assessment & Plan Assessment & Plan (1) Controlled type 2 diabetes mellitus with microalbuminuria: Code(s): E11.29 - Type 2 diabetes mellitus with other diabetic kidney complication; R80.9 - Proteinuria, unspecified Category: Medical Qualifiers: Diabetes mellitus long term care social worker insulin use: without intermediate use Qualified Code(s): E11.29 - Type 2 diabetes mellitus with other diabetic kidney complication; R80.9 - Proteinuria, unspecified Plan: Continue Mounjaro to 12.5 mg weekly. Encouraged him to continue with increase physical activity as tolerated, healthy diet and weight loss. Congratulated him on losing weight. We will check labs prior to next appointment. (2) HTN (hypertension): Code(s): I10 - Essential (primary) hypertension Category: Medical Qualifiers: Hypertension type: primary hypertension Qualified Code(s): I10 - Essential (primary) hypertension Plan: WNL. Continue current regimen (3) Hyperlipidemia: Code(s): E78.5 - Hyperlipidemia, unspecified Category: Medical Qualifiers: Hyperlipidemia type: pure hypercholesterolemia Qualified Code(s): E78.00 - Pure hypercholesterolemia, unspecified Plan: Continue current regimen. We will monitor Orders: Orders AMB Hemoglobin A1c Today E11.29 - Type 2 diabetes mellitus with other diabetic kidney complication, R80.9 - Proteinuria, unspecified, Z13.9 - Encounter for screening, unspecified Coding Level of Care Code Est Pt Level 4 (68687) Complex EM visit Add On G2211 Diagnoses Controlled type 2 diabetes mellitus with microalbuminuria, without long-term current use of insulin E11.29; R80.9 Diabetes mellitus long term care social worker insulin use: without long term care social worker use Primary hypertension I10 Hypertension type: primary hypertension Pure hypercholesterolemia E78.00 Hyperlipidemia type: pure hypercholesterolemia
[2024-12-30 08:14] LABS: Glucose, Whole Blood 182 mg/dL (60-115)
== END 2024-12-30 08:30 | disposition home or self-care (01) ==
LOC: HO.ENCR 07:51
PROVIDERS: PCP Nurse Practitioner Family; Visit Provider Physician Assistant
DX: E11.29 Type 2 diabetes mellitus with other diabetic kidney complication (principal); R80.9 Proteinuria, unspecified; I10 Essential (primary) hypertension; E78.00 Pure hypercholesterolemia, unspecified; Z13.9 Encounter for screening, unspecified

== ENCOUNTER → 2024-12-30 07:51 | Outpatient (BNVA) | payer BC, SELFPAY | PROVIDERS: PCP Nurse Practitioner Family; Visit Provider Physician Assistant | DX: E11.29 Type 2 diabetes mellitus with other diabetic kidney complication (principal); E78.00 Pure hypercholesterolemia, unspecified; R80.9 Proteinuria, unspecified; I10 Essential (primary) hypertension; Z79.84 Long term (current) use of oral hypoglycemic drugs | CPT/HCPCS: 82947; 83036 ==